=== PATIENT | male | born 1945 | race Caucasian/White ===

== ENCOUNTER → 2019-10-24 09:07 | Outpatient (BNVA) | payer OTHER, SELFPAY | PROVIDERS: PCP Internal Medicine Cardiovascular Disease; Visit Provider Urology | DX: N40.0 Benign prostatic hyperplasia without lower urinary tract symptoms (principal); N40.1 Benign prostatic hyperplasia with lower urinary tract symptoms; R97.20 Elevated prostate specific antigen [PSA]; N52.1 Erectile dysfunction due to diseases classified elsewhere | CPT/HCPCS: 81001 ==

== ENCOUNTER 2020-02-09 01:31 | Emergency (ER) | payer OTHER, SELFPAY ==
[2020-02-09 01:37] VITALS: BP 102/69; PULSE 86; RESP 18; TEMP 36.7; O2SAT 91; BMI 38.4
[2020-02-09 01:43] VITALS: BP 102/69; PULSE 85; RESP 27; O2SAT 94
--- NOTE | 2020-02-09 01:58 | CTR_ITS ---
PROCEDURE INFORMATION: Exam: CT Head Without Contrast Exam date and time: 02/09/2020 2:24 AM Age: 74 years old Clinical indication: Other: Generalized weakness TECHNIQUE: Imaging protocol: Computed tomography of the head without contrast. Radiation optimization: All CT scans at this facility use at least one of these dose optimization techniques: automated exposure control; mA and/or kV adjustment per patient size (includes targeted exams where dose is matched to clinical indication); or iterative reconstruction. COMPARISON: No relevant prior studies available. RADIATION DOSE METRICS: Total DLP (mGy-cm): 753.196 FINDINGS: Brain: Normal. No hemorrhage. Unremarkable white matter. No mass effect. Ventricles: Normal. No ventriculomegaly. Bones/joints: Unremarkable. No acute fracture. Sinuses: Visualized sinuses are unremarkable. No fluid levels. Mastoid air cells: Visualized mastoid air cells are well aerated. Soft tissues: Unremarkable. CT/CT head wo con* [id number] IMPRESSION: No acute intracranial abnormality. Radiation Dose CTDIVOL = (mGy): DLP = 753.196 (mGy-cm)
--- NOTE | 2020-02-09 01:58 | XRR_ITS ---
PROCEDURE INFORMATION: Exam: XR Chest, 1 View Exam date and time: 02/09/2020 2:23 AM Age: 74 years old Clinical indication: Other: Weakness TECHNIQUE: Imaging protocol: XR of the chest Views: 1 view. COMPARISON: No relevant prior studies available. FINDINGS: Lungs: Flu infiltrates versus atelectasis are seen in left base. No consolidation. Pleural space: Blunting of the left costophrenic angle is seen. No pneumothorax. Heart/Mediastinum: Unremarkable. No cardiomegaly. Bones/joints: Median sternotomy sutures are present. XR/XR chest 1V portable [id number] IMPRESSION: Few infiltrates versus atelectasis are seen in the left base with a small left pleural effusion.
--- NOTE | 2020-02-09 02:00 | ECG_ITS ---
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 Measurements Intervals [place] Rate: 83 P: 42 FL: 178 QRS: -61 QRSD: 103 T: 20 QT: 363 QTc: 427 Interpretive Statements SINUS RHYTHM PATTERN CONSISTENT WITH PULMONARY DISEASE LEFT ANTERIOR FASCICULAR BLOCK [QRS AXIS <= -45, QR IN I, RS IN II] No previous ECG available for comparison Electronically Signed On 02-09-2020 18:11:44 CDT by Juve Burrell M.D. [id number]
[2020-02-09] MEDS: sodium chloride 0.9% 1,000 ML 999 ML IV ×2 (02:22→05:01)
[2020-02-09 02:24] LABS: Basophils % 0.2 %; Hematocrit 43.1 % (42.0-52.0); Hemoglobin 14.3 g/dL (11.7-16.6); Lymphocytes # 0.5 10^3/uL (0.8-4.8); Lymphocytes % 10.9 %; Mean Corpuscular HGB Conc 33.2 g/dL (30.0-36.0); Mean Corpuscular Hemoglobin 29.9 pg (28.0-34.0); Mean Corpuscular Volume 90.2 fL (80-94); Mean Platelet Volume 9.5 fL (7.4-10.4); Monocytes # 0.4 10^3/uL (0.2-0.9); Monocytes % 7.5 %; Neutrophils # 3.86 10^3/uL (1.8-7.7); Neutrophils % 80.6 %; Nucleated Red Blood Cells % 0 %; Platelet Count 143 10^3/cmm (130-400); Red Blood Count 4.78 10^6/uL (4.1-5.3); Red Cell Distribution Width 12.9 % (12.1-15.1); White Blood Count 4.8 10^3/uL (4.0-10.0)
[2020-02-09 02:29] LABS: ABG PCO2 29.6 mmHg (35-45); ABG PH Result 7.41 (7.35-7.45); Arterial Blood Gas Hematocrit 43.9 % (42-52); Base Excess ABG -4.6 mmol/L (-2.0-2.0); Blood Gas Allen Test Pos; Blood Gas Sample Site Radial, right; Blood Gas Sample Type Arterial; HCO3 ABG 18.8 mmol/L (22-26); Oxygen Device NC; PO2 ABG 71.3 mmHg (80.0-100.0)
[2020-02-09 02:56] LABS: Alanine Aminotransferase 44 U/L (0-41); Albumin Level 4.4 g/dL (3.5-5.2); Alkaline Phosphatase 54 IU/L (40-130); Anion Gap 15.9 (5-19); Aspartate Amino Transferase 63 U/L (0-40); Blood Urea Nitrogen 15 mg/dL (8-23); Calcium 8.5 mg/dL (8.5-10.5); Carbon Dioxide 20 mmol/L (22-29); Chloride 100 mmol/L (98-107); Creatine Phosphokinase 99 U/L (39-308); Globulin 3.4 g/dL (1.3-4.6); Glucose 177 mg/dL (65-115); Magnesium 1.8 mg/dL (1.7-2.3); NT Pro B Type Natriuretic Pept 559 pg/mL (0-125); Osmolality Calculated 275 mOsm/kg (285-295); Potassium 3.9 mmol/L (3.5-5.1); Sodium 132 mmol/L (136-145); Total Bilirubin 0.4 mg/dL (0.15-1.2); Total Protein 7.8 g/dL (6.6-8.7)
[2020-02-09 03:19] VITALS: PULSE 83; RESP 28; O2SAT 94
[2020-02-09 03:19] LABS: Troponin(5th) Baseline 16 ng/L (0-15)
--- NOTE | 2020-02-09 04:00 | ECG_ITS ---
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 Measurements Intervals [place] Rate: 84 P: 57 [place]: 175 QRS: -63 QRSD: 110 T: 33 QT: 366 QTc: 433 Interpretive Statements SINUS RHYTHM PATTERN CONSISTENT WITH PULMONARY DISEASE RIGHT BUNDLE BRANCH BLOCK [120+ ms QRS DURATION, UPRIGHT V1, 40+ ms S IN I/aVL/V4/V5/V6] LEFT ANTERIOR FASCICULAR BLOCK [QRS AXIS <= -45, QR IN I, RS IN II] Compared to ECG 02/09/2020 02:29:04 Right bundle-branch block now present Electronically Signed On 02-09-2020 18:14:54 CDT by Juve Burrell M.D. [id number]
[2020-02-09 04:20] VITALS: BP 91/56; PULSE 82; RESP 24; O2SAT 93
[2020-02-09 04:48] LABS: Troponin 5 2HR 14.25 ng/L (0-15)
[2020-02-09 04:55] LABS: Troponin 5 2HR Delta -1.75 ABS# (0-10)
[2020-02-09 05:04] VITALS: BP 110/65; PULSE 81; RESP 20; O2SAT 92
[2020-02-09 06:19] LABS: Add Urine Microscopic? NO
[2020-02-09 06:27] LABS: Bilirubin Urine Neg (NEGATIVE); Blood Urine Neg (Negative); Glucose Urine UA Norm (Normal); Ketones Urine Negative (Negative); Leukocyte Esterase Urine Negative (Negative); Nitrate Urine Negative (Negative); Protein Urine Neg (Negative); Urine Appearance Clear (CLEAR); Urine Color Dark Yellow (Yellow); Urobilinogen Urine Norm (Negative); pH Urine 5 (5-7)
[2020-02-09 07:02] VITALS: BP 105/59; PULSE 78; RESP 20; O2SAT 92
--- NOTE | 2020-02-09 22:01 | W.ED.GENADLT ---
HPI - General Adult General: Chief complaint: General Medical Stated complaint: WEAKNESS/ FALL Time Seen by Provider: 02/09/20 01:47 History of Present Illness: HPI narrative: 74-year-old male presents not feeling well. He is generally weak all over. He is diaphoretic. He denies any chest pain, significant shortness of breath, other concerning symptoms. He has been growing weaker over the past couple of days, and slid out of bed tonight. He did not fall and injure himself, but could not get back up off the floor. 911 was called Onset (ago): day(s) Radiation: non-radiation Quality: other Pain Consistency: other Relieving factors: none Exacerbating factors: movement Associated symptoms: Reports diaphoresis, fevers/chills and weakness (generalized); Deny chest pain, confusion, cough, dyspnea, headache(s), rash, palpitations or vomiting Review of Systems Const: Reports: diaphoresis Eyes: Denies: change in vision or blurry vision ENMT: Denies: swelling of lips/tongue, post nasal drip or sinus pain Card: Denies: chest pain, palpitations, irregular heart rhythm, edema, swelling of feet/ankles, dyspnea on exertion or orthopnea Resp: Denies: dyspnea GI: Denies: vomiting : Denies: difficulty urinating, urinary urgency or hematuria Musc: Denies: neck pain, back pain, joint redness or joint warmth Skin/Breast: Denies: rash, pruritus or erythema Neuro: Denies: headache(s) or confusion Psych: Denies: anxiety, visual hallucinations or auditory hallucinations PFSH ED PFSH: Medical History (Updated 02/09/20 @ 06:09 by Pranav Thomas DO) BPH loc w urin obs/LUTS CHF (congestive heart failure) COPD (chronic obstructive pulmonary disease) Diabetes Elevated PSA Erectile dysfunction Hyperlipidemia Hypertension Surgical History History of thyroid surgery S/P angioplasties S/P CABG (coronary artery bypass graft) S/P tonsillectomy Stented coronary artery Family History Mother , 70's No problems noted. Father , 73 No problems noted. Social History Smoking and tobacco status: former smoker Alcohol intake: never Marital status: service: Yes Current occupational status: retired History of recent travel: No Physical Exam Const: GENERAL APPEARANCE: cooperative, well developed and ill appearing ORIENTATION/CONSCIOUSNESS: Yes oriented to person, Yes oriented to place and Yes oriented to time HENMT: COMMON NORMALS: normocephalic, external ears normal and Normal external nose present HEAD & SCALP: normocephalic FACE & SINUS: normal facial exam NOSE: Normal external nose present and No nasal discharge present EXTERNAL EAR: Yes external ears normal THROAT: posterior oropharynx normal; no peritonsillar mass Eye: COMMON NORMALS: Equal, round and reactive pupils present, EOMs intact bilaterally and conjunctivae normal EYELID: eyelids normal CONJUNCTIVA: Yes conjunctivae normal PUPIL: Yes Equal, round and reactive pupils present Neck/C-Spine: GENERAL: No tracheal deviation Chest: COMMONS NORMALS: normal inspection of the chest CHEST: No tenderness Resp: COMMON NORMALS: clear to auscultation bilaterally EFFORT & INSPECTION: No tachypneic, No respiratory distress, No retractions, No uses accessory muscles and No tracheal deviation AUSCULTATION: clear to auscultation bilaterally, no rhonchi, no wheezes and lung sounds not diminished Cardio: COMMON NORMALS: regular rate and regular rhythm RATE: regular rate RHYTHM: regular rhythm HEART SOUNDS: no murmurs PERIPHERAL PULSES: radial pulses present GI: INSPECTION: No abdominal distension AUSCULTATION: No Hyperactive bowel sounds present and No Hypoactive bowel sounds present PALPATION: No Guarding due to palpation present (GI) and No Rigid due to palpation PERCUSSION: no dullness to percussion and no tympanic to percussion : COMMON NORMALS: Yes no CVA tenderness BLADDER/KIDNEY EXAM: Yes no CVA tenderness Back/Pelvis: COMMON NORMALS: no CVA tenderness Neuro: SENSORIUM/ORIENTATION: Yes oriented to person, Yes oriented to place and Yes oriented to time Psych: COMMON NORMALS: mental status grossly normal Skin: COMMON NORMALS: no rashes or lesions noted GENERAL SKIN EXAM: no rashes or lesions noted Course Vital Signs: Vital signs: Vital Signs Temperature 98.1 F 02/09/20 01:37 Pulse Rate 78 02/09/20 07:02 Respiratory Rate 20 H 02/09/20 07:02 Blood Pressure 105/59 02/09/20 07:02 Pulse Oximetry 92 02/09/20 07:02 MDM - General Adult MDM Narrative: Medical decision making narrative: 74-year-old gentleman who presents ill-appearing, diaphoretic, and generally weak. His head CT is negative. Chest x-ray is negative. His bicarbonate level is 20 on serum. His blood gas shows a normal pH. His EKG did not reveal any acute ST changes. His troponin did not elevate. His urinalysis is negative. He has received quite a bit of IV fluid in the ER. His blood pressure was not low initially, and improved to normotensive. He is walked in the ER, and feels much better. He was given the option of observation admission, but would like to go home. Lab Data: Attestation: I reviewed the patient's lab results. Labs: Lab Results 02/09/20 02/09/20 02/09/20 Range/Units 02:17 02:17 02:17 WBC 4.8 (4.0-10.0) 10^3/ uL RBC 4.78 (4.1-5.3) 10^6/u L Hgb 14.3 (11.7-16.6) g/dL Hct 43.1 (42.0-52.0) % MCV 90.2 (80-94) fL MCH 29.9 (28.0-34.0) pg MCHC 33.2 (30.0-36.0) g/dL RDW 12.9 (12.1-15.1) % Plt Count 143 (130-400) 10^3/c mm MPV 9.5 (7.4-10.4) fL Neut % (Auto) 80.6 % Lymph % (Auto) 10.9 % [place] % (Auto) 7.5 % Eos % (Auto) 0.0 % Baso % (Auto) 0.2 % Neut # (Auto) 3.86 (1.8-7.7) 10^3/u L Lymph # (Auto) 0.5 L (0.8-4.8) 10^3/u L [place] # (Auto) 0.4 (0.2-0.9) 10^3/u L Eos # (Auto) 0.0 (0.0-0.8) 10^3/u L Baso # (Auto) 0.0 (0.0-0.1) 10^3/u L Nucleated RBC % (a uto) 0 % Nucleated RBCs # 0.0 /100WBC Specimen Type Sample Site ABG pH (7.35-7.45) ABG pCO2 (35-45) mmHg ABG pO2 (80.0-100.0) mmH g ABG HCO3 (22-26) mmol/L ABG Base Excess (-2.0-2.0) mmol/ L Noel Test Hematocrit (42-52) % O2 Delivery Device O2 Liters/Min % Branch Sales And Service Representative ID Sodium 132 L (136-145) mmol/L Potassium 3.9 (3.5-5.1) mmol/L Chloride 100 (98-107) mmol/L Carbon Dioxide 20 L (22-29) mmol/L Anion Gap 15.9 (5-19) BUN 15 (8-23) mg/dL Creatinine 1.2 (0.7-1.2) mg/dL GFR Calculation Not Reportable Glucose 177 H (65-115) mg/dL Calculated Osmolal ity 275 L (285-295) mOsm/k g Calcium 8.5 (8.5-10.5) mg/dL Magnesium 1.8 (1.7-2.3) mg/dL Total Bilirubin 0.4 (0.15-1.2) mg/dL AST 63 H (0-40) U/L ALT 44 H (0-41) U/L Alkaline Phosphata se 54 (40-130) IU/L Creatine Kinase 99 (39-308) U/L Troponin T Baselin e 16 H (0-15) ng/L Troponin T 120 Min [place] (0-15) ng/L Delta Troponin T (0-10) ABS# NT-Pro-B Natriuret Pep 559 H (0-125) pg/mL Total Protein 7.8 (6.6-8.7) g/dL Albumin 4.4 (3.5-5.2) g/dL Globulin 3.4 (1.3-4.6) g/dL Urine Color (Yellow) Urine Appearance (CLEAR) Urine pH (5-7) Ur Specific Gravit y (1.005-1.030) Urine Protein (Negative) Urine Glucose (UA) (Normal) Urine Ketones (Negative) Urine Blood (Negative) Urine Nitrate (Negative) Urine Bilirubin (NEGATIVE) Urine Urobilinogen (Negative) mg/dL Ur Leukocyte Monika ase (Negative) 02/09/20 02/09/20 02/09/20 Range/Units 02:20 04:21 06:09 WBC (4.0-10.0) 10^3/ uL RBC (4.1-5.3) 10^6/u L Hgb (11.7-16.6) g/dL Hct (42.0-52.0) % MCV (80-94) fL MCH (28.0-34.0) pg MCHC (30.0-36.0) g/dL RDW (12.1-15.1) % Plt Count (130-400) 10^3/c mm MPV (7.4-10.4) fL Neut % (Auto) % Lymph % (Auto) % [place] % (Auto) % Eos % (Auto) % Baso % (Auto) % Neut # (Auto) (1.8-7.7) 10^3/u L Lymph # (Auto) (0.8-4.8) 10^3/u L [place] # (Auto) (0.2-0.9) 10^3/u L Eos # (Auto) (0.0-0.8) 10^3/u L Baso # (Auto) (0.0-0.1) 10^3/u L Nucleated RBC % (a uto) % Nucleated RBCs # /100WBC Specimen Type Arterial Sample Site Radial, right ABG pH 7.41 (7.35-7.45) ABG pCO2 29.6 L (35-45) mmHg ABG pO2 71.3 L (80.0-100.0) mmH g ABG HCO3 18.8 L (22-26) mmol/L ABG Base Excess -4.6 L (-2.0-2.0) mmol/ L Noel Test Pos Hematocrit 43.9 (42-52) % O2 Delivery Device Nc O2 Liters/Min 2.0 % Branch Sales And Service Representative ID ellpe Sodium (136-145) mmol/L Potassium (3.5-5.1) mmol/L Chloride (98-107) mmol/L Carbon Dioxide (22-29) mmol/L Anion Gap (5-19) BUN (8-23) mg/dL Creatinine (0.7-1.2) mg/dL GFR Calculation Glucose (65-115) mg/dL Calculated Osmolal ity (285-295) mOsm/k g Calcium (8.5-10.5) mg/dL Magnesium (1.7-2.3) mg/dL Total Bilirubin (0.15-1.2) mg/dL AST (0-40) U/L ALT (0-41) U/L Alkaline Phosphata se (40-130) IU/L Creatine Kinase (39-308) U/L Troponin T Baselin e (0-15) ng/L Troponin T 120 Min [place] 14.25 (0-15) ng/L Delta Troponin T -1.75 L (0-10) ABS# NT-Pro-B Natriuret Pep (0-125) pg/mL Total Protein (6.6-8.7) g/dL Albumin (3.5-5.2) g/dL Globulin (1.3-4.6) g/dL Urine Color Dark yellow (Yellow) Urine Appearance Clear (CLEAR) Urine pH 5 (5-7) Ur Specific Gravit y 1.020 (1.005-1.030) Urine Protein Neg (Negative) Urine Glucose (UA) Norm (Normal) Urine Ketones Negative (Negative) Urine Blood Neg (Negative) Urine Nitrate Negative (Negative) Urine Bilirubin Neg (NEGATIVE) Urine Urobilinogen Norm (Negative) mg/dL Ur Leukocyte Monika ase Negative (Negative) Discharge Plan Discharge Patient Disposition: Home Clinical Impression: Weakness, Acute dehydration Condition: Stable Prescriptions: No Action ipratropium-albuterol 0.5 mg-3 mg(2.5 mg base)/3 mL solution for nebulization 3 ml INHALATION Q6H PRNRF: 0 metformin 1,000 mg tablet 1,000 mg PO DAILY RF: 0 amlodipine 5 mg tablet 5 mg PO DAILY RF: 0 Combivent Respimat 20-100 mcg/actuation mist 1 puff INHALATION Q6H RF: 0 pravastatin 80 mg tablet 80 mg PO DAILY RF: 0 tamsulosin 0.4 mg capsule 0.4 mg PO DAILY RF: 0 spironolactone 25 mg tablet 25 mg PO DAILY RF: 0 furosemide 20 mg tablet 20 mg PO DAILY RF: 0 Fiber Smooth Powder 1 tbsp PO DAILY RF: 0 nitroglycerin 0.3 mg tablet, sublingual 0.3 mg SUBLINGUAL Q5M PRNRF: 0 budesonide-formoterol [Symbicort] 80-4.5 mcg/actuation HFA aerosol inhaler 2 puff INHALATION BID RF: 0 clopidogrel 75 mg tablet 75 mg PO DAILY RF: 0 cholecalciferol (vitamin D3) 1,250 mcg (50,000 unit) capsule PO RF: 0 carvedilol 25 mg tablet 25 mg PO BID RF: 0 aspirin [Adult Aspirin Regimen] 81 mg tablet,delayed release (DR/EC) 81 mg PO DAILY RF: 0 levothyroxine 75 mcg capsule 75 mcg PO DAILY RF: 0 Spiriva Respimat 2.5 mcg/actuation mist 2 inh INHALATION QAM RF: 0 artifi.tears(hypromellose)(PF) 0.3 % drops 1 drop ophthalmic (eye) DAILY PRNRF: 0 Ultra CoQ10 75 mg capsule 75 mg PO DAILY RF: 0 Discharge Orders: Discharge Order (Routine); Ordered 02/09/20 Ordered By: Abril Lynne Referrals: Chau Duncan [Primary Care Provider] - 4-7 days Discharge Diet: Advance as tolerated Discharge Activity: Increase activity as tolerated Patient Instructions: Dehydration (ED), Weakness (ED) Activity Restrictions/Additional Instructions: Make sure you are drinking plenty of fluids, especially for the next 48 hours. For fever greater than 100, mental status changes, syncope or passing out, chest discomfort, other concerning symptoms. Discharge Date/Time: 02/09/20 07:02 Coding Level of Care Code ED [employer] for [facility]
== END 2020-02-09 07:02 | disposition home or self-care (01) ==
PROVIDERS: Emergency Provider Emergency Medicine; PCP Family Medicine
DX: R53.1 Weakness (principal); E86.0 Dehydration; Z79.02 Long term (current) use of antithrombotics/antiplatelets; Z79.82 Long term (current) use of aspirin; Z79.84 Long term (current) use of oral hypoglycemic drugs; I11.0 Hypertensive heart disease with heart failure; I50.9 Heart failure, unspecified; J44.9 Chronic obstructive pulmonary disease, unspecified; E11.9 Type 2 diabetes mellitus without complications; E78.5 Hyperlipidemia, unspecified; Z95.1 Presence of aortocoronary bypass graft; Z87.891 Personal history of nicotine dependence
CPT/HCPCS: 12345; 36600; 70450; 71045; 80053; 81003; 82550; 82803; 83735; 83880; 84484; 85025; 93005; 96360; 96361; 99282; 99284; J7030

== ENCOUNTER 2020-02-12 10:02 | Inpatient (IN) | payer OTHER, MEDICARE, SELFPAY ==
[2020-02-12] VITALS (7 sets, daily range): BP systolic 105–119; BP diastolic 68–73; PULSE 71–83; RESP 18–24; TEMP 36.6–37; O2SAT 91–95; BMI 38.4
--- NOTE | 2020-02-12 10:56 | ECG_ITS ---
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 Measurements Intervals [place] Rate: 80 P: [place]: -1 QRS: -65 QRSD: 111 T: 11 QT: 404 QTc: 468 Interpretive Statements SUPRAVENTRICULAR RHYTHM PATTERN CONSISTENT WITH PULMONARY DISEASE RIGHT BUNDLE BRANCH BLOCK [120+ ms QRS DURATION, UPRIGHT V1, 40+ ms S IN I/aVL/V4/V5/V6] LEFT ANTERIOR FASCICULAR BLOCK [QRS AXIS <= -45, QR IN I, RS IN II] Compared to ECG 02/09/2020 04:18:47 Supraventricular rhythm now present Sinus rhythm no longer present Electronically Signed On 02-12-2020 20:20:01 CDT by Juve Burrell M.D. [id number]
--- NOTE | 2020-02-12 10:56 | XR_ITS ---
WS: [id number] PORTABLE CHEST HISTORY: dyspnea/cough COMPARISON: 02/09/2020 Prior CABG. Study limited by motion. Chronic emphysema. Partial obscuration of the LEFT diaphragm is probably due to areas of atelectasis and pleural thickening. There is increased pleural fat. No pneumothorax. Cardiac size: Mildly enlarged cardiac silhouette. Mediastinum/Aorta: Mild atherosclerosis aorta. No osseous abnormality seen. XR/XR chest 1V portable [id number] IMPRESSION: Chronic emphysema and cardiomegaly. Small LEFT pleural effusion versus pleural thickening.
[2020-02-12 11:41] LABS: Mean Corpuscular HGB Conc 34.2 g/dL (30.0-36.0); Mean Corpuscular Hemoglobin 29.5 pg (28.0-34.0); Mean Corpuscular Volume 86.2 fL (80-94); Mean Platelet Volume 11.6 fL (7.4-10.4); Platelet Count 71 10^3/cmm (130-400); Red Blood Count 4.41 10^6/uL (4.1-5.3); Red Cell Distribution Width 12.6 % (12.1-15.1); White Blood Count 4.8 10^3/uL (4.0-10.0)
[2020-02-12 11:58] LABS: Troponin(5th) Baseline 20 ng/L (0-15)
[2020-02-12 11:59] LABS: Lactic Sepsis W/Reflex 2.1 mmol/L (0.5-2.2)
--- NOTE | 2020-02-12 12:00 | ED_ITS ---
HPI - SOB/Dyspnea General: Chief Complaint: Shortness of Breath/Dyspnea Stated Complaint: COVID SYMPTOMS/WEAKNESS/FALL Time Seen by Provider: 02/12/20 10:08 History of Present Illness: HPI Narrative: 74-year-old male complaining of cough congestion for the last week. He was seen earlier in the week and evaluation was unremarkable. Reviewed those previous notes he is not usually on O2 but now is requiring 2 L/min to maintain his sats in the upper 90s he is not had a productive cough is not had any anosmia. He has had some loss of appetite. Said significant myalgias no nausea vomiting or diarrhea denies fever. Has not been around anyone he knows that his COVID positive he has orthopnea chronically and does not really notice a significant difference. MD elicited complaint: shortness of breath and cough Pertinent past history: COPD and congestive heart failure Onset (ago): day(s) Context: occurred during exertion Timing: constant Severity: moderate Exacerbating factors: exertion Relieving factors: oxygen and rest Known history of: COPD and congestive heart failure Associated symptoms: Reports chest congestion and diaphoresis; Deny abdominal pain, chest pain, cough, dizziness, extremity pain, fever(s), hemoptysis, lightheadedness, myalgias, nausea, orthopnea, palpitations, paresthesias, polydipsia, polyuria, rash, sense of impending doom, syncope or vomiting Treatment prior to arrival: none Review of Systems Const: Reports: diaphoresis; Denies: fever(s) ENMT: Denies: throat pain, ear or mastoid pain, nasal discharge or nasal congestion Card: Denies: chest pain, palpitations, lightheadedness, syncope or orthopnea Resp: Reports: chest congestion; Denies: hemoptysis GI: Denies: abdominal pain, nausea or vomiting : Denies: flank pain, dysuria, urinary frequency or urinary urgency Musc: Denies: extremity pain Skin/Breast: Denies: rash or pruritus Neuro: Denies: dizziness Endo: Denies: polyuria or polydipsia PFSH ED PFSH: Medical History (Updated 02/17/20 @ 06:32 by Jeff Hart DO) BPH loc w urin obs/LUTS CHF (congestive heart failure) COPD (chronic obstructive pulmonary disease) Diabetes Elevated PSA Erectile dysfunction Hyperlipidemia Hypertension Surgical History History of thyroid surgery S/P angioplasties S/P CABG (coronary artery bypass graft) S/P tonsillectomy Stented coronary artery Family History Mother , 70's No problems noted. Father , 73 No problems noted. Social History Smoking and tobacco status: former smoker Alcohol intake: never Marital status: service: Yes Current occupational status: retired History of recent travel: No Physical Exam Const: COMMON NORMALS: no acute distress GENERAL APPEARANCE: cooperative and comfortable ORIENTATION/CONSCIOUSNESS: Yes awake, Yes oriented to person, Yes oriented to place and Yes oriented to time HENMT: COMMON NORMALS: normocephalic, atraumatic and hearing grossly normal bilaterally HEAD & SCALP: normocephalic and atraumatic Eye: COMMON NORMALS: Equal, round and reactive pupils present, EOMs intact bilaterally, conjunctivae normal and no scleral icterus CONJUNCTIVA: Yes conjunctivae normal PUPIL: Yes Equal, round and reactive pupils present Neck/C-Spine: COMMON NORMALS: full ROM, no lymphadenopathy and supple Lymph: LYMPHATIC: no lymphadenopathy noted and no lymphedema noted Resp: AUSCULTATION: rales, rhonchi, wheezes and diminished lung sounds Cardio: COMMON NORMALS: regular rate, regular rhythm and No murmurs present (Cardio) RATE: regular rate RHYTHM: regular rhythm GI: COMMON NORMALS: Soft to palpation and No hepatosplenomegaly present AUSCULTATION: Yes normoactive bowel sounds PALPATION: Yes Soft to palpation, No Tenderness to palpation present (GI), No Guarding due to palpation present (GI) and Yes No hepatosplenomegaly present Extremity: COMMON NORMALS: normal to inspection, capillary refill normal, no clubbing, cyanosis or edema, no calf tenderness and no pedal edema Neuro: SENSORIUM/ORIENTATION: Yes oriented to person, Yes oriented to place and Yes oriented to time Skin: COMMON NORMALS: no rashes or lesions noted GENERAL SKIN EXAM: no rashes or lesions noted Course Vital Signs: Vital signs: Vital Signs Temperature 98.3 F 02/17/20 04:54 Pulse Rate 65 02/17/20 04:54 Respiratory Rate 18 08/24/20 04:54 Blood Pressure 96/56 02/17/20 04:54 Pulse Oximetry 91 02/17/20 04:54 MDM - SOB/Dyspnea MDM Narrative: Medical decision making narrative: Rapid COVID test positive. Suspect the patient will require aggressive therapy will admit started on dexamethasone discussed with Dr. Flanagan he will admit to the MICU. Lab Data: Attestation: I reviewed the patient's lab results. Labs: Lab Results 02/12/20 02/12/20 02/12/20 Range/Units 11:25 11:25 11:25 WBC 4.8 (4.0-10.0) 10^3/ uL RBC 4.41 (4.1-5.3) 10^6/u L Hgb 13.0 (11.7-16.6) g/dL Hct 38.0 L (42.0-52.0) % MCV 86.2 (80-94) fL MCH 29.5 (28.0-34.0) pg MCHC 34.2 (30.0-36.0) g/dL RDW 12.6 (12.1-15.1) % Plt Count 71 L (130-400) 10^3/c mm MPV 11.6 H (7.4-10.4) fL Lymph % (Auto) Not Reportable [place] % (Auto) Not Reportable Lymph # (Auto) Not Reportable [place] # (Auto) Not Reportable Total Counted 100 (0-100) Atypical Lymphs % 16.0 H (0-5) % Absolute Neutrophi ls 3.5 (1.4-6.5) 10^3/c mm Segmented Neutroph ils 73 % Abs Segm Neuts (Ma n) 3.5 (1.6-7.1) 10/cmm Band Neutrophils 0.0 % Abs Band Neuts (Ma n) 0.0 (0.0-1.2) 10^3/c mm Absolute Lymphocyt es 1.1 L (1.2-3.4) 10^3/c mm Lymphocytes (Manua l) 6 % Monocytes (Manual) 4.0 % Absolute Monocytes 0.2 (0.1-0.6) 10^3/c mm Myelocytes 1.0 % Platelet Estimate Decreased (Normal) Anisocytosis Trace Fibrinogen (174-498) mg/dL D-Dimer (0-0.59) ug/mIFE U Sodium 125 L (136-145) mmol/L Potassium 3.3 L (3.5-5.1) mmol/L Chloride 90 L (98-107) mmol/L Carbon Dioxide 24 (22-29) mmol/L Anion Gap 14.3 (5-19) BUN 10 (8-23) mg/dL Creatinine 1.1 (0.7-1.2) mg/dL GFR Calculation Not Reportable Glucose 139 H (65-115) mg/dL Calculated Osmolal ity 258 L (285-295) mOsm/k g Lactic Acid 2.1 (0.5-2.2) mmol/L Lactic Acid (Sepsi s) (0.5-2.2) mmol/L Calcium 7.8 L (8.5-10.5) mg/dL Magnesium (1.7-2.3) mg/dL Ferritin (30-400) ng/mL Total Bilirubin 0.6 (0.15-1.2) mg/dL AST 99 H (0-40) U/L ALT 53 H (0-41) U/L Alkaline Phosphata se 52 (40-130) IU/L Lactate Dehydrogen ase (135-225) U/L Creatine Kinase 246 (39-308) U/L Troponin T Baselin e (0-15) ng/L Troponin T 120 Min native (0-15) ng/L Delta Troponin T (0-10) ABS# C-Reactive Protein (0.0-4.9) mg/L NT-Pro-B Natriuret Pep 2170 H (0-125) pg/mL Total Protein 6.6 (6.6-8.7) g/dL Albumin 3.5 (3.5-5.2) g/dL Globulin 3.1 (1.3-4.6) g/dL Procalcitonin (0-0.5) ng/mL SARS-CoV-2 Ag (Rap id) (Negative) 02/12/20 02/12/20 02/12/20 Range/Units 11:25 11:25 11:25 WBC (4.0-10.0) 10^3/ uL RBC (4.1-5.3) 10^6/u L Hgb (11.7-16.6) g/dL Hct (42.0-52.0) % MCV (80-94) fL MCH (28.0-34.0) pg MCHC (30.0-36.0) g/dL RDW (12.1-15.1) % Plt Count (130-400) 10^3/c mm MPV (7.4-10.4) fL Lymph % (Auto) [place] % (Auto) Lymph # (Auto) [place] # (Auto) Total Counted (0-100) Atypical Lymphs % (0-5) % Absolute Neutrophi ls (1.4-6.5) 10^3/c mm Segmented Neutroph ils % Abs Segm Neuts (Ma n) (1.6-7.1) 10/cmm Band Neutrophils % Abs Band Neuts (Ma n) (0.0-1.2) 10^3/c mm Absolute Lymphocyt es (1.2-3.4) 10^3/c mm Lymphocytes (Manua l) % Monocytes (Manual) % Absolute Monocytes (0.1-0.6) 10^3/c mm Myelocytes % Platelet Estimate (Normal) Anisocytosis Fibrinogen 372 (174-498) mg/dL D-Dimer 3.80 H (0-0.59) ug/mIFE U Sodium (136-145) mmol/L Potassium (3.5-5.1) mmol/L Chloride (98-107) mmol/L Carbon Dioxide (22-29) mmol/L Anion Gap (5-19) BUN (8-23) mg/dL Creatinine (0.7-1.2) mg/dL GFR Calculation Glucose (65-115) mg/dL Calculated Osmolal ity (285-295) mOsm/k g Lactic Acid (0.5-2.2) mmol/L Lactic Acid (Sepsi s) (0.5-2.2) mmol/L Calcium (8.5-10.5) mg/dL Magnesium (1.7-2.3) mg/dL Ferritin (30-400) ng/mL Total Bilirubin (0.15-1.2) mg/dL AST (0-40) U/L ALT (0-41) U/L Alkaline Phosphata se (40-130) IU/L Lactate Dehydrogen ase (135-225) U/L Creatine Kinase (39-308) U/L Troponin T Baselin e 20 H (0-15) ng/L Troponin T 120 Min native (0-15) ng/L Delta Troponin T (0-10) ABS# C-Reactive Protein (0.0-4.9) mg/L NT-Pro-B Natriuret Pep (0-125) pg/mL Total Protein (6.6-8.7) g/dL Albumin (3.5-5.2) g/dL Globulin (1.3-4.6) g/dL Procalcitonin (0-0.5) ng/mL SARS-CoV-2 Ag (Rap id) Positive H (Negative) 02/12/20 02/12/20 02/12/20 Range/Units 13:50 13:50 13:50 WBC (4.0-10.0) 10^3/ uL RBC (4.1-5.3) 10^6/u L Hgb (11.7-16.6) g/dL Hct (42.0-52.0) % MCV (80-94) fL MCH (28.0-34.0) pg MCHC (30.0-36.0) g/dL RDW (12.1-15.1) % Plt Count (130-400) 10^3/c mm MPV (7.4-10.4) fL Lymph % (Auto) [place] % (Auto) Lymph # (Auto) [place] # (Auto) Total Counted (0-100) Atypical Lymphs % (0-5) % Absolute Neutrophi ls (1.4-6.5) 10^3/c mm Segmented Neutroph ils % Abs Segm Neuts (Ma n) (1.6-7.1) 10/cmm Band Neutrophils % Abs Band Neuts (Ma n) (0.0-1.2) 10^3/c mm Absolute Lymphocyt es (1.2-3.4) 10^3/c mm Lymphocytes (Manua l) % Monocytes (Manual) % Absolute Monocytes (0.1-0.6) 10^3/c mm Myelocytes % Platelet Estimate (Normal) Anisocytosis Fibrinogen (174-498) mg/dL D-Dimer (0-0.59) ug/mIFE U Sodium (136-145) mmol/L Potassium (3.5-5.1) mmol/L Chloride (98-107) mmol/L Carbon Dioxide (22-29) mmol/L Anion Gap (5-19) BUN (8-23) mg/dL Creatinine (0.7-1.2) mg/dL GFR Calculation Glucose (65-115) mg/dL Calculated Osmolal ity (285-295) mOsm/k g Lactic Acid (0.5-2.2) mmol/L Lactic Acid (Sepsi s) 2.0 (0.5-2.2) mmol/L Calcium (8.5-10.5) mg/dL Magnesium 1.8 (1.7-2.3) mg/dL Ferritin 5912 H (30-400) ng/mL Total Bilirubin (0.15-1.2) mg/dL AST (0-40) U/L ALT (0-41) U/L Alkaline Phosphata se (40-130) IU/L Lactate Dehydrogen ase 512 H (135-225) U/L Creatine Kinase (39-308) U/L Troponin T Baselin e (0-15) ng/L Troponin T 120 Min native 18.29 H (0-15) ng/L Delta Troponin T -1.71 L (0-10) ABS# C-Reactive Protein 36.2 H (0.0-4.9) mg/L NT-Pro-B Natriuret Pep (0-125) pg/mL Total Protein (6.6-8.7) g/dL Albumin (3.5-5.2) g/dL Globulin (1.3-4.6) g/dL Procalcitonin 0.26 (0-0.5) ng/mL SARS-CoV-2 Ag (Rap id) (Negative) Discharge Plan Discharge Patient Disposition: Admitted As Inpatient Admit Provider: Izabella Flanagan Clinical Impression: COVID-19, CHF (congestive heart failure), Diabetes, Hypertension, BPH loc w urin obs/LUTS, Elevated PSA Condition: Stable Referrals: Chau Duncan [Primary Care Provider] - Interventions: ED Discharge Assessment Last Done: 02/12/20 15:44 ED Charges Last Done: 02/12/20 12:18 Discharge Date/Time: 08/19/20 15:45 Coding Level of Care Code ED Dental Laboratory Worker for Chg Fwd Exam Comprehensive
[2020-02-12 12:05] LABS: Alanine Aminotransferase 53 U/L (0-41); Albumin Level 3.5 g/dL (3.5-5.2); Alkaline Phosphatase 52 IU/L (40-130); Anion Gap 14.3 (5-19); Aspartate Amino Transferase 99 U/L (0-40); Blood Urea Nitrogen 10 mg/dL (8-23); Calcium 7.8 mg/dL (8.5-10.5); Carbon Dioxide 24 mmol/L (22-29); Chloride 90 mmol/L (98-107); Creatine Phosphokinase 246 U/L (39-308); Globulin 3.1 g/dL (1.3-4.6); Glucose 139 mg/dL (65-115); NT Pro B Type Natriuretic Pept 2170 pg/mL (0-125); Osmolality Calculated 258 mOsm/kg (285-295); Potassium 3.3 mmol/L (3.5-5.1); Sodium 125 mmol/L (136-145); Total Bilirubin 0.6 mg/dL (0.15-1.2); Total Protein 6.6 g/dL (6.6-8.7)
[2020-02-12 12:15] LABS: Slide Review Slide Review Perform
[2020-02-12 12:27] LABS: Anisocytosis Trace
[2020-02-12 12:28] LABS: Absolute Neutrophil 3.5 10^3/cmm (1.4-6.5); Absolute Segmented Neutrophil 3.5 10/cmm (1.6-7.1); Lymphocytes 6 %; Lymphocytes Absolute 1.1 10^3/cmm (1.2-3.4); Monocytes Absolute 0.2 10^3/cmm (0.1-0.6); Platelet Estimate Decreased (Normal); Segmented Neutrophils 73 %; Total Cells Counted 100 (0-100)
--- NOTE | 2020-02-12 12:56 | ECG_ITS ---
[facility] Test Date: 2020-02-12 Pat Name: Chau Monroe Department: Room: Gender: Male Visual Coordinator: : 1945 Requested By: Jeff Givens Order Number: [id number] Fernandez MD: Juve Burrell M.D. Measurements Intervals [place] Rate: 80 P: 97 MN: 164 QRS: -63 QRSD: 107 T: 33 QT: 387 QTc: 446 Interpretive Statements SINUS RHYTHM PATTERN CONSISTENT WITH PULMONARY DISEASE RIGHT BUNDLE BRANCH BLOCK [120+ ms QRS DURATION, UPRIGHT V1, 40+ ms S IN I/aVL/V4/V5/V6] LEFT ANTERIOR FASCICULAR BLOCK [QRS AXIS <= -45, QR IN I, RS IN II] Compared to ECG 02/12/2020 11:26:44 Supraventricular rhythm no longer present Electronically Signed On 02-12-2020 20:26:37 CDT by Juve Burrell M.D. [id number]
--- NOTE | 2020-02-12 13:03 | PC.NURSE ---
EKG done at 1300 and shown to ER doctor
[2020-02-12 13:20] LABS: Reflex Lactate Order REFLEX LACTIC ORDERD
[2020-02-12 13:32] LABS: SARS Covid-2 Antigen Positive (Negative)
[2020-02-12 14:18] LABS: Fibrinogen 372 mg/dL (174-498)
[2020-02-12 14:28] LABS: Lactate Dehydrogenase 512 U/L (135-225); Magnesium 1.8 mg/dL (1.7-2.3)
[2020-02-12 14:32] LABS: Troponin 5 2HR 18.29 ng/L (0-15)
[2020-02-12] MEDS: dexamethasone 4 mg/mL INJ 6 MG IVP (14:33)
[2020-02-12 14:43] LABS: Troponin 5 2HR Delta -1.71 ABS# (0-10)
[2020-02-12 14:54] LABS: Procalcitonin 0.26 ng/mL (0-0.5)
[2020-02-12 15:05] LABS: C Reactive Protein 36.2 mg/L (0.0-4.9)
[2020-02-12 15:22] LABS: Ferritin 5912 ng/mL (30-400)
--- NOTE | 2020-02-12 16:56 | ECG_ITS ---
[facility] Test Date: 2020-02-12 Pat Name: Chau Monroe Department: Room: Gender: Male Painter Assistant: : 1945 Requested By: Jeff Givens Order Number: [id number] Fernandez MD: Juve Burrell M.D. Measurements Intervals [place] Rate: 79 P: 59 SC: 156 QRS: -64 QRSD: 110 T: 33 QT: 394 QTc: 453 Interpretive Statements SINUS RHYTHM PATTERN CONSISTENT WITH PULMONARY DISEASE RIGHT BUNDLE BRANCH BLOCK [120+ ms QRS DURATION, UPRIGHT V1, 40+ ms S IN I/aVL/V4/V5/V6] LEFT ANTERIOR FASCICULAR BLOCK [QRS AXIS <= -45, QR IN I, RS IN II] Compared to ECG 02/12/2020 11:27:57 No significant changes Electronically Signed On 02-12-2020 20:26:43 CDT by Juve Burrell M.D. [id number]
--- NOTE | 2020-02-12 17:05 | PM.HP ---
Providers/Chief Complaint Admitting Physician: Izabella Flanagan DO Primary Care Provider: Chau Duncan Chief Complaint: COVID SYMPTOMS/WEAKNESS/FALL History of Present Illness Chau Monroe is a 74 year old male with a past medical history of hypertension, diabetes, coronary artery disease and BPH that presented to the emergency department today for generalized weakness and shortness of breath. He stated that his symptoms have been progressive and ongoing for over a week. He stated that he was seen and evaluated in the emergency department on Monday due to generalized weakness and falling out of bed. He states that he continued to decline at home therefore came into the ER today for further evaluation and treatment. Patient noted nonproductive cough with occasional phlegm over the past few days, reports fatigue and malaise and generalized body aches. Stated that he is been unable to do any type of daily routine activities due to his significant fatigue. He denies any exposure to anyone known positive or under investigation per COVID-19. Reports that him and his have been very cautious, however they have been in public. Patient was seen and evaluated in the emergency department noted to have concern for COVID-19 viral pneumonia and admitted for further evaluation and treatment due to hypoxemia. Review of Systems Const: Reports: fever(s), body aches, change in appetite, fatigue and malaise; Denies: chills Eyes: Denies: change in vision ENMT: Denies: nasal congestion Card: Denies: chest pain, palpitations or edema Resp: Reports: dyspnea, productive cough (Occasional productive cough) and non-productive cough; Denies: hemoptysis GI: Reports: other (Decreased appetite); Denies: abdominal pain, nausea, vomiting, diarrhea, constipation, hematochezia or melena : Denies: dysuria or hematuria Musc: Denies: extremity pain or muscle cramps Skin/Breast: Denies: rash or new lesions Neuro: Denies: headache(s) or dizziness Psych: Denies: anxiety or depression Endo: Denies: polyuria or hot flashes [place]/Lymph: Denies: easy bruising or easy bleeding Medications/Allergies Home Medications Medication Instructions Recorded Confirmed Last Taken Type amlodipine 5 mg tablet 5 mg PO DAILY 10/24/19 02/12/20 02/11/20 History artifi.tears(hypromellose)(PF) 0.3 1 drop OPHTHALMIC (EYE) BID PRN 10/24/19 02/12/20 Unknown History % eye drops aspirin 81 mg tablet,delayed 162 mg PO DAILY 10/24/19 02/12/20 02/12/20 History release carvedilol 25 mg tablet 25 mg PO BID 10/24/19 02/12/20 02/12/20 History clopidogrel 75 mg tablet 75 mg PO DAILY 10/24/19 02/12/20 02/12/20 History furosemide 20 mg tablet 20 mg PO DAILY 10/24/19 02/12/20 02/12/20 History ipratropium 0.5 mg-albuterol 3 mg 3 ml INHALATION QID PRN 10/24/19 02/12/20 02/12/20 History (2.5 mg base)/3 mL nebulization soln ipratropium 20 mcg-albuterol 100 1 puff INHALATION QID 10/24/19 02/12/20 Unknown History mcg/actuation mist for inhalation levothyroxine 75 mcg capsule 75 mcg PO DAILY 10/24/19 02/12/20 Unknown History metformin 1,000 mg tablet 500 mg PO TID 10/24/19 02/12/20 02/12/20 08:00 History pravastatin 80 mg tablet 80 mg PO DAILY 10/24/19 02/12/20 Unknown History psyllium 2 tsp PO DAILY 10/24/19 02/12/20 Unknown History spironolactone 25 mg tablet 25 mg PO DAILY 10/24/19 02/12/20 Unknown History tamsulosin 0.4 mg capsule 0.4 mg PO DAILY 10/24/19 02/12/20 Unknown History tiotropium bromide 2.5 2 inh INHALATION QAM 10/24/19 02/12/20 02/12/20 History mcg/actuation mist for inhalation Fish Oil 2 cap PO BID 02/12/20 02/12/20 Unknown History budesonide-formoterol 2 puff INHALATION BID 02/12/20 02/12/20 02/12/20 History cholecalciferol (vitamin D3) 800 unit PO DAILY 02/12/20 02/12/20 Unknown History [Vitamin D3] methocarbamol 750 - 1,500 mg PO TID PRN 02/12/20 02/12/20 Unknown History mupirocin 1 applic TOPICAL BID PRN 02/12/20 02/12/20 Unknown History nitroglycerin [Nitrostat] 0.4 mg SUBLINGUAL Q5M PRN 02/12/20 02/12/20 Unknown History omeprazole 20 mg PO DAILY PRN 02/12/20 02/12/20 Unknown History Allergies Allergy/AdvReac Type Severity Reaction Status Date / Time atorvastatin [From Lipitor] Allergy muslce Verified 02/09/20 01:43 weakness PFSH Acute PFSH: Medical History BPH loc w urin obs/LUTS CHF (congestive heart failure) COPD (chronic obstructive pulmonary disease) Diabetes Elevated PSA Erectile dysfunction Hyperlipidemia Hypertension Surgical History History of thyroid surgery S/P angioplasties S/P CABG (coronary artery bypass graft) S/P tonsillectomy Stented coronary artery Family History Mother , 70's No problems noted. Father , 73 No problems noted. Social History Smoking and tobacco status: former smoker Alcohol intake: never Marital status: service: Yes Current occupational status: retired History of recent travel: No Vitals/I&O/Wt Last Vital Signs Temp 98.6 F 02/12/20 16:20 Pulse 82 02/12/20 16:20 Resp 22 H 02/12/20 16:20 BP 119/73 02/12/20 16:20 Pulse Ox 95 02/12/20 16:20 Weight last 48 hrs Weight 117.934 kg Physical Exam Const: COMMON NORMALS: patient oriented x3 and alert GENERAL APPEARANCE: cooperative ORIENTATION/CONSCIOUSNESS: Yes awake, Yes oriented to person, Yes oriented to place and Yes oriented to time HENMT: COMMON NORMALS: normocephalic and atraumatic HEAD & SCALP: normocephalic and atraumatic Eye: COMMON NORMALS: Equal, round and reactive pupils present PUPIL: Yes Equal, round and reactive pupils present Neck/C-Spine: COMMON NORMALS: supple GENERAL: Yes normal visual inspection Resp: AUSCULTATION: no rhonchi and wheezes OTHER: Diminished breath sounds bilaterally with prolonged expiratory phase, no appreciable wheezing or rhonchi, oxygen by nasal cannula in place Cardio: COMMON NORMALS: regular rate, regular rhythm and No murmurs present (Cardio) RATE: regular rate RHYTHM: regular rhythm GI: COMMON NORMALS: Soft to palpation and non-tender INSPECTION: No abdominal distension AUSCULTATION: Yes normoactive bowel sounds PALPATION: Yes Soft to palpation : COMMON NORMALS: Yes no CVA tenderness BLADDER/KIDNEY EXAM: Yes no CVA tenderness Back/Pelvis: COMMON NORMALS: no CVA tenderness Extremity: COMMON NORMALS: no clubbing, cyanosis or edema and no calf tenderness Neuro: COMMON NORMALS: patient oriented x3, CN's II-XII intact bilaterally, moves all extremities and no focal motor deficits SENSORIUM/ORIENTATION: Yes alert, Yes oriented to person, Yes oriented to place and Yes oriented to time SPEECH: speech normal Psych: COMMON NORMALS: mental status grossly normal and cooperative Skin: COMMON NORMALS: no rashes or lesions noted GENERAL SKIN EXAM: no rashes or lesions noted Data : 02/12/20 11:25 02/12/20 11:25 Micro: Microbiology 02/12/20 11:30 Blood Culture - Preliminary Blood SPECIMEN COLLECTED 02/12/20 11:25 Blood Culture - Preliminary Blood SPECIMEN COLLECTED A&P Assessment and plan (1) COVID-19: COVID-19 viral pneumonia Admitted placed on isolation precautions, droplet and contact COVID-19 testing positive in the ED Oxygen per protocol, currently on 2 L of oxygen by nasal cannula Continue with home inhalers Due to patient's severe disease with SPO2 less than 94% on room air and his comorbidities will start on treatment with remdesivir We will also start on dexamethasone 6 mg daily Discussed with patient the risk and benefits of starting treatment with remedies severe and dexamethasone, he verbalized understanding and agreed with plan Status: Acute (2) Weakness: Secondary to viral illness Status: Acute (3) CHF (congestive heart failure): Patient has small pleural effusion on the right Continue to monitor closely Will start on Lasix 40 mg daily tomorrow continue on spironolactone Monitor intake and output closely with daily weights Status: Acute (4) Hypertension: Hold amlodipine at this time due to blood pressures being on the softer side Status: Acute (5) Diabetes: Due to treatment with dexamethasone anticipate blood sugars to be elevated, placed on sliding scale insulin as needed Status: Acute Additional A&P Information DVT prophylaxis: Lovenox Diet: Carbohydrate consistent CODE STATUS: Full code Attestations Medical Necessity Statement*: Patient requires hospitalization due to COVID-19 viral pneumonia with hypoxemia, expected stay greater than 2 midnights Coding Level of Care Code Acute Client Application Support Specialist for Chg Fwd Diagnoses COVID-19 U07.1 Weakness R53.1 CHF (congestive heart failure) I50.9 Hypertension I10 Diabetes E11.9
[2020-02-12] MEDS: potassium chloride ER 10 mEq Tablet 20 MEQ PO (18:13)
[2020-02-12] MEDS: carvedilol 25 mg Tablet PO (18:14)
[2020-02-12] MEDS: sodium chloride 0.9% 1,000 ML 30 ML IV (18:14)
[2020-02-12] MEDS: docusate sodium 100 mg Capsule PO (18:14)
[2020-02-12] MEDS: enoxaparin 40 mg/0.4 mL Syringe SUBCUT (18:15)
[2020-02-12 18:17] LABS: Glucose Point of Care 177 mg/dL (70-110)
[2020-02-12 18:21] LABS: Troponin 5 6HR 17.51 ng/L (0-15)
[2020-02-12 18:24] LABS: Troponin 5 6HR Delta -2.49 ng/L (0-12)
--- NOTE | 2020-02-12 18:45 | PC.NURSE ---
Received bedside report on patient from Liliya Carr RN. Assumed care at this time.
[2020-02-12 20:17] LABS: Glucose Point of Care 195 mg/dL (70-110)
[2020-02-13] VITALS (18 sets, daily range): BP systolic 91–145; BP diastolic 53–96; PULSE 56–78; RESP 12–26; TEMP 36.4–36.8; O2SAT 87–97; BMI 38.2
--- NOTE | 2020-02-13 00:14 | PC.NURSE ---
Dr. Palacio notified that patient is having periods of apnea while he sleeps and his oxygen saturation drops.
--- NOTE | 2020-02-13 00:15 | PC.NURSE ---
Elevated patients HOB to 45 degrees and increased his oxygen to 4 liters via NC.
[2020-02-13 06:12] LABS: Basophils % 0.7 %; Hematocrit 39.1 % (42.0-52.0); Hemoglobin 13.3 g/dL (11.7-16.6); Lymphocytes # 2.3 10^3/uL (0.8-4.8); Lymphocytes % 42.2 %; Mean Corpuscular Volume 88.1 fL (80-94); Mean Platelet Volume 12.5 fL (7.4-10.4); Monocytes # 0.5 10^3/uL (0.2-0.9); Monocytes % 9.7 %; Neutrophils # 2.55 10^3/uL (1.8-7.7); Neutrophils % 46.8 %; Nucleated Red Blood Cells % 0 %; Platelet Count 91 10^3/cmm (130-400); Red Blood Count 4.44 10^6/uL (4.1-5.3); Red Cell Distribution Width 12.9 % (12.1-15.1); White Blood Count 5.5 10^3/uL (4.0-10.0)
[2020-02-13 06:14] LABS: Alanine Aminotransferase 59 U/L (0-41); Albumin Level 3.7 g/dL (3.5-5.2); Alkaline Phosphatase 54 IU/L (40-130); Anion Gap 13.7 (5-19); Aspartate Amino Transferase 75 U/L (0-40); Blood Urea Nitrogen 13 mg/dL (8-23); C Reactive Protein 47.4 mg/L (0.0-4.9); Carbon Dioxide 26 mmol/L (22-29); Chloride 96 mmol/L (98-107); Globulin 3.3 g/dL (1.3-4.6); Glucose 161 mg/dL (65-115); Osmolality Calculated 274 mOsm/kg (285-295); Potassium 3.7 mmol/L (3.5-5.1); Sodium 132 mmol/L (136-145); Total Bilirubin 0.5 mg/dL (0.15-1.2)
[2020-02-13 06:15] LABS: Slide Review Slide Review Perform
[2020-02-13 06:21] LABS: Glucose Point of Care 196 mg/dL (70-110)
[2020-02-13 06:38] LABS: Ferritin 4292 ng/mL (30-400)
[2020-02-13 06:45] LABS: D Dimer 2.12 ug/mIFEU (0-0.59)
[2020-02-13] MEDS: clopidogrel 75 mg Tablet PO (07:34)
[2020-02-13] MEDS: carvedilol 25 mg Tablet PO ×2 (07:35→16:37)
[2020-02-13] MEDS: docusate sodium 100 mg Capsule PO ×2 (07:35→16:36)
[2020-02-13] MEDS: FUROsemide 40 mg Tablet PO (07:36)
[2020-02-13] MEDS: tamsulosin 0.4 mg Capsule PO (07:37)
[2020-02-13] MEDS: aspirin 81 mg EC Tablet 162 MG PO (07:38)
[2020-02-13] MEDS: levothyroxine 150 mcg Tablet 75 MCG PO (07:38)
[2020-02-13] MEDS: dexamethasone 10 mg/mL INJ 6 MG IVP (07:39)
[2020-02-13] MEDS: spironolactone 25 mg Tablet PO (07:39)
[2020-02-13 08:51] LABS: Add Urine Microscopic? YES; Bilirubin Urine Neg (NEGATIVE); Blood Urine 2+ (Negative); Glucose Urine UA Trace (Normal); Ketones Urine Negative (Negative); Leukocyte Esterase Urine Negative (Negative); Nitrate Urine Negative (Negative); Protein Urine Trace (Negative); Specific Gravity, Urine 1.015 (1.005-1.030); Urine Appearance Clear (CLEAR); Urine Color Yellow (Yellow); Urobilinogen Urine 1 mg/dL (Negative); pH Urine 5 (5-7)
[2020-02-13 09:00] LABS: Add Urine Culture? No; Bacteria Urine 1+; Mucus Urine 2+; WBC Urine 0-4 /hpf (0-5)
--- NOTE | 2020-02-13 09:35 | PC.NURSE ---
patient very weak standing up and needs assistance to transfer. some incontinence/dribbling of urine so transfered to chair and made his bed. dentures removed and brushed, efferdent ordered. noted patients home med pravastatin is bedside, brought to med box after administering in order to prevent future confusion. advair, combivent and spiriva given and oral care afterwards.
--- NOTE | 2020-02-13 10:00 | PC.NURSE ---
night nurse noted apnea on patient and that he uses a cpap at home normally (sleep study done at [facility]) . dr albright aware that retail shift manager did not think cpap was policy. discussed with yudy respanahi and informed her of the issue and that patient had taken all his inhalers and done oral care.
--- NOTE | 2020-02-13 10:07 | PC.NURSE ---
CPAP ORDERED AND ARRANGED FOR LATER TODAY TO BE SET UP BY RT.
--- NOTE | 2020-02-13 10:43 | PC.NURSE ---
NOTED BP LOW NORMAL WILL MONITOR MORE CLOSELY. VITALS NOT TRANSFERING FROM ROOM TO RECORD, MANUALLY PLACING . ADJUSTED FREQUENCY OF MONITOR TO SEE IF THAT IMPROVES RECORDING.
[2020-02-13] MEDS: acetaminophen 325 mg Tablet 650 MG PO (10:51)
[2020-02-13] MEDS: pantoprazole DR 40 mg Tablet PO (10:53)
[2020-02-13 11:28] LABS: Glucose Point of Care 175 mg/dL (70-110)
--- NOTE | 2020-02-13 13:44 | PC.NURSE ---
combivent inhaler due q 6 hrs performed at this time. dr albright at bedside.
--- NOTE | 2020-02-13 14:48 | P.PN_ITS ---
Subjective Subjective: Interval history: Patient awake in the chair at time of exam. Reported continued productive cough. Improved strength today, but remains overall very weak. Denies any nausea or vomiting, decreased appetite. Vitals/I&O/Wt Last Vital Signs Temp 97.5 F L 02/13/20 10:23 Pulse 68 02/13/20 14:28 Resp 20 H 02/13/20 12:37 BP 121/74 02/13/20 12:37 Pulse Ox 93 02/13/20 14:28 02/12/20 02/13/20 02/13/20 22:59 06:59 14:59 Intake Total 360 / 360 694 / 1054 1528.0 / 1528.0 Output Total 380 / 380 740 / 1120 375 / 375 Balance -20 / -20 -46 / -66 1153.0 / 1153.0 Weight last 48 hrs Weight 117.662 kg Weight 117.934 kg Physical Exam Const: COMMON NORMALS: patient oriented x3 and alert GENERAL APPEARANCE: cooperative ORIENTATION/CONSCIOUSNESS: Yes awake, Yes oriented to person, Yes oriented to place and Yes oriented to time HENMT: COMMON NORMALS: normocephalic and atraumatic HEAD & SCALP: normocephalic and atraumatic Eye: COMMON NORMALS: Equal, round and reactive pupils present PUPIL: Yes Equal, round and reactive pupils present Neck/C-Spine: COMMON NORMALS: supple GENERAL: Yes normal visual inspection Resp: AUSCULTATION: no rhonchi and wheezes OTHER: Diminished breath sounds bilaterally with prolonged expiratory phase, no appreciable wheezing or rhonchi, oxygen by nasal cannula in place Cardio: COMMON NORMALS: regular rate, regular rhythm and No murmurs present (Cardio) RATE: regular rate RHYTHM: regular rhythm GI: COMMON NORMALS: Soft to palpation and non-tender INSPECTION: No abdominal distension AUSCULTATION: Yes normoactive bowel sounds PALPATION: Yes Soft to palpation Extremity: COMMON NORMALS: no clubbing, cyanosis or edema and no calf tenderness Neuro: COMMON NORMALS: patient oriented x3, CN's II-XII intact bilaterally, moves all extremities and no focal motor deficits SENSORIUM/ORIENTATION: Yes alert, Yes oriented to person, Yes oriented to place and Yes oriented to time SPEECH: speech normal Psych: COMMON NORMALS: mental status grossly normal and cooperative Skin: COMMON NORMALS: no rashes or lesions noted GENERAL SKIN EXAM: no rashes or lesions noted Data : 02/13/20 04:25 02/13/20 04:25 Micro: Microbiology 02/13/20 12:10 Blood Culture - Preliminary Blood SPECIMEN COLLECTED 02/13/20 12:10 Blood Culture - Preliminary Blood SPECIMEN COLLECTED 02/13/20 09:00 Gram Stain - Final Sputum - Expectorated Sputum 02/12/20 11:30 Blood Culture - Preliminary Blood NEGATIVE TO DATE 02/12/20 11:25 Blood Culture - Preliminary Blood Gram positive cocci A&P Assessment and plan (1) COVID-19: COVID-19 viral pneumonia Isolation precautions, droplet and contact Oxygen per protocol, currently on 3 L of oxygen by nasal cannula Continue with home inhalers Continue treatment with remdesivir Continue dexamethasone 6 mg daily Status: Acute (2) Weakness: Secondary to viral illness Status: Acute (3) CHF (congestive heart failure): Patient has small pleural effusion on the right Continue to monitor closely Lasix 40 mg daily today, however will decrease back to 20 tomorrow due to decreased PO intake, continue on spironolactone Monitor intake and output closely with daily weights Status: Acute (4) Hypertension: Hold amlodipine at this time due to blood pressures being on the softer side Status: Acute (5) Diabetes: Due to treatment with dexamethasone anticipate blood sugars to be elevated, placed on sliding scale insulin as needed Status: Acute Additional A&P Information DVT prophylaxis: Lovenox Diet: Carbohydrate consistent CODE STATUS: Full code Attestations Medical Necessity Statement*: Patient requries further hospitalization due to COVID-19 viral pneumonia Coding Level of Care Code 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
--- NOTE | 2020-02-13 16:05 | PC.NURSE ---
was on cpap from 1400 to 1530.
[2020-02-13 16:15] LABS: Glucose Point of Care 220 mg/dL (70-110)
[2020-02-13] MEDS: sodium chloride 0.9% 1,000 ML 30 ML IV (16:36)
[2020-02-13] MEDS: enoxaparin 40 mg/0.4 mL Syringe SUBCUT (16:42)
--- NOTE | 2020-02-13 20:30 | PC.NURSE ---
Respiratory Meds Administered Combivent Inhaler 2 puffs. Pt placed on CPAP for HS with 2L oxygen bleed in.
[2020-02-13 21:16] LABS: Glucose Point of Care 183 mg/dL (70-110)
--- NOTE | 2020-02-13 21:39 | PC.NURSE ---
O2 titrate Oxygen titrated to 4L via CPAP for sats of 86-88% on 2L. O2 sats now 91-93%.
[2020-02-14] VITALS (24 sets, daily range): BP systolic 85–137; BP diastolic 47–86; PULSE 55–82; RESP 13–25; TEMP 36.1–36.8; O2SAT 91–97
--- NOTE | 2020-02-14 04:59 | PC.NURSE ---
Pt complains of mouth soreness. Assessment reveals white patches to oral mucosa, suspect thrush. Educated patient on rinsing mouth after fluticasone and other steroid inhalants. Will update physician.
[2020-02-14 05:51] LABS: Basophils # 0.1 10^3/uL (0.0-0.1); Basophils % 0.5 %; Hematocrit 36.6 % (42.0-52.0); Hemoglobin 12.4 g/dL (11.7-16.6); Lymphocytes # 3.5 10^3/uL (0.8-4.8); Lymphocytes % 34.2 %; Mean Corpuscular HGB Conc 33.9 g/dL (30.0-36.0); Mean Corpuscular Hemoglobin 29.5 pg (28.0-34.0); Mean Corpuscular Volume 87.1 fL (80-94); Mean Platelet Volume 12.4 fL (7.4-10.4); Monocytes # 0.8 10^3/uL (0.2-0.9); Monocytes % 7.5 %; Neutrophils # 5.81 10^3/uL (1.8-7.7); Neutrophils % 56.9 %; Nucleated Red Blood Cells % 0 %; Platelet Count 124 10^3/cmm (130-400); Red Cell Distribution Width 13.1 % (12.1-15.1); White Blood Count 10.2 10^3/uL (4.0-10.0)
[2020-02-14 06:21] LABS: Anion Gap 12.4 (5-19); Blood Urea Nitrogen 16 mg/dL (8-23); C Reactive Protein 22.3 mg/L (0.0-4.9); Calcium 7.5 mg/dL (8.5-10.5); Carbon Dioxide 26 mmol/L (22-29); Chloride 99 mmol/L (98-107); Glucose 173 mg/dL (65-115); Osmolality Calculated 278 mOsm/kg (285-295); Potassium 3.4 mmol/L (3.5-5.1); Sodium 134 mmol/L (136-145)
[2020-02-14 06:22] LABS: Lactate Dehydrogenase 370 U/L (135-225)
[2020-02-14 06:39] LABS: Slide Review Slide Review Perform
[2020-02-14 07:33] LABS: Glucose Point of Care 142 mg/dL (70-110)
[2020-02-14] MEDS: dexamethasone 10 mg/mL INJ 6 MG IVP (09:39)
[2020-02-14] MEDS: aspirin 81 mg EC Tablet 162 MG PO (09:39)
[2020-02-14] MEDS: levothyroxine 150 mcg Tablet 75 MCG PO (09:39)
[2020-02-14] MEDS: carvedilol 25 mg Tablet PO ×2 (09:39→17:40)
[2020-02-14] MEDS: clopidogrel 75 mg Tablet PO (09:39)
[2020-02-14] MEDS: docusate sodium 100 mg Capsule PO ×2 (09:39→17:40)
[2020-02-14] MEDS: tamsulosin 0.4 mg Capsule PO (09:40)
[2020-02-14] MEDS: spironolactone 25 mg Tablet PO (09:40)
[2020-02-14] MEDS: FUROsemide 20 mg Tablet PO (09:40)
[2020-02-14 11:49] LABS: Glucose Point of Care 164 mg/dL (70-110)
[2020-02-14] MEDS: nystatin 100,000 unit/mL UDC 5 mL 400000 UNIT PO ×3 (12:49→21:10)
[2020-02-14] MEDS: potassium chloride ER 10 mEq Tablet 20 MEQ PO (12:49)
--- NOTE | 2020-02-14 16:36 | P.PN_ITS ---
Subjective Subjective: Interval history: Patient awake in the chair at time of exam. He reported that his energy levels feel slightly improved today. He reports continued cough with sputum production, white sputum. He denies any hemoptysis, no chest pain or abdominal pain. Decreased appetite, however reported that he has been trying to eat most of his meals to help out with his strength. Called and discussed with patient's , Mary Ann, over the phone. She verbalizes understanding and agrees with plan of care Vitals/I&O/Wt Last Vital Signs Temp 98.2 F 02/14/20 16:00 Pulse 68 02/14/20 16:00 Resp 21 H 02/14/20 16:00 BP 91/52 02/14/20 16:00 Pulse Ox 92 02/14/20 16:00 02/14/20 02/14/20 02/14/20 06:59 14:59 22:59 Intake Total 900 / 900 Output Total 525 / 1625 300 / 300 Balance -525 / 755.0 600 / 600 Weight last 48 hrs Weight 118.524 kg Weight 117.662 kg Physical Exam Const: COMMON NORMALS: patient oriented x3 and alert GENERAL APPEARANCE: cooperative ORIENTATION/CONSCIOUSNESS: Yes awake, Yes oriented to person, Yes oriented to place and Yes oriented to time HENMT: COMMON NORMALS: normocephalic and atraumatic HEAD & SCALP: normocephalic and atraumatic Eye: COMMON NORMALS: Equal, round and reactive pupils present PUPIL: Yes Equal, round and reactive pupils present Neck/C-Spine: COMMON NORMALS: supple GENERAL: Yes normal visual inspection Resp: AUSCULTATION: no rhonchi and wheezes OTHER: Diminished breath sounds bilaterally with prolonged expiratory phase, no appreciable wheezing or rhonchi, oxygen by nasal cannula in place Cardio: COMMON NORMALS: regular rate, regular rhythm and No murmurs present (Cardio) RATE: regular rate RHYTHM: regular rhythm GI: COMMON NORMALS: Soft to palpation and non-tender INSPECTION: No abdominal distension PALPATION: Yes Soft to palpation Extremity: COMMON NORMALS: no clubbing, cyanosis or edema and no calf tenderness Neuro: COMMON NORMALS: patient oriented x3, CN's II-XII intact bilaterally, moves all extremities and no focal motor deficits SENSORIUM/ORIENTATION: Yes alert, Yes oriented to person, Yes oriented to place and Yes oriented to time SPEECH: speech normal Psych: COMMON NORMALS: mental status grossly normal and cooperative Skin: COMMON NORMALS: no rashes or lesions noted GENERAL SKIN EXAM: no rashes or lesions noted Data : 02/14/20 04:26 02/14/20 04:26 Micro: Microbiology 02/12/20 11:25 Blood Culture - Preliminary Blood Coagulase negativ staphylococc 02/13/20 12:10 Blood Culture - Preliminary Blood NEGATIVE TO DATE 02/13/20 12:10 Blood Culture - Preliminary Blood NEGATIVE TO DATE 02/13/20 09:00 Gram Stain - Final Sputum - Expectorated Sputum Sputum Culture - Preliminary A&P Assessment and plan (1) COVID-19: COVID-19 viral pneumonia Isolation precautions, droplet and contact Oxygen per protocol, currently on 2 L of oxygen by nasal cannula Continue with home inhalers Continue treatment with remdesivir Continue dexamethasone 6 mg daily Status: Acute (2) Weakness: Secondary to viral illness, slowly improving we will continue ambulation as tolerated Status: Acute (3) CHF (congestive heart failure): Patient has small pleural effusion on the right Continue Lasix 20 mg daily, continue on spironolactone Monitor intake and output closely with daily weights Status: Acute (4) Hypertension: Continue to hold home amlodipine due to soft blood pressure Status: Acute (5) Diabetes: Due to treatment with dexamethasone anticipate blood sugars to be elevated, placed on sliding scale insulin as needed Status: Acute Additional A&P Information DVT prophylaxis: Lovenox Diet: Carbohydrate consistent CODE STATUS: Full code Attestations Medical Necessity Statement*: Patient requires further hospitalization due to COVID-19 viral pneumonia Coding Level of Care 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 Fw Diagnoses COVID-19 U07.1 Weakness R53.1 CHF (congestive heart failure) I50.9 Hypertension I10 Diabetes E11.9
[2020-02-14 17:00] LABS: Glucose Point of Care 205 mg/dL (70-110)
--- NOTE | 2020-02-14 17:23 | PC.RESP ---
PULMONARY REHAB INFORMATION SENT TO PATIENT.
[2020-02-14] MEDS: enoxaparin 40 mg/0.4 mL Syringe SUBCUT (17:40)
[2020-02-14 21:05] LABS: Glucose Point of Care 193 mg/dL (70-110)
[2020-02-14] MEDS: sodium chloride 0.9% 1,000 ML 30 ML IV (21:09)
[2020-02-14] MEDS: trazodone 50 mg Tablet PO (21:11)
[2020-02-15] VITALS (29 sets, daily range): BP systolic 93–142; BP diastolic 54–89; PULSE 59–87; RESP 12–32; TEMP 36.3–36.9; O2SAT 88–95
[2020-02-15 04:32] LABS: Basophils % 0.4 %; Eosinophils % 0.3 %; Hematocrit 36.8 % (42.0-52.0); Hemoglobin 12.2 g/dL (11.7-16.6); Lymphocytes # 3.5 10^3/uL (0.8-4.8); Lymphocytes % 34.4 %; Mean Corpuscular HGB Conc 33.2 g/dL (30.0-36.0); Mean Corpuscular Hemoglobin 29.4 pg (28.0-34.0); Mean Corpuscular Volume 88.7 fL (80-94); Mean Platelet Volume 11.5 fL (7.4-10.4); Monocytes # 0.9 10^3/uL (0.2-0.9); Monocytes % 8.4 %; Neutrophils # 5.57 10^3/uL (1.8-7.7); Neutrophils % 55.2 %; Nucleated Red Blood Cells % 0 %; Platelet Count 170 10^3/cmm (130-400); Red Blood Count 4.15 10^6/uL (4.1-5.3); Red Cell Distribution Width 13.2 % (12.1-15.1); White Blood Count 10.1 10^3/uL (4.0-10.0)
[2020-02-15 04:49] LABS: Anion Gap 10.8 (5-19); Blood Urea Nitrogen 15 mg/dL (8-23); C Reactive Protein 11.1 mg/L (0.0-4.9); Calcium 7.3 mg/dL (8.5-10.5); Carbon Dioxide 28 mmol/L (22-29); Chloride 101 mmol/L (98-107); Glucose 148 mg/dL (65-115); Osmolality Calculated 281 mOsm/kg (285-295); Potassium 3.8 mmol/L (3.5-5.1); Sodium 136 mmol/L (136-145)
[2020-02-15 04:54] LABS: Lactate Dehydrogenase 316 U/L (135-225)
[2020-02-15 05:16] LABS: Ferritin 1048 ng/mL (30-400)
[2020-02-15 05:26] LABS: D Dimer 1.69 ug/mIFEU (0-0.59)
[2020-02-15 05:58] LABS: Slide Review Slide Review Perform
[2020-02-15 07:35] LABS: Glucose Point of Care 147 mg/dL (70-110)
[2020-02-15] MEDS: nystatin 100,000 unit/mL UDC 5 mL 400000 UNIT PO ×4 (07:53→20:39)
[2020-02-15] MEDS: aspirin 81 mg EC Tablet 162 MG PO (07:54)
[2020-02-15] MEDS: potassium chloride ER 10 mEq Tablet 20 MEQ PO (07:54)
[2020-02-15] MEDS: pantoprazole DR 40 mg Tablet PO (07:55)
[2020-02-15] MEDS: tamsulosin 0.4 mg Capsule PO (07:56)
[2020-02-15] MEDS: docusate sodium 100 mg Capsule PO ×2 (07:56→15:20)
[2020-02-15] MEDS: dexamethasone 10 mg/mL INJ 6 MG IVP (07:57)
[2020-02-15] MEDS: carvedilol 25 mg Tablet PO ×2 (07:57→15:23)
[2020-02-15] MEDS: clopidogrel 75 mg Tablet PO (07:58)
[2020-02-15] MEDS: FUROsemide 20 mg Tablet PO (07:59)
[2020-02-15] MEDS: spironolactone 25 mg Tablet PO (07:59)
[2020-02-15] MEDS: levothyroxine 150 mcg Tablet 75 MCG PO (08:21)
--- NOTE | 2020-02-15 10:06 | PC.NURSE ---
PATIENT PERFORMED SPIRIVA, ADVAIR AND COMBIVENT. SWISHED AND SPIT AND THEN TOOK HIS NYSTATIN. DENIED PAIN WANTED TO SLEEP SOME MORE, WARMED BLANKET GIVEN AND HE SAID HE WAS QUITE COMFY.
--- NOTE | 2020-02-15 10:36 | P.PN_ITS ---
Subjective Subjective: Interval history: Patient awake sitting in the chair at time of exam this morning. He reported that he has slightly increased amount of energy today. Reported occasional productive cough. Patient denies any chest pain, no abdominal pain, improved appetite. Vitals/I&O/Wt Last Vital Signs Temp 98.2 F 02/15/20 09:54 Pulse 87 02/15/20 09:00 Resp 32 H 02/15/20 09:00 BP 124/80 02/15/20 09:00 Pulse Ox 94 02/15/20 09:00 02/14/20 02/15/20 02/15/20 22:59 06:59 14:59 Intake Total 1206.5 / 2106.5 485.5 / 2592.0 300 / 300 Output Total 600 / 900 700 / 1600 300 / 300 Balance 606.5 / 1206.5 -214.5 / 992.0 0 / 0 Weight last 48 hrs Weight 117.934 kg Weight 118.524 kg Physical Exam Const: COMMON NORMALS: patient oriented x3 and alert GENERAL APPEARANCE: cooperative ORIENTATION/CONSCIOUSNESS: Yes awake, Yes oriented to person, Yes oriented to place and Yes oriented to time HENMT: COMMON NORMALS: normocephalic and atraumatic HEAD & SCALP: normocephalic and atraumatic Eye: COMMON NORMALS: Equal, round and reactive pupils present PUPIL: Yes Equal, round and reactive pupils present Neck/C-Spine: COMMON NORMALS: supple GENERAL: Yes normal visual inspection Resp: AUSCULTATION: no rhonchi and wheezes OTHER: Diminished breath sounds bilaterally with prolonged expiratory phase, no appreciable wheezing or rhonchi, oxygen by nasal cannula in place Cardio: COMMON NORMALS: regular rate, regular rhythm and No murmurs present (Cardio) RATE: regular rate RHYTHM: regular rhythm GI: COMMON NORMALS: Soft to palpation and non-tender INSPECTION: No abdominal distension AUSCULTATION: Yes normoactive bowel sounds PALPATION: Yes Soft to palpation Extremity: COMMON NORMALS: no clubbing, cyanosis or edema and no calf tenderness Neuro: COMMON NORMALS: patient oriented x3, CN's II-XII intact bilaterally, moves all extremities and no focal motor deficits SENSORIUM/ORIENTATION: Yes alert, Yes oriented to person, Yes oriented to place and Yes oriented to time SPEECH: speech normal Psych: COMMON NORMALS: mental status grossly normal and cooperative Skin: COMMON NORMALS: no rashes or lesions noted GENERAL SKIN EXAM: no rashes or lesions noted Data : 02/15/20 03:40 02/15/20 03:40 Micro: Microbiology 02/12/20 11:25 Blood Culture - Preliminary Blood Coagulase negativ staphylococc 02/13/20 12:10 Blood Culture - Preliminary Blood NEGATIVE TO DATE 02/13/20 12:10 Blood Culture - Preliminary Blood NEGATIVE TO DATE 02/13/20 09:00 Gram Stain - Final Sputum - Expectorated Sputum Sputum Culture - Preliminary A&P Assessment and plan (1) COVID-19: COVID-19 viral pneumonia Isolation precautions, droplet and contact Oxygen per protocol, currently on 2 L of oxygen by nasal cannula, decreased him to 1 L of oxygen by nasal cannula this morning during exam Continue with home inhalers Continue treatment with remdesivir Continue dexamethasone 6 mg daily Status: Acute (2) Weakness: Secondary to viral illness, slowly improving we will continue ambulation as tolerated Status: Acute (3) CHF (congestive heart failure): Patient has small pleural effusion on the right Continue Lasix 20 mg daily, continue on spironolactone Monitor intake and output closely with daily weights Status: Acute (4) Hypertension: Hold home amlodipine due to soft blood pressure Status: Acute (5) Diabetes: Due to treatment with dexamethasone anticipate blood sugars to be elevated, placed on sliding scale insulin as needed Status: Acute Additional A&P Information DVT prophylaxis: Lovenox Diet: Carbohydrate consistent CODE STATUS: Full code Attestations Medical Necessity Statement*: Patient requires hospitalization due to COVID-19 viral pneumonia Coding Level of Care 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
[2020-02-15 11:16] LABS: Glucose Point of Care 146 mg/dL (70-110)
[2020-02-15] MEDS: enoxaparin 40 mg/0.4 mL Syringe SUBCUT (15:24)
--- NOTE | 2020-02-15 17:24 | PC.NURSE ---
combivent and advair given at this time with proper oral care when done. nystatin after dinner and respitory meds. at 1600 patient did 4 laps around the room hooked to oxygen but not the monitors. he tolerated it well. walker used to steady himself. much stronger this time.
[2020-02-15 20:44] LABS: Glucose Point of Care 225 mg/dL (70-110)
[2020-02-15 20:44] LABS: Glucose Point of Care 187 mg/dL (70-110)
[2020-02-15] MEDS: trazodone 50 mg Tablet PO ×2 (21:40→21:45)
--- NOTE | 2020-02-15 21:45 | PC.NURSE ---
Patient requesting sleeping pill. Trazodone administered at this time. Will continue to monitor.
[2020-02-16] VITALS (29 sets, daily range): BP systolic 89–140; BP diastolic 49–88; PULSE 72–93; RESP 14–34; TEMP 36.6–37.3; O2SAT 83–95
--- NOTE | 2020-02-16 03:35 | PC.NURSE ---
Patient's O2 saturation < 90% on 2 L nasal cannula. Assessment performed, O2 probe assessed et changed. O2 saturation continues to be consistently <90%. O2 increased to 4 L nasal cannula. Will continue to monitor et wean as appropriate.
[2020-02-16 04:46] LABS: Basophils % 0.3 %; Hematocrit 39.2 % (42.0-52.0); Hemoglobin 12.8 g/dL (11.7-16.6); Lymphocytes # 3.5 10^3/uL (0.8-4.8); Lymphocytes % 35.3 %; Mean Corpuscular HGB Conc 32.7 g/dL (30.0-36.0); Mean Corpuscular Hemoglobin 29.2 pg (28.0-34.0); Mean Corpuscular Volume 89.5 fL (80-94); Mean Platelet Volume 10.6 fL (7.4-10.4); Monocytes # 1.1 10^3/uL (0.2-0.9); Neutrophils # 5.17 10^3/uL (1.8-7.7); Neutrophils % 51.5 %; Nucleated Red Blood Cells % 0 %; Platelet Count 209 10^3/cmm (130-400); Red Blood Count 4.38 10^6/uL (4.1-5.3); Red Cell Distribution Width 13.4 % (12.1-15.1)
[2020-02-16 05:05] LABS: D Dimer 2.11 ug/mIFEU (0-0.59)
[2020-02-16 05:12] LABS: Anion Gap 9.6 (5-19); Blood Urea Nitrogen 12 mg/dL (8-23); Calcium 7.5 mg/dL (8.5-10.5); Carbon Dioxide 30 mmol/L (22-29); Chloride 94 mmol/L (98-107); Glucose 120 mg/dL (65-115); Osmolality Calculated 267 mOsm/kg (285-295); Potassium 3.6 mmol/L (3.5-5.1); Sodium 130 mmol/L (136-145)
--- NOTE | 2020-02-16 06:58 | XR_ITS ---
WS: [id number] EXAM: AP CHEST: PORTABLE UPRIGHT DATE OF EXAM: 02/16/2020, 0753 hours COMPARISON: Chest x-rays from 02/09/2020 and 02/12/2020 HISTORY: Patient is 74 years old with Covid 19 pneumonia. Hypoxemia.. FINDINGS: The cardiac silhouette is stable. Considered upper limits of normal. 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 Ectasia to the aorta sarabia ggesting hypertension.. The pulmonary vascularity is normal. Chronic lung changes are demonstrated . Right lung is clear. Progressive developing infiltrate and effusion left lung base. No pneumothora x. No acute bony abnormality is seen. XR/XR chest 1V portable [id number] IMPRESSION: Worsening left base pneumonia and small left effusion.
--- NOTE | 2020-02-16 08:14 | DCPLANNER ---
Pg 2 of IM explained to Pt's Spouse; Mary Ann via the phone - [phone]. We will provide pt with a copy when we can get into the room if ever.
[2020-02-16 08:30] LABS: Procalcitonin 0.13 ng/mL (0-0.5)
[2020-02-16 08:33] LABS: Glucose Point of Care 125 mg/dL (70-110)
[2020-02-16] MEDS: clopidogrel 75 mg Tablet PO (08:51)
[2020-02-16] MEDS: docusate sodium 100 mg Capsule PO ×2 (08:51→17:43)
[2020-02-16] MEDS: FUROsemide 20 mg Tablet PO (08:51)
[2020-02-16] MEDS: aspirin 81 mg EC Tablet 162 MG PO (08:51)
[2020-02-16] MEDS: carvedilol 25 mg Tablet PO ×2 (08:51→17:43)
[2020-02-16] MEDS: levothyroxine 150 mcg Tablet 75 MCG PO (08:51)
[2020-02-16] MEDS: nystatin 100,000 unit/mL UDC 5 mL 400000 UNIT PO ×4 (08:51→21:50)
[2020-02-16] MEDS: potassium chloride ER 10 mEq Tablet 20 MEQ PO (08:52)
[2020-02-16] MEDS: spironolactone 25 mg Tablet PO (08:52)
[2020-02-16] MEDS: pantoprazole DR 40 mg Tablet PO (08:52)
[2020-02-16] MEDS: tamsulosin 0.4 mg Capsule PO (08:53)
[2020-02-16] MEDS: FUROsemide 10 mg/mL SDV 2mL 20 MG IVP (09:00)
[2020-02-16] MEDS: levofloxacin-dextrose 5 % 750 MG/150 ML PREMIX 100 MG IV (09:00)
--- NOTE | 2020-02-16 11:32 | P.PN_ITS ---
Subjective Subjective: Interval history: Patient awake in bed at time of exam, reported that he is feeling somewhat better but feels down due to not being able to go home today. Patient reports continued productive cough. Denies any abdominal pain or nausea. Denies any chest pain Vitals/I&O/Wt Last Vital Signs Temp 99.1 F 02/16/20 04:00 Pulse 90 02/16/20 10:00 Resp 28 H 02/16/20 10:00 BP 92/61 02/16/20 10:00 Pulse Ox 92 02/16/20 08:00 02/15/20 02/16/20 02/16/20 22:59 06:59 14:59 Intake Total 944.5 / 1644.5 120 / 120 Output Total 150 / 850 550 / 1400 550 / 550 Balance 794.5 / 794.5 -550 / 244.5 -430 / -430 Weight last 48 hrs Weight 118.388 kg Weight 117.934 kg Physical Exam Const: COMMON NORMALS: patient oriented x3 and alert GENERAL APPEARANCE: cooperative ORIENTATION/CONSCIOUSNESS: Yes awake, Yes oriented to person, Yes oriented to place and Yes oriented to time HENMT: COMMON NORMALS: normocephalic and atraumatic HEAD & SCALP: normocephalic and atraumatic Eye: COMMON NORMALS: Equal, round and reactive pupils present PUPIL: Yes Equal, round and reactive pupils present Neck/C-Spine: COMMON NORMALS: supple GENERAL: Yes normal visual inspection Resp: AUSCULTATION: no rhonchi and wheezes OTHER: Diminished breath sounds bilaterally with prolonged expiratory phase, no appreciable wheezing or rhonchi, oxygen by nasal cannula in place Cardio: COMMON NORMALS: regular rate, regular rhythm and No murmurs present (Cardio) RATE: regular rate RHYTHM: regular rhythm GI: COMMON NORMALS: Soft to palpation and non-tender INSPECTION: No abdominal distension AUSCULTATION: Yes normoactive bowel sounds PALPATION: Yes Soft to palpation Extremity: COMMON NORMALS: no clubbing, cyanosis or edema and no calf tenderness Neuro: COMMON NORMALS: patient oriented x3, CN's II-XII intact bilaterally, moves all extremities and no focal motor deficits SENSORIUM/ORIENTATION: Yes alert, Yes oriented to person, Yes oriented to place and Yes oriented to time SPEECH: speech normal Psych: COMMON NORMALS: mental status grossly normal and cooperative Skin: COMMON NORMALS: no rashes or lesions noted GENERAL SKIN EXAM: no rashes or lesions noted Data : 02/16/20 04:25 02/16/20 04:25 Micro: Microbiology 02/13/20 09:00 Gram Stain - Final Sputum - Expectorated Sputum Sputum Culture - Final A&P Assessment and plan (1) COVID-19: COVID-19 viral pneumonia Isolation precautions, droplet and contact Continue on Remdesivir and restart dexamethasone Increased oxygen requirements overnight and into today, continue to wean oxygen as tolerated. Continue to encourage I-S use and flutter valve use Status: Acute (2) Weakness: Secondary to viral illness, slowly improving we will continue ambulation as tolerated Status: Acute (3) CHF (congestive heart failure): Concern for effusion on the left with increasing consolidation, started on IV Lasix x1 Status: Acute (4) Hypertension: Hold home amlodipine due to soft blood pressure Status: Acute (5) Diabetes: Due to treatment with dexamethasone anticipate blood sugars to be elevated, placed on sliding scale insulin as needed Status: Acute Additional A&P Information Concern for developing pneumonia, started on Levaquin DVT prophylaxis: Lovenox Diet: Carbohydrate consistent CODE STATUS: Full code Attestations Medical Necessity Statement*: Patient requires continued hospitalization due to increasing oxygen requirements with COVID-19 viral pneumonia Coding Level of 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
[2020-02-16 11:53] LABS: Glucose Point of Care 173 mg/dL (70-110)
[2020-02-16] MEDS: dexamethasone 10 mg/mL INJ 6 MG IVP (12:50)
--- NOTE | 2020-02-16 14:17 | PC.NURSE ---
SpO2 noted to decrease to 86% while patient lying on his left side, recovered to 90-92% when patient repositioned.
[2020-02-16 17:03] LABS: Glucose Point of Care 199 mg/dL (70-110)
[2020-02-16] MEDS: enoxaparin 40 mg/0.4 mL Syringe SUBCUT (17:43)
[2020-02-16 21:27] LABS: Glucose Point of Care 261 mg/dL (70-110)
[2020-02-17] VITALS (18 sets, daily range): BP systolic 92–142; BP diastolic 55–89; PULSE 63–83; RESP 14–25; TEMP 36.8–37.1; O2SAT 89–94
[2020-02-17 06:18] LABS: Basophils % 0.3 %; Hematocrit 38.5 % (42.0-52.0); Hemoglobin 12.7 g/dL (11.7-16.6); Lymphocytes # 4.5 10^3/uL (0.8-4.8); Lymphocytes % 39.1 %; Mean Corpuscular Hemoglobin 29.3 pg (28.0-34.0); Mean Corpuscular Volume 88.9 fL (80-94); Monocytes # 1.4 10^3/uL (0.2-0.9); Monocytes % 12.4 %; Neutrophils # 5.17 10^3/uL (1.8-7.7); Neutrophils % 45.3 %; Nucleated Red Blood Cells % 0 %; Platelet Count 243 10^3/cmm (130-400); Red Blood Count 4.33 10^6/uL (4.1-5.3); Red Cell Distribution Width 13.4 % (12.1-15.1); White Blood Count 11.4 10^3/uL (4.0-10.0)
[2020-02-17 06:35] LABS: D Dimer 1.62 ug/mIFEU (0-0.59)
[2020-02-17 06:46] LABS: Alanine Aminotransferase 87 U/L (0-41); Albumin Level 3.3 g/dL (3.5-5.2); Alkaline Phosphatase 50 IU/L (40-130); Anion Gap 12.6 (5-19); Aspartate Amino Transferase 58 U/L (0-40); Blood Urea Nitrogen 13 mg/dL (8-23); C Reactive Protein 10.6 mg/L (0.0-4.9); Calcium 7.7 mg/dL (8.5-10.5); Carbon Dioxide 29 mmol/L (22-29); Chloride 96 mmol/L (98-107); Globulin 3.2 g/dL (1.3-4.6); Glucose 157 mg/dL (65-115); Lactate Dehydrogenase 306 U/L (135-225); Osmolality Calculated 277 mOsm/kg (285-295); Potassium 3.6 mmol/L (3.5-5.1); Sodium 134 mmol/L (136-145); Total Bilirubin 0.5 mg/dL (0.15-1.2); Total Protein 6.5 g/dL (6.6-8.7)
[2020-02-17 07:12] LABS: Slide Review Slide Review Perform
[2020-02-17 07:28] LABS: Glucose Point of Care 153 mg/dL (70-110)
[2020-02-17] MEDS: FUROsemide 20 mg Tablet PO (09:16)
[2020-02-17] MEDS: levofloxacin-dextrose 5 % 750 MG/150 ML PREMIX 100 MG IV (09:16)
[2020-02-17] MEDS: spironolactone 25 mg Tablet PO (09:17)
[2020-02-17] MEDS: dexamethasone 10 mg/mL INJ 6 MG IVP (09:17)
[2020-02-17] MEDS: aspirin 81 mg EC Tablet 162 MG PO (09:17)
[2020-02-17] MEDS: tamsulosin 0.4 mg Capsule PO (09:17)
[2020-02-17] MEDS: nystatin 100,000 unit/mL UDC 5 mL 400000 UNIT PO (09:17)
[2020-02-17] MEDS: pantoprazole DR 40 mg Tablet PO (09:17)
[2020-02-17] MEDS: clopidogrel 75 mg Tablet PO (09:17)
[2020-02-17] MEDS: potassium chloride ER 10 mEq Tablet 20 MEQ PO (09:17)
[2020-02-17] MEDS: levothyroxine 150 mcg Tablet 75 MCG PO (09:17)
[2020-02-17] MEDS: docusate sodium 100 mg Capsule PO (09:17)
[2020-02-17] MEDS: carvedilol 25 mg Tablet PO (09:17)
[2020-02-17 11:47] LABS: Glucose Point of Care 181 mg/dL (70-110)
--- NOTE | 2020-02-17 14:54 | P.DS_ITS ---
Discharge Providers Date of Admission: 02/12/20 14:30 Date of Discharge: February 17, 2020 Attending Provider at Admission: Izabella Flanagan DO Attending Provider at Discharge: Hussain Ybarra MD Primary Care Provider: Chau Duncan Diagnoses at Discharge Discharge Diagnosis (1) COVID-19: Status: Acute Problem details: Left lower lobe community-acquired pneumonia. Secondary bacterial pneumonia cannot be completely ruled out (2) Weakness: Status: Inactive (3) CHF (congestive heart failure): Status: Acute Problem details: Specifics unknown. Patient had no echocardiogram and with COVID-19 this was not ordered. (4) Hypertension: Status: Acute (5) Diabetes: Status: Acute Reason for Visit Reason for Visit: COVID SYMPTOMS/WEAKNESS/FALL Hospital Course Discharge Summary: Patient presented with weakness and shortness of breath. He was diagnosed with COVID-19 pneumonia. He was treated with with dexamethasone and completed treatment with remdesevir. He showed evidence of left lower lobe pneumonia on chest x-ray and since secondary bacterial pneumonia could not be completely ruled out patient was started on Levaquin which I will continue for 4 more days. I will continue dexamethasone orally for 12 more days and add Protonix for GI protection. Patient had home O2 evaluation and did not qualify for oxygen. This morning patient denies shortness of breath or chest pain. Denies abdominal pain or problems with bowel movement. Reports good appetite and oral intake. Adamantly wants to go home. Reports that he is ambulating in the room without difficulty. Patient was told to come back if his condition worsens. Patient lives with his and at this point it is unknown whether is infected or not. Patient reports that he will continue with precautions and patient and will continue using masks for next couple of weeks. Physical Exam Const: COMMON NORMALS: no acute distress and patient oriented x3 Resp: COMMON NORMALS: normal respiratory effort and clear to auscultation bilaterally AUSCULTATION: clear to auscultation bilaterally Cardio: COMMON NORMALS: regular rate, regular rhythm and S2 normal heart sound present RATE: regular rate RHYTHM: regular rhythm HEART SOUNDS: S2 normal heart sound present OTHER: No lower extremity edema GI: COMMON NORMALS: Normal to inspection, nondistended, normoactive bowel sounds present, Soft to palpation and non-tender PALPATION: Yes Soft to palpation Neuro: COMMON NORMALS: patient oriented x3 and no focal motor deficits Discharge Data Data Completed and Pending: Completed Studies During Hospitalization Category Date Time Status XR chest 1V amy ble [id number] Routine Exams 02/16/20 06:58 Completed XR chest 1V amy ble [id number] Stat Exams 02/12/20 10:56 Completed Pending at discharge Category Date Time Status Blood Culture Sta t Lab 02/12/20 11:30 Results Blood Culture Sta t Lab 02/13/20 12:10 Results Labs from last 24 hours 02/17/20 02/17/20 02/17/20 11:18 07:25 06:02 WBC RBC Hgb Hct MCV MCH MCHC RDW Plt Count MPV Neut % (Auto) Lymph % (Auto) [place] % (Auto) Eos % (Auto) Baso % (Auto) Neut # (Auto) Lymph # (Auto) [place] # (Auto) Eos # (Auto) Baso # (Auto) Nucleated RBC % (a uto) Nucleated RBCs # D-Dimer Sodium Potassium Chloride Carbon Dioxide Anion Gap BUN Creatinine GFR Calculation Glucose POC Glucose 181 153 Calculated Osmolal ity Calcium Total Bilirubin AST ALT Alkaline Phosphata se Lactate Dehydrogen ase 306 H C-Reactive Protein Total Protein Albumin Globulin 02/17/20 02/17/20 02/17/20 06:02 06:02 06:02 WBC 11.4 H RBC 4.33 Hgb 12.7 Hct 38.5 L MCV 88.9 MCH 29.3 MCHC 33.0 RDW 13.4 Plt Count 243 MPV 10.0 Neut % (Auto) 45.3 Lymph % (Auto) 39.1 [place] % (Auto) 12.4 Eos % (Auto) 0.0 Baso % (Auto) 0.3 Neut # (Auto) 5.17 Lymph # (Auto) 4.5 [place] # (Auto) 1.4 H Eos # (Auto) 0.0 Baso # (Auto) 0.0 Nucleated RBC % (a uto) 0 Nucleated RBCs # 0.0 D-Dimer 1.62 H Sodium 134 L Potassium 3.6 Chloride 96 L Carbon Dioxide 29 Anion Gap 12.6 BUN 13 Creatinine 0.8 GFR Calculation Not Reportable Glucose 157 H POC Glucose Calculated Osmolal ity 277 L Calcium 7.7 L Total Bilirubin 0.5 AST 58 H ALT 87 H Alkaline Phosphata se 50 Lactate Dehydrogen ase C-Reactive Protein 10.6 H Total Protein 6.5 L Albumin 3.3 L Globulin 3.2 02/16/20 02/16/20 19:55 16:45 WBC RBC Hgb Hct MCV MCH MCHC RDW Plt Count MPV Neut % (Auto) Lymph % (Auto) [place] % (Auto) Eos % (Auto) Baso % (Auto) Neut # (Auto) Lymph # (Auto) [place] # (Auto) Eos # (Auto) Baso # (Auto) Nucleated RBC % (a uto) Nucleated RBCs # D-Dimer Sodium Potassium Chloride Carbon Dioxide Anion Gap BUN Creatinine GFR Calculation Glucose POC Glucose 261 199 Calculated Osmolal ity Calcium Total Bilirubin AST ALT Alkaline Phosphata se Lactate Dehydrogen ase C-Reactive Protein Total Protein Albumin Globulin Vitals: Last Vital Signs Temp 98.8 F 02/17/20 07:00 Pulse 83 02/17/20 12:53 Resp 18 02/17/20 12:53 BP 93/55 02/17/20 12:00 Pulse Ox 91 02/17/20 12:53 Discharge Plan Discharge Patient Disposition: Home Condition: Stable Prescriptions: New dexamethasone [Decadron] 6 mg tablet 6 mg PO DAILY Qty: 12 RF: 0 levofloxacin [Levaquin] 750 mg tablet 750 mg PO DAILY 4 Days Qty: 4 RF: 0 Protonix [address] for susp in packet 40 mg PO DAILY 28 Days Qty: 30 RF: 0 Continued ipratropium-albuterol 0.5 mg-3 mg(2.5 mg base)/3 mL solution for nebulization 3 ml INHALATION QID PRN (Reason: unknown) RF: 0 metformin 1,000 mg tablet 500 mg PO TID RF: 0 Combivent Respimat 20-100 mcg/actuation mist 1 puff INHALATION QID RF: 0 pravastatin 80 mg tablet 80 mg PO DAILY RF: 0 tamsulosin 0.4 mg capsule 0.4 mg PO DAILY RF: 0 spironolactone 25 mg tablet 25 mg PO DAILY RF: 0 furosemide 20 mg tablet 20 mg PO DAILY RF: 0 Fiber Smooth Powder 2 tsp PO DAILY RF: 0 clopidogrel 75 mg tablet 75 mg PO DAILY RF: 0 carvedilol 25 mg tablet 25 mg PO BID RF: 0 aspirin [Adult Aspirin Regimen] 81 mg tablet,delayed release (DR/EC) 162 mg PO DAILY RF: 0 levothyroxine 75 mcg capsule 75 mcg PO DAILY RF: 0 Spiriva Respimat 2.5 mcg/actuation mist 2 inh INHALATION QAM RF: 0 artifi.tears(hypromellose)(PF) 0.3 % drops 1 drop ophthalmic (eye) BID PRN (Reason: unknown) RF: 0 methocarbamol 750 mg Tablet 750 - 1,500 mg PO TID PRN (Reason: Muscle Spasm) RF: 0 omeprazole 20 mg Capsule,Delayed Release(Dr/Ec) 20 mg PO DAILY PRN (Reason: unknown) RF: 0 mupirocin 2 % Ointment 1 applic TOPICAL BID PRN (Reason: unknown) RF: 0 Vitamin D3 10 mcg (400 unit) Tablet 800 unit PO DAILY RF: 0 budesonide-formoterol 160-4.5 mcg/actuation Hfa Aerosol Inhaler 2 puff INHALATION BID RF: 0 Fish Oil 2 cap PO BID RF: 0 Nitrostat 0.4 mg Tablet, Sublingual 0.4 mg SUBLINGUAL Q5M PRN (Reason: Chest Pain) RF: 0 Discontinued amlodipine 5 mg tablet 5 mg PO DAILY RF: 0 Discharge Orders: Discharge Order (Routine); Ordered 02/17/20 Ordered By: Hussain Ybarra Referrals: Chau Duncan [Primary Care Provider] - 4-7 days Discharge Diet: Advance as tolerated Discharge Activity: Increase activity as tolerated Activity Restrictions/Additional Instructions: Please call your doctor or present to emergency department if your condition worsens or you develop diarrhea, lightheadedness, fatigue or see blood in your s tool or black stool. Please keep blood pressure and heart rate log 3 times daily to present to primary care physician next visit for medication adjustment. Discharge Attestations Time Spent in Discharge Care*: greater than 30 min Quality Metrics Clinical Quality Measures During this hospital stay, did patient experience: None Coding Level of Care Code Acute Mergers And Acquisitions Manager for g Fwd Diagnoses COVID-19 U07.1 Weakness R53.1 CHF (congestive heart failure) I50.9 Hypertension I10 Diabetes E11.9
--- NOTE | 2020-02-17 15:57 | PC.NURSE ---
Pt discharged via wheelchair. Discharge instructions given via phone to patient's , and to patient face to face. Pt verbalized understanding of all instructions. All belongings sent with patient.
--- NOTE | 2020-02-17 17:24 | PC.NURSE ---
Patient's home pravastatin prescription being held at [facility] for pickup, message left for pt's .
== END 2020-02-17 15:40 | disposition home or self-care (01) | DRG 177 ==
LOC: ER 11:09 → ICU 14:45
PROVIDERS: Family Medicine; Admitting Provider Family Medicine; PCP Family Medicine; Visit Provider Internal Medicine
DX: U07.1 COVID-19 (principal); J12.89 Other viral pneumonia; J44.0 Chronic obstructive pulmonary disease with (acute) lower respiratory infection; R09.02 Hypoxemia; I11.0 Hypertensive heart disease with heart failure; I50.9 Heart failure, unspecified; E11.9 Type 2 diabetes mellitus without complications; I25.10 Atherosclerotic heart disease of native coronary artery without angina pectoris; N40.1 Benign prostatic hyperplasia with lower urinary tract symptoms; R97.20 Elevated prostate specific antigen [PSA]; N52.9 Male erectile dysfunction, unspecified; E78.5 Hyperlipidemia, unspecified; E89.0 Postprocedural hypothyroidism; Z95.1 Presence of aortocoronary bypass graft; Z95.5 Presence of coronary angioplasty implant and graft; Z87.891 Personal history of nicotine dependence; Z79.82 Long term (current) use of aspirin
CPT/HCPCS: 12345; 36415; 36416; 71045; 80048; 80053; 81001; 82550; 82728; 82962; 83605; 83615; 83735; 83880; 84145; 84484; 85007; 85025; 85378; 85384; 86140; 87040; 87070; 87205; 87426; 93005; 94640; 94660; 96372; 96375; 99283; J1100; J1650; J1815; J1940; J1956; J3535; J7030

== ENCOUNTER → 2020-04-23 10:17 | Outpatient (BNVA) | payer OTHER, SELFPAY | PROVIDERS: PCP Family Medicine; Visit Provider Urology | DX: R97.20 Elevated prostate specific antigen [PSA] (principal); N40.1 Benign prostatic hyperplasia with lower urinary tract symptoms; N52.1 Erectile dysfunction due to diseases classified elsewhere | CPT/HCPCS: 81003; 84153 ==

== ENCOUNTER → 2020-05-11 11:57 | Outpatient (BNVA) | payer MEDICARE, SELFPAY | PROVIDERS: PCP Family Medicine; Visit Provider Nurse Practitioner Family | DX: Z20.828 Contact with and (suspected) exposure to other viral communicable diseases (principal); J06.9 Acute upper respiratory infection, unspecified | CPT/HCPCS: 87635 ==

== ENCOUNTER 2020-05-13 14:43 | Inpatient (IN) | payer OTHER, MEDICARE, SELFPAY ==
[2020-05-13 14:46] VITALS: BP 123/80; PULSE 77; RESP 30; TEMP 36.5; O2SAT 90; BMI 35.9
--- NOTE | 2020-05-13 15:09 | XR_ITS ---
WS: [id number] Exam: XR chest 1V portable [id number] Date/Time of Exam: 05/13/2020 3:09 PM Reason For Exam: dyspnea Comparison 02/16/2020. Small infiltrate in the right lower lung zone suspicious for pneumonia. Heart size is top limits norm al. The lungs are fully expanded. No pleural effusion. Chronic interstitial changes. Status post CABG surgery. The mediastinum is not widened. Osseous structures are intact. XR/XR chest 1V portable [id number] IMPRESSION: 1. Small infiltrate in the right lower lung zone suspicious for pneumonia. 2. Chronic interstitial changes.
--- NOTE | 2020-05-13 15:13 | CTR_ITS ---
PROCEDURE INFORMATION: Exam: CT Angiography Chest With Contrast Exam date and time: 05/13/2020 4:33 PM Age: 74 years old Clinical indication: Cough and other: Low o2; Prior surgery; Additional info: Dyspnea TECHNIQUE: Imaging protocol: Computed tomographic angiography of the chest with intravenous contrast. 3D rendering (Not supervised by radiologist): MIP and/or 3D reconstructed images were created by the technologist. Radiation optimization: All CT scans at this facility use at least one of these dose optimization techniques: automated exposure control; mA and/or kV adjustment per patient size (includes targeted exams where dose is matched to clinical indication); or iterative reconstruction. Contrast material: OMNI 350; Contrast volume: 78 ml; Contrast route: INTRAVENOUS (IV); COMPARISON: No relevant prior studies available. RADIATION DOSE METRICS: Total DLP (mGy-cm): 569.35 FINDINGS: Pulmonary arteries: No filling defect identified within the pulmonary arteries. Some lower lobe pulmonary artery branches are obscured by significant motion artifact, which limits evaluation. Aorta: Unremarkable. No aortic aneurysm. No aortic dissection. Lungs: The emphysema. Atelectasis and scattered ground-glass opacities in the dependent upper and lower lobes. Pleural space: Unremarkable. No pneumothorax. No pleural effusion. Heart: Coronary artery calcifications. Lymph nodes: Unremarkable. No enlarged lymph nodes. Bones/joints: Median sternotomy changes. Soft tissues: Unremarkable. CT/CT angio chest PE protcl [id number] IMPRESSION: 1. No evidence for pulmonary embolus. Study is limited by breathing motion artifact. 2. Atelectasis and dependent ground-glass opacities in both lung. Mild superimposed multilobar pneumonia is not excluded. Radiation Dose CTDIVOL = (mGy): DLP = 569.35 (mGy-cm)
--- NOTE | 2020-05-13 15:14 | ECG_ITS ---
[facility] Test Date: 2020-05-13 Pat Name: Chau Monroe Department: Room: Gender: Male [employer] Set Up Operator: : [id number] Requested By: Jeff Givens Order Number: [id number] Fernandez MD: PETER LYNCH Measurements Intervals [place] Rate: 78 P: 24 MI: 108 QRS: 32 QRSD: 106 T: 32 QT: 392 QTc: 448 Interpretive Statements SINUS RHYTHM WITH SHORT MI INTERVAL WITH OCCASIONAL VENTRICULAR PREMATURE COMPLEXES Compared to ECG 02/12/2020 13:00:42 Ventricular premature complex(es) now present Short MI interval now present Right bundle-branch block no longer present Left anterior fascicular block no longer present Electronically Signed On 05-13-2020 19:35:14 DERRICK FOLLOWER by PETER LYNCH [id number]
--- NOTE | 2020-05-13 16:05 | ED_ITS ---
HPI - COVID General: Chief Complaint: COVID symptoms Stated Complaint: COVID+ LOW OXY LEVEL Time Seen by Provider: 05/13/20 15:09 Triage information: Has fever, cough or shortness of breath . Exposure to COVID + person last 14 days History of Present Illness: HPI Narrative: 74-year-old male presents complaining of shortness of breath and cough. He tested positive for Covid around 85 to 87 days ago he was retested within that timeframe and was still positive. He has been on a course of doxycycline and steriods. MD complaint: known COVID positive Prior covid testing: yes, results known Prior testing date: 02/12/20 COVID 19 common symptoms: positive cough, non-productive cough, dyspnea and fatigue; negative throat pain, nasal congestion, nausea, vomiting or diarrhea COVID 19 other sytmptoms: negative chest pain Onset (ago): day(s) Pertinent comorbid conditions: diabetes, hypertension and COPD/respiratory disease Treatment prior to arrival: none COVID Results: SARS-CoV-2 Antigen (Rapid) Positive (Negative) H 02/12/20 11:25 02/12/20 SARS-CoV-2 RNA (RT-PCR) Detected (NOT DETECTED) A 05/11/20 11:57 05/11/20 Review of Systems Const: Reports: fatigue ENMT: Denies: throat pain, ear or mastoid pain, nasal discharge or nasal congestion Card: Reports: edema, dyspnea on exertion and orthopnea; Denies: chest pain Resp: Reports: dyspnea and non-productive cough GI: Denies: abdominal pain, nausea, vomiting, hematemesis, coffee ground emesis, diarrhea, constipation, bloating, hematochezia or melena : Denies: flank pain, dysuria, urinary frequency or urinary urgency PFSH ED PFSH: Medical History BPH loc w urin obs/LUTS CHF (congestive heart failure) Specifics unknown. Patient had no echocardiogram and with COVID-19 this was not ordered. COPD (chronic obstructive pulmonary disease) Diabetes Elevated PSA Erectile dysfunction Hyperlipidemia Hypertension Surgical History History of thyroid surgery S/P angioplasties S/P CABG (coronary artery bypass graft) S/P tonsillectomy Stented coronary artery Family History Mother , 70's No problems noted. Father , 73 No problems noted. Social History Smoking and tobacco status: former smoker Alcohol intake: never Marital status: service: Yes Current occupational status: retired History of recent travel: No Physical Exam Const: COMMON NORMALS: no acute distress GENERAL APPEARANCE: cooperative and comfortable ORIENTATION/CONSCIOUSNESS: Yes awake, Yes oriented to person, Yes oriented to place and Yes oriented to time HENMT: COMMON NORMALS: normocephalic, atraumatic and hearing grossly normal bilaterally HEAD & SCALP: normocephalic and atraumatic Neck/C-Spine: COMMON NORMALS: no JVD Resp: AUSCULTATION: rhonchi and wheezes Cardio: COMMON NORMALS: no JVD, regular rate, regular rhythm and No murmurs present (Cardio) RATE: regular rate RHYTHM: regular rhythm GI: COMMON NORMALS: Soft to palpation and No hepatosplenomegaly present AUSCULTATION: Yes normoactive bowel sounds PALPATION: Yes Soft to palpation, No Tenderness to palpation present (GI), No Guarding due to palpation present (GI) and Yes No hepatosplenomegaly present Extremity: COMMON NORMALS: normal to inspection, capillary refill normal, no clubbing, cyanosis or edema, no calf tenderness and no pedal edema Neuro: SENSORIUM/ORIENTATION: Yes oriented to person, Yes oriented to place and Yes oriented to time Skin: COMMON NORMALS: no rashes or lesions noted GENERAL SKIN EXAM: no rashes or lesions noted Course Vital Signs: Vital signs: Vital Signs Temperature 97.7 F 05/13/20 14:46 Pulse Rate 79 05/13/20 17:23 Respiratory Rate 22 H 05/13/20 17:23 Blood Pressure 142/73 05/13/20 17:23 Pulse Oximetry 93 05/13/20 17:23 MDM - COVID MDM Narrative: Medical decision making narrative: Discussed with Dr. Bella we reviewed the imaging together as well we feel this is a case of exacerbation of COPD with pneumonia we will treat with antibiotics he was previously treated for Covid and his repeat Covid is positive within a timeframe that you would expect it potentially still to be positive from the original infection according to his current CDC guidelines. Given that we are planning on patient admitting the patient to the [facility] floor. Lab Data: Labs: Lab Results 05/13/20 05/13/20 05/13/20 Range/Units 15:36 15:36 15:36 WBC 8.9 (4.0-10.0) 10^3/ uL RBC 4.64 (4.1-5.3) 10^6/u L Hgb 13.2 (11.7-16.6) g/dL Hct 41.4 L (42.0-52.0) % MCV 89.2 (80-94) fL MCH 28.4 (28.0-34.0) pg MCHC 31.9 (30.0-36.0) g/dL RDW 13.2 (12.1-15.1) % Plt Count 358 (130-400) 10^3/c mm MPV 9.6 (7.4-10.4) fL Neut % (Auto) 64.9 % Lymph % (Auto) 23.9 % [place] % (Auto) 10.3 % Eos % (Auto) 0.0 % Baso % (Auto) 0.1 % Neut # (Auto) 5.78 (1.8-7.7) 10^3/u L Lymph # (Auto) 2.1 (0.8-4.8) 10^3/u L [place] # (Auto) 0.9 (0.2-0.9) 10^3/u L Eos # (Auto) 0.0 (0.0-0.8) 10^3/u L Baso # (Auto) 0.0 (0.0-0.1) 10^3/u L Nucleated RBC % (a uto) 0 % Nucleated RBCs # 0.0 /100WBC Fibrinogen 685 H (174-498) mg/dL D-Dimer 1.17 H (0-0.59) ug/mIFE U Specimen Type Sample Site ABG pH (7.35-7.45) ABG pCO2 (35-45) mmHg ABG pO2 (80.0-100.0) mmH g ABG HCO3 (22-26) mmol/L ABG Base Excess (-2.0-2.0) mmol/ L Noel Test Hematocrit (42-52) % O2 Delivery Device O2 Liters/Min % FiO2 % Power Transformer Repair Supervisor ID Sodium 132 L (136-145) mmol/L Potassium 3.4 L (3.5-5.1) mmol/L Chloride 92 L (98-107) mmol/L Carbon Dioxide 27 (22-29) mmol/L Anion Gap 16.4 (5-19) BUN 9 (8-23) mg/dL Creatinine 0.9 (0.7-1.2) mg/dL GFR Calculation Not Reportable Glucose 121 H (65-115) mg/dL Calculated Osmolal ity 274 L (285-295) mOsm/k g Lactic Acid (0.5-2.2) mmol/L Calcium 8.9 (8.5-10.5) mg/dL Magnesium 2.0 (1.7-2.3) mg/dL Total Bilirubin 0.5 (0.15-1.2) mg/dL AST 24 (0-40) U/L ALT 20 (0-41) U/L Alkaline Phosphata se 56 (40-130) IU/L Lactate Dehydrogen ase 257 H (135-225) U/L C-Reactive Protein 67.9 H (0.0-4.9) mg/L Total Protein 7.3 (6.6-8.7) g/dL Albumin 3.8 (3.5-5.2) g/dL Globulin 3.5 (1.3-4.6) g/dL Procalcitonin 0.04 (0-0.5) ng/mL 05/13/20 05/13/20 Range/Units 15:36 16:35 WBC (4.0-10.0) 10^3/ uL RBC (4.1-5.3) 10^6/u L Hgb (11.7-16.6) g/dL Hct (42.0-52.0) % MCV (80-94) fL MCH (28.0-34.0) pg MCHC (30.0-36.0) g/dL RDW (12.1-15.1) % Plt Count (130-400) 10^3/c mm MPV (7.4-10.4) fL Neut % (Auto) % Lymph % (Auto) % [place] % (Auto) % Eos % (Auto) % Baso % (Auto) % Neut # (Auto) (1.8-7.7) 10^3/u L Lymph # (Auto) (0.8-4.8) 10^3/u L [place] # (Auto) (0.2-0.9) 10^3/u L Eos # (Auto) (0.0-0.8) 10^3/u L Baso # (Auto) (0.0-0.1) 10^3/u L Nucleated RBC % (a uto) % Nucleated RBCs # /100WBC Fibrinogen (174-498) mg/dL D-Dimer (0-0.59) ug/mIFE U Specimen Type Arterial Sample Site Brachial, right ABG pH 7.50 H (7.35-7.45) ABG pCO2 32.6 L (35-45) mmHg ABG pO2 70.9 L (80.0-100.0) mmH g ABG HCO3 25.3 (22-26) mmol/L ABG Base Excess 2.6 H (-2.0-2.0) mmol/ L Noel Test Pos Hematocrit 44.6 (42-52) % O2 Delivery Device Nc O2 Liters/Min 4.0 % FiO2 36.0 % Power Transformer Repair Supervisor ID Bd Sodium (136-145) mmol/L Potassium (3.5-5.1) mmol/L Chloride (98-107) mmol/L Carbon Dioxide (22-29) mmol/L Anion Gap (5-19) BUN (8-23) mg/dL Creatinine (0.7-1.2) mg/dL GFR Calculation Glucose (65-115) mg/dL Calculated Osmolal ity (285-295) mOsm/k g Lactic Acid 2.6 H (0.5-2.2) mmol/L Calcium (8.5-10.5) mg/dL Magnesium (1.7-2.3) mg/dL Total Bilirubin (0.15-1.2) mg/dL AST (0-40) U/L ALT (0-41) U/L Alkaline Phosphata se (40-130) IU/L Lactate Dehydrogen ase (135-225) U/L C-Reactive Protein (0.0-4.9) mg/L Total Protein (6.6-8.7) g/dL Albumin (3.5-5.2) g/dL Globulin (1.3-4.6) g/dL Procalcitonin (0-0.5) ng/mL COVID Results: SARS-CoV-2 Antigen (Rapid) Positive (Negative) H 02/12/20 11:25 02/12/20 SARS-CoV-2 RNA (RT-PCR) Detected (NOT DETECTED) A 05/11/20 11:57 05/11/20 Discharge Plan Discharge Prescriptions: No Action ipratropium-albuterol 0.5 mg-3 mg(2.5 mg base)/3 mL solution for nebulization 3 ml INHALATION QID PRN (Reason: unknown) RF: 0 metformin 1,000 mg tablet 500 mg PO BID RF: 0 Combivent Respimat 20-100 mcg/actuation mist 1 puff INHALATION QID PRN (Reason: unknown) RF: 0 tamsulosin 0.4 mg capsule 0.4 mg PO DAILY RF: 0 spironolactone 25 mg tablet 25 mg PO DAILY RF: 0 furosemide 20 mg tablet 20 mg PO DAILY PRN (Reason: Edema) RF: 0 Fiber Smooth Powder 2 tsp PO PRN RF: 0 clopidogrel 75 mg tablet 75 mg PO DAILY RF: 0 carvedilol 25 mg tablet 25 mg PO BID RF: 0 aspirin [Adult Aspirin Regimen] 81 mg tablet,delayed release (DR/EC) 162 mg PO DAILY RF: 0 levothyroxine 75 mcg capsule 75 mcg PO DAILY RF: 0 Spiriva Respimat 2.5 mcg/actuation mist 2 inh INHALATION QAM RF: 0 artifi.tears(hypromellose)(PF) 0.3 % drops 1 drop ophthalmic (eye) BID PRN (Reason: unknown) RF: 0 prednisone 20 mg tablet 20 mg PO DAILY 5 Days Qty: 5 RF: 0 ondansetron 4 mg tablet,disintegrating 4 mg PO Q6H PRN (Reason: nausea and vomiting) Qty: 12 RF: 0 doxycycline hyclate 100 mg tablet 100 mg PO BID 7 Days Qty: 14 RF: 0 Zantac 150 mg Tablet 150 mg PO PRN RF: 0 Mucinex 600 mg Tablet Extended Release 12hr 600 mg PO PRN RF: 0 Robitussin-DM See Rx Instructions .ROUTE .COMPLEX RF: 0 methocarbamol 750 mg Tablet 750 - 1,500 mg PO TID PRN (Reason: Muscle Spasm) RF: 0 omeprazole 20 mg Capsule,Delayed Release(Dr/Ec) 20 mg PO DAILY PRN (Reason: unknown) RF: 0 mupirocin 2 % Ointment 1 applic TOPICAL BID PRN (Reason: unknown) RF: 0 cholecalciferol (vitamin D3) [Vitamin D3] 10 mcg (400 unit) Tablet 800 unit PO PRN RF: 0 budesonide-formoterol 160-4.5 mcg/actuation Hfa Aerosol Inhaler 2 puff INHALATION BID RF: 0 nitroglycerin [Nitrostat] 0.4 mg Tablet, Sublingual 0.4 mg SUBLINGUAL Q5M PRN (Reason: Chest Pain) RF: 0 Coding Level of Care Code ED Accounting Manager Controller for Chg Fwd Exam Comprehensive
[2020-05-13 16:10] LABS: Basophils % 0.1 %; Hematocrit 41.4 % (42.0-52.0); Hemoglobin 13.2 g/dL (11.7-16.6); Lymphocytes # 2.1 10^3/uL (0.8-4.8); Lymphocytes % 23.9 %; Mean Corpuscular HGB Conc 31.9 g/dL (30.0-36.0); Mean Corpuscular Hemoglobin 28.4 pg (28.0-34.0); Mean Corpuscular Volume 89.2 fL (80-94); Mean Platelet Volume 9.6 fL (7.4-10.4); Monocytes # 0.9 10^3/uL (0.2-0.9); Monocytes % 10.3 %; Neutrophils # 5.78 10^3/uL (1.8-7.7); Neutrophils % 64.9 %; Nucleated Red Blood Cells % 0 %; Platelet Count 358 10^3/cmm (130-400); Red Blood Count 4.64 10^6/uL (4.1-5.3); Red Cell Distribution Width 13.2 % (12.1-15.1); White Blood Count 8.9 10^3/uL (4.0-10.0)
[2020-05-13 16:28] LABS: Lactic Sepsis W/Reflex 2.6 mmol/L (0.5-2.2)
[2020-05-13 16:31] LABS: D Dimer 1.17 ug/mIFEU (0-0.59)
[2020-05-13 16:32] LABS: Alanine Aminotransferase 20 U/L (0-41); Albumin Level 3.8 g/dL (3.5-5.2); Alkaline Phosphatase 56 IU/L (40-130); Anion Gap 16.4 (5-19); Aspartate Amino Transferase 24 U/L (0-40); Blood Urea Nitrogen 9 mg/dL (8-23); C Reactive Protein 67.9 mg/L (0.0-4.9); Calcium 8.9 mg/dL (8.5-10.5); Carbon Dioxide 27 mmol/L (22-29); Chloride 92 mmol/L (98-107); Globulin 3.5 g/dL (1.3-4.6); Glucose 121 mg/dL (65-115); Lactate Dehydrogenase 257 U/L (135-225); Osmolality Calculated 274 mOsm/kg (285-295); Potassium 3.4 mmol/L (3.5-5.1); Sodium 132 mmol/L (136-145); Total Bilirubin 0.5 mg/dL (0.15-1.2); Total Protein 7.3 g/dL (6.6-8.7)
[2020-05-13 16:33] LABS: Fibrinogen 685 mg/dL (174-498)
[2020-05-13 16:47] LABS: ABG PCO2 32.6 mmHg (35-45); Arterial Blood Gas Hematocrit 44.6 % (42-52); Base Excess ABG 2.6 mmol/L (-2.0-2.0); Blood Gas Allen Test Pos; Blood Gas Operator Identificat BD; Blood Gas Sample Site Brachial, right; Blood Gas Sample Type Arterial; HCO3 ABG 25.3 mmol/L (22-26); Oxygen Device NC; PO2 ABG 70.9 mmHg (80.0-100.0)
[2020-05-13] MEDS: iohexol 350 mg/mL 100 mL Btl IV (16:56)
[2020-05-13 17:14] LABS: Procalcitonin 0.04 ng/mL (0-0.5)
[2020-05-13 17:23] VITALS: BP 142/73; PULSE 79; RESP 22; O2SAT 93
[2020-05-13 17:28] LABS: Ferritin 403 ng/mL (30-400)
[2020-05-13 17:40] LABS: Reflex Lactate Order REFLEX LACTIC ORDERD
[2020-05-13] MEDS: levofloxacin-dextrose 5 % 750 MG/150 ML PREMIX 100 MG IV (17:41)
--- NOTE | 2020-05-13 18:02 | P.HP_ITS ---
Providers/Chief Complaint Primary Care Provider: Chau Duncan Chief Complaint: COVID+ LOW OXY LEVEL History of Present Illness Chau Monroe is a 74 year old male presents to emergency department with yellow phlegm productive cough and shortness of breath over the last 7 to 10 days. Reports that shortly prior to onset of his symptoms his was quite ill with similar symptoms. 2 days ago patient tested positive for COVID-19. Interestingly he was treated once in January with dexamethasone and remdesivir and during this visit patient CT scan is concerning for viral pneumonia along with elevated inflammatory markers. He does not use oxygen at home and in emergency department required 3 L to saturate in the low 90s. ABG showed hypoxia and respiratory alkalosis. Patient was evaluated with CTA showing no evidence of pulmonary emboli. Clinically appears very dry. He reports that for the last 1 week he had very poor appetite but otherwise denies nausea or vomiting. He can taste food fine. He has previous history of coronary artery disease requiring CABG in 1997 followed by 2 stents in 2000. He has been doing well cardiac guo since then. He quit smoking at the same time of his surgery. He does have COPD and uses bronchodilators at home. Review of Systems Const: Denies: fever(s) or chills Eyes: Denies: change in vision ENMT: Denies: throat pain or change in hearing Card: Denies: chest pain, edema or lightheadedness Resp: Reports: dyspnea and productive cough GI: Denies: abdominal pain, nausea, vomiting, dysphagia, diarrhea, constipation, hematochezia or melena Musc: Denies: joint pain or joint swelling Skin/Breast: Denies: rash or erythema Neuro: Denies: headache(s) or weakness in extremities Psych: Denies: depression Endo: Denies: excessive sweating Gomez/Lymph: Denies: easy bleeding or tender lymph nodes All/Imm: Denies: throat swelling Medications/Allergies Home Medications Medication Instructions Recorded Confirmed Last Taken Type artifi.tears(hypromellose)(PF) 0.3 1 drop OPHTHALMIC (EYE) BID PRN 10/24/19 05/13/20 Unknown History % eye drops aspirin 81 mg tablet,delayed 162 mg PO DAILY 10/24/19 05/13/20 05/13/20 History release carvedilol 25 mg tablet 25 mg PO BID 10/24/19 05/13/20 02/12/20 History clopidogrel 75 mg tablet 75 mg PO DAILY 10/24/19 05/13/20 05/12/20 History furosemide 20 mg tablet 20 mg PO DAILY PRN 10/24/19 05/13/20 02/12/20 History ipratropium 0.5 mg-albuterol 3 mg 3 ml INHALATION QID PRN 10/24/19 05/13/20 05/13/20 History (2.5 mg base)/3 mL nebulization soln ipratropium 20 mcg-albuterol 100 1 puff INHALATION QID PRN 10/24/19 05/13/20 Unknown History mcg/actuation mist for inhalation levothyroxine 75 mcg capsule 75 mcg PO DAILY 10/24/19 05/13/20 Unknown History metformin 1,000 mg tablet 500 mg PO BID 10/24/19 05/13/20 02/12/20 08:00 History psyllium 2 tsp PO PRN 10/24/19 05/13/20 Unknown History spironolactone 25 mg tablet 25 mg PO DAILY 10/24/19 05/13/20 05/13/20 History tamsulosin 0.4 mg capsule 0.4 mg PO DAILY 10/24/19 05/13/20 05/12/20 History tiotropium bromide 2.5 2 inh INHALATION QAM 10/24/19 05/13/20 02/12/20 History mcg/actuation mist for inhalation budesonide-formoterol 2 puff INHALATION BID 02/12/20 05/13/20 02/12/20 History cholecalciferol (vitamin D3) 800 unit PO PRN 02/12/20 05/13/20 Unknown History [Vitamin D3] methocarbamol 750 - 1,500 mg PO TID PRN 02/12/20 05/13/20 Unknown History mupirocin 1 applic TOPICAL BID PRN 02/12/20 05/13/20 Unknown History nitroglycerin [Nitrostat] 0.4 mg SUBLINGUAL Q5M PRN 02/12/20 05/13/20 Unknown History omeprazole 20 mg PO DAILY PRN 02/12/20 05/13/20 Unknown History doxycycline hyclate 100 mg tablet 100 mg PO BID 7 Days #14 tab 05/08/20 05/13/20 Unknown Rx ondansetron 4 mg disintegrating 4 mg PO Q6H PRN #12 tab 05/08/20 05/13/20 Unknown Rx tablet prednisone 20 mg tablet 20 mg PO DAILY 5 Days #5 tab 05/08/20 05/13/20 05/12/20 Rx Robitussin-DM See Rx Instructions .ROUTE .COMPLEX 05/13/20 05/13/20 Unknown History guaifenesin [Mucinex] 600 mg PO PRN 05/13/20 05/13/20 Unknown History ranitidine HCl [Zantac] 150 mg PO PRN 05/13/20 05/13/20 Unknown History Allergies Allergy/AdvReac Type Severity Reaction Status Date / Time atorvastatin [From Lipitor] Allergy muslce Verified 05/11/20 11:27 weakness PFSH Acute PFSH: Medical History (Updated 05/13/20 @ 18:19 by Hussain Ybarra MD) BPH loc w urin obs/LUTS CHF (congestive heart failure) Specifics unknown. Currently compensated. COPD (chronic obstructive pulmonary disease) Diabetes Elevated PSA Erectile dysfunction Hyperlipidemia Hypertension Surgical History History of thyroid surgery S/P angioplasties S/P CABG (coronary artery bypass graft) S/P tonsillectomy Stented coronary artery Family History Mother , 70's No problems noted. Father , 73 No problems noted. Social History Smoking and tobacco status: former smoker Alcohol intake: never Marital status: service: Yes Current occupational status: retired History of recent travel: No Vitals/I&O/Wt Last Vital Signs Temp 97.7 F 05/13/20 14:46 Pulse 79 05/13/20 17:23 Resp 22 H 05/13/20 17:23 BP 142/73 05/13/20 17:23 Pulse Ox 93 05/13/20 17:23 Weight last 48 hrs Weight 110.223 kg Physical Exam Const: COMMON NORMALS: no acute distress, patient oriented x3 and alert HENMT: COMMON NORMALS: normocephalic and atraumatic HEAD & SCALP: normocephalic and atraumatic Eye: COMMON NORMALS: EOMs intact bilaterally, conjunctivae normal and no scleral icterus CONJUNCTIVA: Yes conjunctivae normal Neck/C-Spine: COMMON NORMALS: no lymphadenopathy and no meningeal signs Lymph: LYMPHATIC: no lymphadenopathy noted Chest: COMMONS NORMALS: normal palpation of entire chest wall Resp: COMMON NORMALS: No use of accessory muscles OTHER: Overall significantly decreased air movement with very minimal bibasilar Rales. Deep inspiration caused patient to cough. Cardio: COMMON NORMALS: regular rate, regular rhythm and No murmurs present (Cardio) RATE: regular rate RHYTHM: regular rhythm OTHER: No lower extremity edema. Skin is very dry. GI: COMMON NORMALS: Soft to palpation and non-tender PALPATION: Yes Soft to palpation RECTAL EXAM: Yes deferred : COMMON NORMALS: Yes no CVA tenderness BLADDER/KIDNEY EXAM: Yes no CVA tenderness Back/Pelvis: COMMON NORMALS: no CVA tenderness and thoracic and lumbar spine normal to inspection Extremity: COMMON NORMALS: normal to inspection and capillary refill normal Neuro: COMMON NORMALS: patient oriented x3 and no focal motor deficits SENSORIUM/ORIENTATION: Yes alert MENINGEAL SIGNS: Yes no meningeal signs Psych: COMMON NORMALS: mental status grossly normal, Normal thought process present and cooperative THOUGHT PROCESS: Normal thought process present Skin: COMMON NORMALS: no rashes or lesions noted GENERAL SKIN EXAM: no rashes or lesions noted Data : 05/13/20 15:36 05/13/20 15:36 A&P Assessment and plan (1) Pneumonia due to COVID-19 virus: Status: Acute (2) CHF (congestive heart failure): Status: Acute (3) Diabetes: Status: Acute (4) Dehydration with hyponatremia: Status: Acute (5) Hypokalemia: Status: Acute (6) COPD with acute exacerbation: Appears to have some degree of COPD exacerbation. Status: Acute (7) Acute respiratory failure with hypoxia: Status: Acute Additional A&P Information PLAN: Gentle IV hydration with LR. Hold diuretics. Start patient on bronchodilators, dexamethasone and remdesivir. Continue Levaquin initiated in ER as bacterial infection cannot be completely ruled out. Protonix for GI protection. Lovenox for DVT prophylaxis. Restart home medications including carvedilol. Telemetry monitoring. Replete potassium and check magnesium and baseline BNP. Check inflammatory markers every 48 hours. Monitor patient's oxygen status and if shows significant worsening consider transfer to VICU. Attestations Medical Necessity Statement*: Patient with acute hypoxic respite failure due to COVID-19 pneumonia requires close inpatient monitoring and treatment. I expect patient will require more than 2 midnights. Time Spent in Patient Care: Greater than 35 minutes Coding Level of Care Code Acute Websphere Commerce Developer for [facility] Fwd Diagnoses Pneumonia due to COVID-19 virus U07.1; J12.89 CHF (congestive heart failure) I50.9 Diabetes E11.9 Dehydration with hyponatremia E86.0; E87.1 Hypokalemia E87.6 COPD with acute exacerbation J44.1 Acute respiratory failure with hypoxia J96.01
[2020-05-13 18:35] VITALS: PULSE 82; RESP 22; O2SAT 93
[2020-05-13 20:00] VITALS: BP 122/70; PULSE 81; RESP 28; TEMP 37.5; O2SAT 89
--- NOTE | 2020-05-13 20:00 | PC.NURSE ---
Patient arrived via wheelchair. Patient under no distress. Patient belongings in room.
[2020-05-13] MEDS: dexamethasone 4 mg/mL INJ 6 MG IVP (20:05)
[2020-05-13] MEDS: pantoprazole 40 mg SDV IVP (20:06)
[2020-05-13] MEDS: lactated ringers 1,000 ML 50 ML IV (20:08)
[2020-05-13] MEDS: potassium chloride ER 10 mEq Tablet 40 MEQ PO (20:09)
[2020-05-13] MEDS: enoxaparin 40 mg/0.4 mL Syringe SUBCUT (20:10)
[2020-05-13 22:09] VITALS: PULSE 74; RESP 17; O2SAT 92
[2020-05-13 23:07] LABS: Lactic Acid level (Lactate) 1.2 mmol/L (0.5-2.2)
[2020-05-13 23:17] LABS: Magnesium 1.7 mg/dL (1.7-2.3); NT Pro B Type Natriuretic Pept 1222 pg/mL (0-125)
[2020-05-14] VITALS (9 sets, daily range): BP systolic 106–136; BP diastolic 70–89; PULSE 62–81; RESP 18–32; TEMP 36.4–37.4; O2SAT 88–95
--- NOTE | 2020-05-14 01:00 | PC.NURSE ---
An ABG was ordered due to the patient's worsening SpO2 88-90% on 3L NC and RR at 3X's.
[2020-05-14 01:16] LABS: ABG PCO2 33.6 mmHg (35-45); ABG PH Result 7.49 (7.35-7.45); Arterial Blood Gas Hematocrit 40.4 % (42-52); Base Excess ABG 2.6 mmol/L (-2.0-2.0); Blood Gas Operator Identificat HARKR; Blood Gas Sample Site Brachial, right; Blood Gas Sample Type Arterial; HCO3 ABG 25.6 mmol/L (22-26); Oxygen Device NC; PO2 ABG 65.3 mmHg (80.0-100.0)
--- NOTE | 2020-05-14 01:20 | PC.NURSE ---
O2 was titrated to 4L NC from 3L.
--- NOTE | 2020-05-14 05:00 | PC.NURSE ---
Patient has stated that he has felt better than he did when he first arrived. Patient's O2 is above 90% with 4L. Patient mainly slept. No complaints of pain. If patient requires more O2, then ABG should be ordered.
[2020-05-14 05:35] LABS: Basophils % 0.1 %; Hematocrit 36.9 % (42.0-52.0); Lymphocytes # 1.2 10^3/uL (0.8-4.8); Lymphocytes % 15.6 %; Mean Corpuscular HGB Conc 32.5 g/dL (30.0-36.0); Mean Corpuscular Volume 89.1 fL (80-94); Mean Platelet Volume 10.2 fL (7.4-10.4); Monocytes # 0.3 10^3/uL (0.2-0.9); Monocytes % 4.5 %; Neutrophils % 78.6 %; Nucleated Red Blood Cells % 0 %; Platelet Count 332 10^3/cmm (130-400); Red Blood Count 4.14 10^6/uL (4.1-5.3); Red Cell Distribution Width 13.2 % (12.1-15.1); White Blood Count 7.4 10^3/uL (4.0-10.0)
[2020-05-14 05:47] LABS: Alanine Aminotransferase 16 U/L (0-41); Albumin Level 3.3 g/dL (3.5-5.2); Alkaline Phosphatase 48 IU/L (40-130); Anion Gap 17.4 (5-19); Aspartate Amino Transferase 16 U/L (0-40); Blood Urea Nitrogen 9 mg/dL (8-23); Calcium 8.5 mg/dL (8.5-10.5); Carbon Dioxide 24 mmol/L (22-29); Chloride 97 mmol/L (98-107); Globulin 3.3 g/dL (1.3-4.6); Glucose 162 mg/dL (65-115); Magnesium 1.9 mg/dL (1.7-2.3); Osmolality Calculated 280 mOsm/kg (285-295); Potassium 4.4 mmol/L (3.5-5.1); Sodium 134 mmol/L (136-145); Total Bilirubin 0.4 mg/dL (0.15-1.2); Total Protein 6.6 g/dL (6.6-8.7)
[2020-05-14] MEDS: pantoprazole 40 mg SDV IVP ×2 (06:24→17:29)
[2020-05-14] MEDS: clopidogrel 75 mg Tablet PO (08:32)
[2020-05-14] MEDS: carvedilol 25 mg Tablet PO ×2 (08:32→17:28)
[2020-05-14] MEDS: tamsulosin 0.4 mg Capsule PO (08:32)
[2020-05-14] MEDS: levothyroxine 150 mcg Tablet 75 MCG PO (08:33)
[2020-05-14] MEDS: aspirin 81 mg EC Tablet 162 MG PO (08:33)
--- NOTE | 2020-05-14 11:10 | P.PN_ITS ---
Subjective Subjective: Interval history: Patient reports feeling much better this morning. He is on 4 L by nasal cannula saturating in the low 90s during my evaluation. Reports that his cough is less productive but still yellowish in color. Vitals/I&O/Wt Last Vital Signs Temp 97.5 F L 05/14/20 07:42 Pulse 81 05/14/20 09:26 Resp 20 H 05/14/20 09:26 BP 136/89 05/14/20 07:42 Pulse Ox 88 L 05/14/20 09:26 05/13/20 05/14/20 05/14/20 22:59 06:59 14:59 Intake Total 120 / 120 220 / 220 Output Total 0 / 0 1425 / 1425 300 / 300 Balance 0 / 0 -1305 / -1305 -80 / -80 Weight last 48 hrs Weight 110.223 kg Physical Exam Const: COMMON NORMALS: no acute distress and patient oriented x3 Resp: COMMON NORMALS: normal respiratory effort OTHER: Minimal bibasilar Rales with overall decreased air movement. Cardio: COMMON NORMALS: regular rate, regular rhythm and S2 normal heart sound present RATE: regular rate RHYTHM: regular rhythm HEART SOUNDS: S2 normal heart sound present OTHER: No lower extremity edema GI: COMMON NORMALS: Normal to inspection, nondistended, normoactive bowel sounds present, Soft to palpation and non-tender PALPATION: Yes Soft to palpation Neuro: COMMON NORMALS: patient oriented x3 and no focal motor deficits Data : 05/14/20 04:44 05/14/20 04:44 Micro: Microbiology 05/13/20 04:44 Blood Culture - Preliminary Blood SPECIMEN COLLECTED 05/13/20 22:20 Blood Culture - Preliminary Blood SPECIMEN COLLECTED A&P Assessment and plan (1) Pneumonia due to COVID-19 virus: Status: Acute (2) CHF (congestive heart failure): Status: Acute (3) Diabetes: Status: Acute (4) Dehydration with hyponatremia: Improved Status: Acute (5) Hypokalemia: Status: Acute (6) COPD with acute exacerbation: Appears to have some degree of COPD exacerbation. Status: Acute (7) Acute respiratory failure with hypoxia: Status: Acute Additional A&P Information PLAN: We will stop LR. Encouraged oral intake. Restart spironolactone tomorrow. Physical therapy. Continue Levaquin, remdesivir and dexamethasone. Attestations Medical Necessity Statement*: Patient with pneumonia and acute hypoxic respiratory failure requires close inpatient monitoring and treatment. Time Spent in Patient Care: 16 - 35 minutes Coding Level of Care Code Acute Clinical Psychology Professor for g Fwd Diagnoses Pneumonia due to COVID-19 virus U07.1; J12.89 CHF (congestive heart failure) I50.9 Diabetes E11.9 Dehydration with hyponatremia E86.0; E87.1 Hypokalemia E87.6 COPD with acute exacerbation J44.1 Acute respiratory failure with hypoxia J96.01
--- NOTE | 2020-05-14 14:51 | PC.RESP ---
Pulmonary Rehab information sent to patient.
[2020-05-14] MEDS: levofloxacin-dextrose 5% 750 mg-150 mL Premix 100 MG IV (16:11)
[2020-05-14] MEDS: dexamethasone 4 mg/mL INJ 6 MG IVP (21:04)
[2020-05-14] MEDS: enoxaparin 40 mg/0.4 mL Syringe SUBCUT (21:05)
[2020-05-15] VITALS (8 sets, daily range): BP systolic 100–135; BP diastolic 71–81; PULSE 63–94; RESP 18–22; TEMP 36.2–36.7; O2SAT 91–96
[2020-05-15] MEDS: pantoprazole 40 mg SDV IVP ×2 (05:49→17:55)
--- NOTE | 2020-05-15 07:18 | XR_ITS ---
WS: [id number] Exam: XR chest 1V portable [id number] Date/Time of Exam: 05/15/2020 7:50 AM Reason For Exam: pneumonia Comparison 05/13/2020. Previously noted infiltrate in the right lower lung zone shows improvement since previous study. Ther e is also probable infiltrate in the left lower lobe. The lungs are fully inflated. No pleural effusi ons. Heart size is normal. Status post CABG surgery. Regional bony elements are intact. XR/XR chest 1V portable [id number] IMPRESSION: 1. Right lower lobe infiltrate improved since prior study. 2. Left lower lobe infiltrate suggesting pneumonia.
[2020-05-15] MEDS: FUROsemide 10 mg/mL SDV 2mL 20 MG IVP (08:22)
[2020-05-15] MEDS: carvedilol 25 mg Tablet PO ×2 (08:22→17:21)
[2020-05-15] MEDS: spironolactone 25 mg Tablet PO (08:22)
[2020-05-15] MEDS: tamsulosin 0.4 mg Capsule PO (08:22)
[2020-05-15] MEDS: aspirin 81 mg EC Tablet 162 MG PO (08:22)
[2020-05-15] MEDS: clopidogrel 75 mg Tablet PO (08:23)
[2020-05-15] MEDS: levothyroxine 150 mcg Tablet 75 MCG PO (08:23)
--- NOTE | 2020-05-15 11:42 | PM.PN ---
Subjective Subjective: Interval history: Patient reports feeling better during my evaluation. His oxygen requirement increased to 5 L this morning and he was given 1 dose of Lasix. He had good urinary output and after that his O2 was decreased to 4 L and patient reports improvement. He denies chest pain or abdominal pain Vitals/I&O/Wt Last Vital Signs Temp 97.9 F 05/15/20 08:00 Pulse 68 05/15/20 09:14 Resp 22 H 05/15/20 09:14 BP 135/81 05/15/20 08:00 Pulse Ox 96 05/15/20 09:14 05/14/20 05/15/20 05/15/20 22:59 06:59 14:59 Intake Total 730 / 1430 200 / 200 Output Total 300 / 600 650 / 1250 700 / 700 Balance 430 / 830 -650 / 180 -500 / -500 Weight last 48 hrs Weight 110.223 kg Physical Exam Const: COMMON NORMALS: no acute distress and patient oriented x3 Resp: COMMON NORMALS: normal respiratory effort and clear to auscultation bilaterally AUSCULTATION: clear to auscultation bilaterally Cardio: COMMON NORMALS: regular rate, regular rhythm and S2 normal heart sound present RATE: regular rate RHYTHM: regular rhythm HEART SOUNDS: S2 normal heart sound present OTHER: No lower extremity edema GI: COMMON NORMALS: Normal to inspection, nondistended, normoactive bowel sounds present, Soft to palpation and non-tender PALPATION: Yes Soft to palpation Neuro: COMMON NORMALS: patient oriented x3 and no focal motor deficits Data : 05/14/20 04:44 05/15/20 05:30 Micro: Microbiology 05/13/20 04:44 Blood Culture - Preliminary Blood NEGATIVE TO DATE 05/13/20 22:20 Blood Culture - Preliminary Blood NEGATIVE TO DATE A&P Assessment and plan (1) Pneumonia due to COVID-19 virus: Status: Acute (2) CHF (congestive heart failure): Status: Acute (3) Diabetes: Status: Acute (4) Dehydration with hyponatremia: Improved Status: Acute (5) Hypokalemia: Status: Acute (6) COPD with acute exacerbation: Appears to have some degree of COPD exacerbation. Status: Acute (7) Acute respiratory failure with hypoxia: Status: Acute Additional A&P Information PLAN: We will continue current monitoring and treatment. Daily assess for need of Lasix. Will repeat chest x-ray in a.m. Attestations Medical Necessity Statement*: Patient with pneumonia requires close inpatient monitoring and treatment. Time Spent in Patient Care: 16 - 35 minutes Coding Level of Care Code Acute Pediatric Genetic Counselor for [facility] Fwd Diagnoses Pneumonia due to COVID-19 virus U07.1; J12.89 CHF (congestive heart failure) I50.9 Diabetes E11.9 Dehydration with hyponatremia E86.0; E87.1 Hypokalemia E87.6 COPD with acute exacerbation J44.1 Acute respiratory failure with hypoxia J96.01
[2020-05-15] MEDS: levofloxacin-dextrose 5% 750 mg-150 mL Premix 100 MG IV (16:09)
[2020-05-15] MEDS: dexamethasone 4 mg/mL INJ 6 MG IVP (20:24)
[2020-05-15] MEDS: enoxaparin 40 mg/0.4 mL Syringe SUBCUT (20:25)
[2020-05-16] VITALS (9 sets, daily range): BP systolic 102–136; BP diastolic 66–89; PULSE 62–85; RESP 18; TEMP 36.5–36.7; O2SAT 84–98
[2020-05-16 06:42] LABS: Hematocrit 40.4 % (42.0-52.0); Hemoglobin 12.9 g/dL (11.7-16.6); Lymphocytes # 1.1 10^3/uL (0.8-4.8); Lymphocytes % 14.2 %; Mean Corpuscular HGB Conc 31.9 g/dL (30.0-36.0); Mean Corpuscular Hemoglobin 28.6 pg (28.0-34.0); Mean Corpuscular Volume 89.6 fL (80-94); Mean Platelet Volume 9.7 fL (7.4-10.4); Monocytes # 0.4 10^3/uL (0.2-0.9); Monocytes % 5.9 %; Neutrophils # 5.92 10^3/uL (1.8-7.7); Neutrophils % 78.7 %; Nucleated Red Blood Cells % 0 %; Platelet Count 413 10^3/cmm (130-400); Red Blood Count 4.51 10^6/uL (4.1-5.3); Red Cell Distribution Width 13.2 % (12.1-15.1); White Blood Count 7.5 10^3/uL (4.0-10.0)
--- NOTE | 2020-05-16 07:00 | XRR_ITS ---
PROCEDURE INFORMATION: Exam: XR Chest, 1 View Exam date and time: 05/16/2020 7:54 AM Age: 74 years old Clinical indication: Condition or disease; Lung condition and disease; Pneumonia; Viral; Additional info: Covid-19, pneumonia TECHNIQUE: Imaging protocol: XR of the chest Views: 1 view. COMPARISON: CR XR chest 1V portable [id number] 05/15/2020 7:52 AM FINDINGS: Lungs: Bilateral interstitial pulmonary infiltrates and patchy left basilar airspace consolidation are seen consistent with viral pneumonia. This is more prominent on the left side. Overall this has not significantly changed since previous study from 05/15/2020. Pleural space: Unremarkable. No pleural effusion. No pneumothorax. Heart/Mediastinum: The patient has undergone coronary bypass surgery. Bones/joints: Unremarkable. XR/XR chest 1V portable [id number] IMPRESSION: No significant change in the bilateral pulmonary infiltrates.
[2020-05-16 07:12] LABS: Alanine Aminotransferase 17 U/L (0-41); Albumin Level 3.7 g/dL (3.5-5.2); Alkaline Phosphatase 50 IU/L (40-130); Anion Gap 14.2 (5-19); Aspartate Amino Transferase 16 U/L (0-40); Blood Urea Nitrogen 18 mg/dL (8-23); Calcium 8.9 mg/dL (8.5-10.5); Carbon Dioxide 26 mmol/L (22-29); Chloride 102 mmol/L (98-107); Glucose 196 mg/dL (65-115); Osmolality Calculated 291 mOsm/kg (285-295); Potassium 5.2 mmol/L (3.5-5.1); Sodium 137 mmol/L (136-145); Total Bilirubin 0.3 mg/dL (0.15-1.2); Total Protein 6.7 g/dL (6.6-8.7)
--- NOTE | 2020-05-16 07:30 | NUR.SHIFT ---
Patient had no complaints throughout the night. Patient is eager to be discharged. Patient mainly slept through the night and express no issues.
[2020-05-16] MEDS: pantoprazole 40 mg SDV IVP ×2 (07:44→18:03)
[2020-05-16] MEDS: FUROsemide 10 mg/mL SDV 2mL 20 MG IVP (07:45)
[2020-05-16] MEDS: aspirin 81 mg EC Tablet 162 MG PO (09:10)
[2020-05-16] MEDS: carvedilol 25 mg Tablet PO ×2 (09:10→17:39)
[2020-05-16] MEDS: levothyroxine 150 mcg Tablet 75 MCG PO (09:10)
[2020-05-16] MEDS: clopidogrel 75 mg Tablet PO (09:10)
[2020-05-16] MEDS: tamsulosin 0.4 mg Capsule PO (09:11)
--- NOTE | 2020-05-16 09:25 | PC.SOCIAL ---
*IMM* attempted to give patient IMM but he was not interested in listening as he stated that [facility] and [facility]. I did try informing him even if he [facility] he is still i need of getting the important message.
--- NOTE | 2020-05-16 10:14 | P.PN_ITS ---
Subjective Subjective: Interval history: Patient reports feeling much better this morning. Denies shortness of breath or chest pain. Reports that he ambulates in his room without difficulty. Potassium was elevated after spironolactone was started. 1 dose of Lasix was given this morning. Vitals/I&O/Wt Last Vital Signs Temp 98.0 F 05/16/20 04:00 Pulse 62 05/16/20 08:00 Resp 18 05/16/20 08:00 BP 136/89 05/16/20 08:00 Pulse Ox 97 05/16/20 08:00 05/15/20 05/16/20 05/16/20 22:59 06:59 14:59 Intake Total 200 / 640 240 / 240 Output Total 600 / 1850 800 / 2650 700 / 700 Balance -400 / -1210 -800 / -2010 -460 / -460 Physical Exam Const: COMMON NORMALS: no acute distress and patient oriented x3 Resp: COMMON NORMALS: normal respiratory effort and clear to auscultation bilaterally AUSCULTATION: clear to auscultation bilaterally Cardio: COMMON NORMALS: regular rate, regular rhythm and S2 normal heart sound present RATE: regular rate RHYTHM: regular rhythm HEART SOUNDS: S2 normal heart sound present OTHER: No lower extremity edema GI: COMMON NORMALS: Normal to inspection, nondistended, normoactive bowel sounds present, Soft to palpation and non-tender PALPATION: Yes Soft to palpation Neuro: COMMON NORMALS: patient oriented x3 and no focal motor deficits Data : 05/16/20 06:20 05/16/20 06:10 Micro: Microbiology 05/13/20 04:44 Blood Culture - Preliminary Blood NEGATIVE TO DATE A&P Assessment and plan (1) Pneumonia due to COVID-19 virus: Status: Acute (2) CHF (congestive heart failure): Status: Acute (3) Diabetes: Status: Acute (4) Dehydration with hyponatremia: Improved Status: Acute (5) Hypokalemia: Status: Acute (6) COPD with acute exacerbation: Appears to have some degree of COPD exacerbation. Status: Acute (7) Acute respiratory failure with hypoxia: Status: Acute Additional A&P Information PLAN: I will continue current monitoring and treatment for 1 more day and if patient continues to improve we will likely be able to dismiss him home tomorrow after last dose of remdesivir. I think patient will benefit from daily Lasix and this will be considered upon discharge. Perform home O2 evaluation and wean off oxygen as saturation permits. Attestations Medical Necessity Statement*: Patient with COVID-19 pneumonia requires close inpatient monitoring and treatment until deemed safe for discharge. Time Spent in Patient Care: 16 - 35 minutes Coding Level of Care Code Acute Cash On Delivery Clerk for g Fwd Exam Detailed Diagnoses Pneumonia due to COVID-19 virus U07.1; J12.89 CHF (congestive heart failure) I50.9 Diabetes E11.9 Dehydration with hyponatremia E86.0; E87.1 Hypokalemia E87.6 COPD with acute exacerbation J44.1 Acute respiratory failure with hypoxia J96.01
[2020-05-16] MEDS: levofloxacin-dextrose 5% 750 mg-150 mL Premix 100 MG IV (17:39)
[2020-05-16] MEDS: enoxaparin 40 mg/0.4 mL Syringe SUBCUT (20:31)
[2020-05-16] MEDS: dexamethasone 4 mg/mL INJ 6 MG IVP (21:49)
[2020-05-17] VITALS: BP 126/74; PULSE 70; RESP 17; TEMP 36.9; O2SAT 97
[2020-05-17 04:00] VITALS: BP 134/86; PULSE 70; RESP 17; TEMP 36.7; O2SAT 96
[2020-05-17 04:12] LABS: Hematocrit 38.5 % (42.0-52.0); Hemoglobin 12.1 g/dL (11.7-16.6); Lymphocytes % 15.3 %; Mean Corpuscular HGB Conc 31.4 g/dL (30.0-36.0); Mean Corpuscular Hemoglobin 28.3 pg (28.0-34.0); Mean Corpuscular Volume 90.2 fL (80-94); Mean Platelet Volume 9.6 fL (7.4-10.4); Monocytes # 0.3 10^3/uL (0.2-0.9); Neutrophils # 5.12 10^3/uL (1.8-7.7); Neutrophils % 75.6 %; Nucleated Red Blood Cells % 0 %; Platelet Count 358 10^3/cmm (130-400); Red Blood Count 4.27 10^6/uL (4.1-5.3); Red Cell Distribution Width 13.2 % (12.1-15.1); White Blood Count 6.8 10^3/uL (4.0-10.0)
[2020-05-17 04:34] LABS: Alanine Aminotransferase 20 U/L (0-41); Albumin Level 3.4 g/dL (3.5-5.2); Alkaline Phosphatase 43 IU/L (40-130); Anion Gap 13.8 (5-19); Aspartate Amino Transferase 23 U/L (0-40); Blood Urea Nitrogen 19 mg/dL (8-23); Calcium 8.6 mg/dL (8.5-10.5); Carbon Dioxide 26 mmol/L (22-29); Chloride 100 mmol/L (98-107); Globulin 3.2 g/dL (1.3-4.6); Glucose 241 mg/dL (65-115); Magnesium 1.9 mg/dL (1.7-2.3); Osmolality Calculated 292 mOsm/kg (285-295); Potassium 3.8 mmol/L (3.5-5.1); Sodium 136 mmol/L (136-145); Total Bilirubin 0.3 mg/dL (0.15-1.2); Total Protein 6.6 g/dL (6.6-8.7)
[2020-05-17] MEDS: pantoprazole 40 mg SDV IVP (06:57)
[2020-05-17 08:00] VITALS: BP 109/72; PULSE 76; RESP 18; TEMP 36.2; O2SAT 96
[2020-05-17 08:10] VITALS: PULSE 66; RESP 18; O2SAT 94
--- NOTE | 2020-05-17 08:47 | PM.DCS ---
Discharge Providers Date of Admission: 05/13/20 17:28 Date of Discharge: May 17, 2020 Attending Provider at Admission: Hussain Ybarra MD Attending Provider at Discharge: Hussain Ybarra MD Primary Care Provider: Chau Duncan Diagnoses at Discharge Discharge Diagnosis (1) Pneumonia due to COVID-19 virus: Status: Acute (2) CHF (congestive heart failure): Status: Acute Permanent problem details: Specifics unknown. Currently compensated. (3) Diabetes: Status: Acute (4) Dehydration with hyponatremia: Status: Acute Permanent problem details: Resolved (5) Hypokalemia: Status: Acute Permanent problem details: Resolved (6) COPD with acute exacerbation: Status: Acute Permanent problem details: Improved (7) Acute respiratory failure with hypoxia: Status: Acute Reason for Visit Reason for Visit: COVID+ LOW OXY LEVEL Hospital Course Hospital Course Patient presented with acute hypoxic respite failure what appears to be second incidence of COVID-19 pneumonia. Patient was started on remdesivir and steroids as well as Levaquin for potential bacterial pneumonia. Patient gradually improved and this morning reports feeling much better and wants to go home. He qualified for 3 L of oxygen. Reports that he ambulated in his room without difficulty. This morning he denies any chest pain or abdominal pain. Reports that his cough is completely gone. Plan to discharge patient later this afternoon after his last dose of remdesivir which will be given earlier. I will continue Levaquin and dexamethasone for 5 more days. I also will change patient's Lasix to daily instead of as needed as it appears that patient clinically responding to Lasix well. We will add small dose of potassium in addition to spironolactone and request lab work checked in several days prior to primary care physician follow-up. We will also change omeprazole to daily in the next 2 weeks for GI protection. Patient this morning had normal formed bowel movement without evidence of melena or hematochezia. Reports that his oral intake improved. Physical Exam Const: COMMON NORMALS: no acute distress and patient oriented x3 Resp: COMMON NORMALS: normal respiratory effort and clear to auscultation bilaterally AUSCULTATION: clear to auscultation bilaterally Cardio: COMMON NORMALS: regular rate, regular rhythm and S2 normal heart sound present RATE: regular rate RHYTHM: regular rhythm HEART SOUNDS: S2 normal heart sound present OTHER: No lower extremity edema GI: COMMON NORMALS: Normal to inspection, nondistended, normoactive bowel sounds present, Soft to palpation and non-tender PALPATION: Yes Soft to palpation Neuro: COMMON NORMALS: patient oriented x3 and no focal motor deficits Discharge Data Data Completed and Pending: Completed Studies During Hospitalization Category Date Time Status CT angio chest PE protcl [id number] Stat Cat Scan 05/13/20 15:13 Completed XR chest 1V amy ble [id number] Routine Exams 05/15/20 07:18 Completed XR chest 1V amy ble [id number] Routine Exams 05/16/20 07:00 Completed XR chest 1V amy ble [id number] Stat Exams 05/13/20 15:09 Completed Pending at discharge Category Date Time Status Blood Culture Sta t Lab 05/13/20 04:44 Results Complete Blood Co unt w/Auto AM LABS Lab 05/18/20 04:00 Ordered Complete Blood Co unt w/Auto AM LABS Lab 05/19/20 04:00 Ordered Comprehensive Met abolic Panel AM LA BS Lab 05/18/20 04:00 Ordered Comprehensive Met abolic Panel AM LA BS Lab 05/19/20 04:00 Ordered Magnesium AM LABS Lab 05/18/20 04:00 Ordered Magnesium AM LABS Lab 05/19/20 04:00 Ordered Respiratory Viral Panel PCR Routine Lab 05/14/20 13:48 Received Sputum Culture an d Gram Stain Stat Lab 05/13/20 15:09 Uncollected Labs from last 24 hours 05/17/20 05/17/20 03:54 03:54 WBC 6.8 RBC 4.27 Hgb 12.1 Hct 38.5 L MCV 90.2 MCH 28.3 MCHC 31.4 RDW 13.2 Plt Count 358 MPV 9.6 Neut % (Auto) 75.6 Lymph % (Auto) 15.3 [place] % (Auto) 5.0 Eos % (Auto) 0.0 Baso % (Auto) 0.0 Neut # (Auto) 5.12 Lymph # (Auto) 1.0 [place] # (Auto) 0.3 Eos # (Auto) 0.0 Baso # (Auto) 0.0 Nucleated RBC % (a uto) 0 Nucleated RBCs # 0.0 Sodium 136 Potassium 3.8 Chloride 100 Carbon Dioxide 26 Anion Gap 13.8 BUN 19 Creatinine 0.8 GFR Calculation Not Reportable Glucose 241 H Calculated Osmolal ity 292 Calcium 8.6 Magnesium 1.9 Total Bilirubin 0.3 AST 23 ALT 20 Alkaline Phosphata se 43 Total Protein 6.6 Albumin 3.4 L Globulin 3.2 Vitals: Last Vital Signs Temp 98.1 F 05/17/20 04:00 Pulse 66 05/17/20 08:10 Resp 18 05/17/20 08:10 BP 134/86 05/17/20 04:00 Pulse Ox 94 05/17/20 08:10 Discharge Plan Discharge Patient Disposition: Home Condition: Stable Prescriptions: New dexamethasone 6 mg tablet 6 mg PO DAILY Qty: 5 RF: 0 levofloxacin 750 mg tablet 750 mg PO DAILY 5 Days Qty: 5 RF: 0 potassium chloride [Klor-Con 10] 10 mEq tablet extended release 10 meq PO DAILY Qty: 30 RF: 0 Continued ipratropium-albuterol 0.5 mg-3 mg(2.5 mg base)/3 mL solution for nebulization 3 ml INHALATION QID PRN (Reason: unknown) RF: 0 metformin 1,000 mg tablet 500 mg PO BID RF: 0 Combivent Respimat 20-100 mcg/actuation mist 1 puff INHALATION QID PRN (Reason: unknown) RF: 0 tamsulosin 0.4 mg capsule 0.4 mg PO DAILY RF: 0 spironolactone 25 mg tablet 25 mg PO DAILY RF: 0 Fiber Smooth Powder 2 tsp PO PRN RF: 0 clopidogrel 75 mg tablet 75 mg PO DAILY RF: 0 carvedilol 25 mg tablet 25 mg PO BID RF: 0 aspirin [Adult Aspirin Regimen] 81 mg tablet,delayed release (DR/EC) 162 mg PO DAILY RF: 0 levothyroxine 75 mcg capsule 75 mcg PO DAILY RF: 0 Spiriva Respimat 2.5 mcg/actuation mist 2 inh INHALATION QAM RF: 0 artifi.tears(hypromellose)(PF) 0.3 % drops 1 drop ophthalmic (eye) BID PRN (Reason: unknown) RF: 0 ondansetron 4 mg tablet,disintegrating 4 mg PO Q6H PRN (Reason: nausea and vomiting) Qty: 12 RF: 0 Mucinex 600 mg Tablet Extended Release 12hr 600 mg PO PRN RF: 0 methocarbamol 750 mg Tablet 750 - 1,500 mg PO TID PRN (Reason: Muscle Spasm) RF: 0 mupirocin 2 % Ointment 1 applic TOPICAL BID PRN (Reason: unknown) RF: 0 cholecalciferol (vitamin D3) [Vitamin D3] 10 mcg (400 unit) Tablet 800 unit PO PRN RF: 0 budesonide-formoterol 160-4.5 mcg/actuation Hfa Aerosol Inhaler 2 puff INHALATION BID RF: 0 nitroglycerin [Nitrostat] 0.4 mg Tablet, Sublingual 0.4 mg SUBLINGUAL Q5M PRN (Reason: Chest Pain) RF: 0 Changed furosemide 20 mg tablet 20 mg PO DAILY Qty: 30 RF: 0 omeprazole 20 mg Capsule,Delayed Release(Dr/Ec) 20 mg PO DAILY Qty: 14 RF: 0 Discontinued prednisone 20 mg tablet 20 mg PO DAILY 5 Days Qty: 5 RF: 0 doxycycline hyclate 100 mg tablet 100 mg PO BID 7 Days Qty: 14 RF: 0 Zantac 150 mg Tablet 150 mg PO PRN RF: 0 Robitussin-DM See Rx Instructions .ROUTE .COMPLEX RF: 0 Discharge Orders: Discharge Order (Routine); Ordered 05/17/20 Ordered By: Hussain Ybarra Other Ambulatory Orders: Comprehensive Metabolic Panel (Routine) Timeframe: 20200521 Facility: [facility] - Location: Lab - Main Lab Ordered By: Hussain Ybarra DME: Oxygen (Order) Location: None Selected Ordered By: Hussain Ybarra Referrals: Chau Duncan [Primary Care Provider] - 4-7 days Discharge Diet: Advance as tolerated Discharge Activity: Increase activity as tolerated Activity Restrictions/Additional Instructions: Please call your doctor or present to emergency department if your condition worsens or you develop diarrhea, lightheadedness, fatigue or see blood in your stool or black stool. Please note that I want you to take Lasix along with potassium and spironolactone daily. You will need to have repeat lab work in several days to make sure your electrolytes within normal limits. I also would like to continue your omeprazole on daily basis for the next 2 weeks as you have been treated with steroids. Discharge Attestations Time Spent in Discharge Care*: greater than 30 min Quality Metrics Clinical Quality Measures During this hospital stay, did patient experience: None Coding Level of Care Code Acute Student Services Representative for g Fwd Diagnoses Pneumonia due to COVID-19 virus U07.1; J12.89 CHF (congestive heart failure) I50.9 Diabetes E11.9 Dehydration with hyponatremia E86.0; E87.1 Hypokalemia E87.6 COPD with acute exacerbation J44.1 Acute respiratory failure with hypoxia J96.01
[2020-05-17] MEDS: carvedilol 25 mg Tablet PO (10:31)
[2020-05-17] MEDS: levothyroxine 150 mcg Tablet 75 MCG PO (10:32)
[2020-05-17] MEDS: aspirin 81 mg EC Tablet 162 MG PO (10:32)
[2020-05-17] MEDS: tamsulosin 0.4 mg Capsule PO (10:32)
[2020-05-17] MEDS: clopidogrel 75 mg Tablet PO (10:32)
[2020-05-17 12:14] VITALS: BP 128/74; PULSE 66; RESP 18; TEMP 36.6; O2SAT 94
--- NOTE | 2020-05-18 09:51 | PC.SOCIAL ---
Spoke with the patient on the phone about the discharge information they received spoke about signs and symptoms to watch for such as; blue lips or face, fever of 104 or higher, trouble breathing or catching breath, chest pain lasting longer than 5 minute, confusion or trouble waking up. We also spoke about ways to improve the immune system, these included; eating and drinking well, eating fruits and vegetables, lean meat, low fat dairy products, keeping up with immunizations such as flu/pneumonia/shingles shots, going to all appointments and follow ups, lessening and stress. We also spoke about ways to stop or prevent the spread of the COVID 19. These included; social distancing at all times, washing hands longer than 20 seconds with a good lather, sanitizing surfaces in home and in vehicle, masking up when possible and washing any cloth masks after use and allow them to dry completely before next use, sneezing or coughing into arm, restricting company or going out in public. We spoke a little about the benefits of plasma donation. They would like information on this. I will send info in mail. The mentioned that the patient is now seeing Dr. Busch now inplace of Dr. Hardy that retired. She stated that she will set that appointment up. She did say that she had some questions about the medication at [place] but was able to contact the nurse station and they helped her to figure out the medications.
[2020-05-18 11:13] LABS: Adenovirus Not Detected (Not Detected); Human Metapneumovirus Not Detected (Not Detected); Human Parainflu Virus 1 Not Detected (Not Detected); Human Parainflu Virus 2 Not Detected (Not Detected); Human Parainflu Virus 3 Not Detected (Not Detected); Human Rsv A Not Detected (Not Detected); Influenza A Not Detected (Not Detected); Influenza B Not Detected (Not Detected); Rhinovirus/Enterovirus Not Detected (Not Detected)
== END 2020-05-17 11:50 | disposition home or self-care (01) | DRG 177 ==
LOC: ER 15:33 → MEDSURG 18:06
PROVIDERS: Internal Medicine; Admitting Provider Internal Medicine; Emergency Provider Family Medicine; PCP Family Medicine; Visit Provider Internal Medicine
DX: U07.1 COVID-19 (principal); J12.89 Other viral pneumonia; J96.01 Acute respiratory failure with hypoxia; J44.0 Chronic obstructive pulmonary disease with (acute) lower respiratory infection; J44.1 Chronic obstructive pulmonary disease with (acute) exacerbation; E87.1 Hypo-osmolality and hyponatremia; I25.10 Atherosclerotic heart disease of native coronary artery without angina pectoris; Z95.5 Presence of coronary angioplasty implant and graft; Z95.1 Presence of aortocoronary bypass graft; Z79.51 Long term (current) use of inhaled steroids; Z87.891 Personal history of nicotine dependence; N40.1 Benign prostatic hyperplasia with lower urinary tract symptoms; E11.9 Type 2 diabetes mellitus without complications; E78.5 Hyperlipidemia, unspecified; I11.0 Hypertensive heart disease with heart failure; I50.9 Heart failure, unspecified; E86.0 Dehydration; E87.6 Hypokalemia; Z79.84 Long term (current) use of oral hypoglycemic drugs; Z79.02 Long term (current) use of antithrombotics/antiplatelets
CPT/HCPCS: 12345; 36415; 36600; 71045; 71275; 80053; 82728; 82803; 83605; 83615; 83735; 83880; 84145; 85025; 85378; 85384; 86140; 87040; 93005; 94640; 96372; 96375; 97110; 97161; 99282; C9113; J1100; J1650; J1940; J1956; J3535; Q9967

== ENCOUNTER 2022-01-16 06:09 | Emergency (ER) | payer OTHER, MEDICARE, SELFPAY ==
[2022-01-16 06:16] VITALS: PULSE 93; RESP 18; TEMP 36.6; O2SAT 95; BMI 36.9
--- NOTE | 2022-01-16 06:28 | CTR_ITS ---
PROCEDURE INFORMATION: Exam: CT Abdomen And Pelvis With Contrast Exam date and time: 01/16/2022 8:47 AM Age: 76 years old Clinical indication: Abdominal pain; Localized; Other: RT flank and left lower pain; Prior surgery; Surgery type: Stents, hernia; Additional info: Llq qbd pain TECHNIQUE: Imaging protocol: Computed tomography of the abdomen and pelvis with contrast. Radiation optimization: All CT scans at this facility use at least one of these dose optimization techniques: automated exposure control; mA and/or kV adjustment per patient size (includes targeted exams where dose is matched to clinical indication); or iterative reconstruction. Contrast material: OMNI 350; Contrast volume: 95 ml; Contrast route: INTRAVENOUS (IV); COMPARISON: CT angio chest PE protcl [id number] 05/13/2020 4:49 PM RADIATION DOSE METRICS: Total DLP (mGy-cm): 1293.93 FINDINGS: Lungs: Right lower lobe calcified pulmonary parenchymal granulomas. Liver: Normal. No mass. Gallbladder and bile ducts: Normal. No calcified stones. No ductal dilation. Pancreas: Severe pancreatic atrophy. No ductal dilatation or mass. Spleen: Normal. No splenomegaly. Adrenal glands: 12.5 x 9.3 x 12.9 mm left adrenal nodule. Kidneys and ureters: Left renal benign cysts, largest 4.4 cm. Stomach and bowel: Sigmoid and distal descending colonic diverticula are present without evidence of diverticulitis. There is mildly increased stool noted in the ascending colon. No evidence of bowel obstruction. Appendix: The vermiform appendix is normal. Intraperitoneal space: No free air. No significant fluid collection. Vasculature: Moderate aortic atherosclerotic calcification without aneurysm. The iliac arteries show moderate bilateral atherosclerotic calcifications without evidence of aneurysm. Lymph nodes: Right internal iliac lymph node measuring 5.4 mm short axis. Urinary bladder: Right lateral urinary bladder diverticulum, measuring 1.8 cm. Reproductive: The prostate gland is markedly enlarged measuring 7.7 x 6.8 x 6.7 cm, with nonspecific parenchymal calcifications. Median lobe hypertrophy protrudes into the urinary bladder lumen. Bones/joints: Superior posterior left iliac bone probable benign bone island measuring 4.7 mm. Anterior bridging bilateral sacroiliac joint marginal osteophytes. Lumbar spine vertebral body marginal osteophytes are noted at multiple levels. Soft tissues: An incompletely imaged left inguinal hernia is present, measuring at least 8.6 x 3.8 x 2.2 cm containing sigmoid colon without obstruction/strangulation/gangrene. CT/CT abdomen pelvis w con* [id number] IMPRESSION: 1. Left adrenal nodule, stable. 2. Right lateral urinary bladder diverticulum. 3. Left renal benign cysts. No follow-up imaging is recommended. 4. Diverticulosis. 5. Left inguinal hernia. 6. Marked prostatic hypertrophy with chronic calcific prostatitis. Correlation with PSA recommended. 7. Mild right abdominal colonic constipation. COMMENTS: Consistent with the [employer]'s Incidental Findings Committee white paper (J Am Maynor Radiol 2018): Any incidental renal lesion less than 1 cm or classified as too small to characterize, or any incidental cystic renal lesion characterized as simple-appearing, is likely benign. No follow-up imaging is recommended for these lesions per consensus recommendations based on imaging criteria.
--- NOTE | 2022-01-16 06:29 | ED_ITS ---
HPI - Abdominal Pain General: Chief Complaint: Abdominal Pain Stated Complaint: back and abd pain Time Seen by Provider: 01/16/22 06:22 History of Present Illness: Pt comes in with abd pain. States that it is right sided, started about a month ago, constant, dull ache with periodic sharp pains. states that it has migrated to the LLQ. Associated with nausea. No vomiting or diarrhea. Associated Symptoms: Reports nausea; Denies dysuria, fever(s) and vomiting Review of Systems Const: Denies: fever(s) or body aches Eyes: Denies: change in vision or blurry vision ENMT: Denies: throat pain or odynophagia Card: Denies: chest pain or palpitations Resp: Denies: dyspnea or productive cough GI: Reports: abdominal pain and nausea; Denies: vomiting : Denies: flank pain or dysuria Musc: Denies: neck pain or back pain Skin/Breast: Denies: rash or pruritus Neuro: Denies: headache(s) or numbness in extremities Psych: Denies: anxiety or change in appetite Endo: Denies: polyuria or excessive sweating PFSH ED PFSH: Medical History (Updated 01/16/22 @ 09:35 by Musa Villasenor MD) BPH loc w urin obs/LUTS CHF (congestive heart failure) Specifics unknown. Currently compensated. COPD (chronic obstructive pulmonary disease) Diabetes Elevated PSA Erectile dysfunction Hyperlipidemia Hypertension Surgical History History of thyroid surgery S/P angioplasties S/P CABG (coronary artery bypass graft) S/P tonsillectomy Stented coronary artery Family History Mother , 70's No problems noted. Father , 73 No problems noted. Social History Smoking and tobacco status: former smoker Alcohol intake: never Marital status: service: Yes Current occupational status: retired History of recent travel: No Physical Exam Const: COMMON NORMALS: no acute distress, patient oriented x3, healthy appearing and alert HENMT: COMMON NORMALS: normocephalic and atraumatic HEAD & SCALP: normocephalic and atraumatic Eye: COMMON NORMALS: Equal, round and reactive pupils present and EOMs intact bilaterally PUPIL: Yes Equal, round and reactive pupils present Neck/C-Spine: COMMON NORMALS: full ROM and supple Resp: COMMON NORMALS: normal respiratory effort, No retractions and No use of accessory muscles Cardio: COMMON NORMALS: regular rate and regular rhythm RATE: regular rate RHYTHM: regular rhythm GI: COMMON NORMALS: Normal to inspection, nondistended, normoactive bowel sounds present and Soft to palpation PALPATION: Yes Soft to palpation OTHER: LLQ tenderness to palpation Back/Pelvis: COMMON NORMALS: thoracic and lumbar spine normal to inspection and no thoracic nor lumbar tenderness Extremity: COMMON NORMALS: normal to inspection and full ROM Neuro: COMMON NORMALS: patient oriented x3 SENSORIUM/ORIENTATION: Yes alert Psych: COMMON NORMALS: mental status grossly normal and cooperative Skin: COMMON NORMALS: no rashes or lesions noted and no wounds GENERAL SKIN EXAM: no rashes or lesions noted Course Vital Signs: Vital signs: Vital Signs Temperature 97.8 F 01/16/22 06:16 Pulse Rate 98 01/16/22 08:04 Respiratory Rate 20 H 01/16/22 08:04 Blood Pressure 125/80 01/16/22 08:04 Pulse Oximetry 94 01/16/22 08:04 MDM - Abdominal Pain Medical Decision Making Pt comes in with abd pain. States that it is right sided, started about a month ago, constant, dull ache with periodic sharp pains. states that it has migrated to the LLQ. Associated with nausea. No vomiting or diarrhea. On PE he has mild ttp in the LLQ. Will check labs, CT scan, and reassess. On reassessment I talked to the patient about the test results. He [facility]. Will discharge home at this time with precautions return for worsening or changing symptoms. Lab Data : 01/16/22 06:23 01/16/22 06:23 Labs/Radiology: Radiology Impressions Abdomen/Pelvis CT 01/16/22 06:28 IMPRESSION: 1. Left adrenal nodule, stable. 2. Right lateral urinary bladder diverticulum. 3. Left renal benign cysts. No follow-up imaging is recommended. 4. Diverticulosis. 5. Left inguinal hernia. 6. Marked prostatic hypertrophy with chronic calcific prostatitis. Correlation with PSA recommended. 7. Mild right abdominal colonic constipation. COMMENTS: Consistent with the [employer]'s Incidental Findings Committee white paper (J Am Maynor Radiol 2018): Any incidental renal lesion less than 1 cm or classified as too small to characterize, or any incidental cystic renal lesion characterized as simple-appearing, is likely benign. No follow-up imaging is recommended for these lesions per consensus recommendations based on imaging criteria. Laboratory Results WBC 20.6 10^3/uL (4.0-10.0) H 01/16/22 06:23 RBC 4.99 10^6/uL (4.1-5.3) 01/16/22 06:23 Hgb 14.8 g/dL (11.7-16.6) 01/16/22 06:23 Hct 45.4 % (42.0-52.0) 01/16/22 06:23 MCV 91.0 fl (80-94) 01/16/22 06:23 MCH 29.7 pg (28.0-34.0) 01/16/22 06:23 MCHC 32.6 g/dL (30.0-36.0) 01/16/22 06:23 RDW 13.0 % (12.1-15.1) 01/16/22 06:23 Plt Count 221 10^3/cmm (130-400) 01/16/22 06:23 MPV 10.3 fL (7.4-10.4) 01/16/22 06:23 Neut % (Auto) 80.4 % 01/16/22 06:23 Lymph % (Auto) 7.5 % 01/16/22 06:23 [place] % (Auto) 11.1 % 01/16/22 06:23 Eos % (Auto) 0.2 % 01/16/22 06:23 Baso % (Auto) 0.2 % 01/16/22 06:23 Neut # (Auto) 16.50 10^3/uL (1.8-7.7) H 01/16/22 06:23 Lymph # (Auto) 1.6 10^3/uL (0.8-4.8) 01/16/22 06:23 [place] # (Auto) 2.3 10^3/uL (0.2-0.9) H 01/16/22 06:23 Eos # (Auto) 0.1 10^3/uL (0.0-0.8) 01/16/22 06:23 Baso # (Auto) 0.0 10^3/uL (0.0-0.1) 01/16/22 06:23 Nucleated RBC % (auto) 0 % 01/16/22 06:23 Nucleated RBCs # 0.0 /100WBC 01/16/22 06:23 Sodium 135 mmol/L (136-145) L 01/16/22 06:23 Potassium 4.5 mmol/L (3.5-5.1) 01/16/22 06:23 Chloride 99 mmol/L (98-107) 01/16/22 06:23 Carbon Dioxide 21 mmol/L (22-29) L 01/16/22 06:23 Anion Gap 19.5 (5-19) H 01/16/22 06:23 BUN 15 mg/dL (8-23) 01/16/22 06:23 Creatinine 1.0 mg/dL (0.7-1.2) 01/16/22 06:23 GFR Calculation Not Reportable 01/16/22 06:23 Glucose 142 mg/dL (65-115) H 01/16/22 06:23 Calculated Osmolality 283 mOsm/kg (285-295) L 01/16/22 06:23 Calcium 9.3 mg/dL (8.5-10.5) 01/16/22 06:23 Total Bilirubin 0.6 mg/dL (0.15-1.2) 01/16/22 06:23 AST 20 U/L (0-40) 01/16/22 06:23 ALT 17 U/L (0-41) 01/16/22 06:23 Alkaline Phosphatase 66 IU/L (40-130) 01/16/22 06:23 Total Protein 7.9 g/dL (6.6-8.7) 01/16/22 06:23 Albumin 4.6 g/dL (3.5-5.2) 01/16/22 06:23 Globulin 3.3 g/dL (1.3-4.6) 01/16/22 06:23 Lipase 10 U/L (13-60) L 01/16/22 06:23 Discharge Plan Discharge Patient Disposition: Home Clinical Impression: Inguinal hernia of left side without obstruction or gangrene Condition: Stable Prescriptions: No Action ipratropium-albuterol 0.5 mg-3 mg(2.5 mg base)/3 mL solution for nebulization 3 ml INHALATION QID PRN (Reason: unknown) 0RF Rx Instructions: pts orion states the pt has been using once or twice a day metformin 1,000 mg tablet 500 mg PO BID 0RF Rx Instructions: pts orion states the pt takes this medication Combivent Respimat 20-100 mcg/actuation mist 1 puff INHALATION QID PRN (Reason: unknown) 0RF tamsulosin 0.4 mg capsule 0.4 mg PO DAILY 0RF Rx Instructions: PTS ORION STATES THE PT TAKES THIS MEDICATION spironolactone 25 mg tablet 25 mg PO DAILY 0RF Rx Instructions: PTS ORION STATES THE PT TAKES THIS MEDICATION Fiber Smooth Powder 2 tsp PO PRN 0RF clopidogrel 75 mg tablet 75 mg PO DAILY 0RF Rx Instructions: pts orion states the pt takes this medication carvedilol 25 mg tablet 25 mg PO BID 0RF Rx Instructions: pts orion states the pt takes this medication aspirin [Adult Aspirin Regimen] 81 mg tablet,delayed release (DR/EC) 162 mg PO DAILY 0RF Rx Instructions: pts orion states the pt takes this medication levothyroxine 75 mcg capsule 75 mcg PO DAILY 0RF Rx Instructions: pts states this medication makes the pt sick so the pt IS NOT taking this medication-pts states this [facility] Spiriva Respimat 2.5 mcg/actuation mist 2 inh INHALATION QAM 0RF artifi.tears(hypromellose)(PF) 0.3 % drops 1 drop ophthalmic (eye) BID PRN (Reason: unknown) 0RF Rx Instructions: pts orion states the pt uses prn ondansetron 4 mg tablet,disintegrating 4 mg PO Q6H PRN (Reason: nausea and vomiting) Qty: 12 0RF Rx Instructions: pts states the pt has this medication but is not taking Mucinex 600 mg Tablet Extended Release 12hr 600 mg PO PRN 0RF Rx Instructions: PTS ORION STATES THE PT HASNT TAKEN FOR 2-3 DAYS dexamethasone 6 mg tablet 6 mg PO DAILY Qty: 5 0RF omeprazole 20 mg Capsule,Delayed Release(Dr/Ec) 20 mg PO DAILY Qty: 14 0RF Rx Instructions: pts states pt takes only prn furosemide 20 mg tablet 20 mg PO DAILY Qty: 30 0RF Rx Instructions: pts orion states the pt takes prn Klor-Con 10 10 mEq tablet extended release 10 meq PO DAILY Qty: 30 0RF methocarbamol 750 mg Tablet 750 - 1,500 mg PO TID PRN (Reason: Muscle Spasm) 0RF Rx Instructions: pt states the pt doesnt take often mupirocin 2 % Ointment 1 applic TOPICAL BID PRN (Reason: unknown) 0RF Rx Instructions: pts states the pt just uses prn cholecalciferol (vitamin D3) [Vitamin D3] 10 mcg (400 unit) Tablet 800 unit PO PRN 0RF Rx Instructions: PTS STATES THE PT TAKES PRN budesonide-formoterol 160-4.5 mcg/actuation Hfa Aerosol Inhaler 2 puff INHALATION BID 0RF Rx Instructions: pts orion states pt takes this medication nitroglycerin [Nitrostat] 0.4 mg Tablet, Sublingual 0.4 mg SUBLINGUAL Q5M PRN (Reason: Chest Pain) 0RF Discharge Orders: Discharge ED (Routine); Ordered 01/16/22 Ordered By: Musa Villasenor Referrals: Chau Duncan [Primary Care Provider] - Coding Level of Care Code ED Labor Training Manager for Chg Fwd Exam Comprehensive
[2022-01-16 07:00] VITALS: BP 126/86; PULSE 97; RESP 15; O2SAT 93
[2022-01-16 07:57] LABS: Basophils % 0.2 %; Eosinophils # 0.1 10^3/uL (0.0-0.8); Eosinophils % 0.2 %; Hematocrit 45.4 % (42.0-52.0); Hemoglobin 14.8 g/dL (11.7-16.6); Lymphocytes # 1.6 10^3/uL (0.8-4.8); Lymphocytes % 7.5 %; Mean Corpuscular HGB Conc 32.6 g/dL (30.0-36.0); Mean Corpuscular Hemoglobin 29.7 pg (28.0-34.0); Mean Platelet Volume 10.3 fL (7.4-10.4); Monocytes # 2.3 10^3/uL (0.2-0.9); Monocytes % 11.1 %; Neutrophils % 80.4 %; Nucleated Red Blood Cells % 0 %; Platelet Count 221 10^3/cmm (130-400); Red Blood Count 4.99 10^6/uL (4.1-5.3); White Blood Count 20.6 10^3/uL (4.0-10.0)
[2022-01-16 08:04] VITALS: BP 125/80; PULSE 98; RESP 20; O2SAT 94
--- NOTE | 2022-01-16 08:05 | PC.NURSE ---
PATIENT STATES THAT HIS LUNGS WERE STARTING TO HURT. PATIENT O2 SAT AT89%. PATIENT STATES THAT HE USES ROUTINE INHALER EVERY MORNING. THIS NURSE ASKED PROVIDER IF IT WAS OK TO ADMINISTER. PROVIDER VERBALIZED YES. PATIENT O2 SAT AFTER ADMINISTRATION 94%. NO FURTHER NEEDS.
[2022-01-16 08:11] LABS: Alanine Aminotransferase 17 U/L (0-41); Albumin Level 4.6 g/dL (3.5-5.2); Alkaline Phosphatase 66 IU/L (40-130); Anion Gap 19.5 (5-19); Aspartate Amino Transferase 20 U/L (0-40); Blood Urea Nitrogen 15 mg/dL (8-23); Calcium 9.3 mg/dL (8.5-10.5); Carbon Dioxide 21 mmol/L (22-29); Chloride 99 mmol/L (98-107); Globulin 3.3 g/dL (1.3-4.6); Glucose 142 mg/dL (65-115); Lipase 10 U/L (13-60); Osmolality Calculated 283 mOsm/kg (285-295); Potassium 4.5 mmol/L (3.5-5.1); Sodium 135 mmol/L (136-145); Total Bilirubin 0.6 mg/dL (0.15-1.2); Total Protein 7.9 g/dL (6.6-8.7)
[2022-01-16] MEDS: iohexol 350 mg/mL 100 mL Btl IV (08:54)
[2022-01-16 09:37] VITALS: BP 125/80; PULSE 94; RESP 17; O2SAT 94
[2022-01-16 09:43] VITALS: BP 125/80; PULSE 94; RESP 17; O2SAT 94
== END 2022-01-16 09:41 | disposition home or self-care (01) ==
PROVIDERS: Emergency Provider Emergency Medicine; PCP Family Medicine
DX: K40.90 Unilateral inguinal hernia, without obstruction or gangrene, not specified as recurrent (principal); Z79.02 Long term (current) use of antithrombotics/antiplatelets; Z79.82 Long term (current) use of aspirin; I11.0 Hypertensive heart disease with heart failure; I50.9 Heart failure, unspecified; J44.9 Chronic obstructive pulmonary disease, unspecified; E11.9 Type 2 diabetes mellitus without complications; E78.5 Hyperlipidemia, unspecified; Z95.1 Presence of aortocoronary bypass graft; Z87.891 Personal history of nicotine dependence
CPT/HCPCS: 74177; 80053; 83690; 85025; 99284; Q9967

== ENCOUNTER → 2022-01-24 09:44 | Outpatient (BNVA) | payer OTHER, SELFPAY | PROVIDERS: PCP Family Medicine; Visit Provider Surgery | DX: K40.90 Unilateral inguinal hernia, without obstruction or gangrene, not specified as recurrent (principal) | CPT/HCPCS: 99204 ==

== ENCOUNTER → 2022-01-28 08:32 | Day surgery (SDC) | payer OTHER, SELFPAY ==
[2022-01-27 12:36] VITALS: BMI 36.9
[2022-01-28] VITALS (16 sets, daily range): BP systolic 131–162; BP diastolic 74–117; PULSE 66–78; RESP 16–18; TEMP 36.4–36.6; O2SAT 89–97
--- NOTE | 2022-01-28 08:33 | ANES.PREANE2 ---
Pre-Anesthetic Assessment Height/Weight: Height 1.75 m Weight 113.398 kg Preop Diagnosis: Inguinal hernia Operation Date: 01/28/22 10:15 Proposed Procedures p lap poss open left inguinal hernia repair 54969,K40.90(Left) - Luis Chua MD Familial anesthetic complications: none Was Beta Arya taken within 24 hours: Yes Was Clonidine taken within 24 hours: N/A Social No alcohol and No tobacco Exam alert, oriented x 3, clear to auscultation bilaterally and regular rate & rhythm Airway Submandibular: within normal limits Cervical ROM: within normal limits Mallampati: Class II Dentition: false Pulmonary Chronic Obstructive Pulmonary Disease, Exertional Dyspnea, Sleep Apnea (Uses CPAP some of the time) and Shortness of Breath Does not use home O2, however at one time was offered it and patient declined CV/HEM Coronary Artery Disease, Congestive Heart Failure and Hypertension S/P CA stents, S/P CABG able to ascend flight of stairs w/o SOB but no CP BPH Hepatic None reported GI Gastroesophageal Reflux Disease (Well controlled ) Metabolic Diabetes Mellitus and Thyroid Disease (s/p resection) Musc/skel Osteoarthritis/DJD Inguinal hernia Neuropsych Transient Ischemic Attack Anesthetic Plan ASA status: 3 (76 year old male w/ hx of CAD s/p stents/CABG, HTN, COPD, KARY, GERD, hypothyrodism with inguinal hernia ) Anesthesia: Anesthesia Evaluation and General Other: We discussed risk and benefits of general anesthesia including PONV, sore throat (sometimes severe), corneal abrasion, positioning and peripheral nerve injuries, life threatening allergic reaction, post operative ICU admission requiring prolonged intubation, aspiration, stroke, heart attack, , and rare incidences of recall. Patient consents to proceed with general anesthesia. Risk of > 500 ml blood loss (7ml/kg in children): No Medications/Allergies Home Medications Medication Instructions Recorded Confirmed Last Taken Type artifi.tears(hypromellose)(PF) 0.3 1 drop ophthalmic (eye) BID PRN 10/24/19 01/28/22 1 Month Ago History % eye drops unknown ~12/28/21 aspirin 81 mg tablet,delayed 162 mg PO DAILY 10/24/19 01/28/22 01/27/22 History release (Adult Aspirin Regimen) carvedilol 25 mg tablet 25 mg PO BID 10/24/19 01/28/22 01/28/22 History clopidogrel 75 mg tablet 75 mg PO DAILY 10/24/19 01/28/22 01/24/22 History ipratropium 0.5 mg-albuterol 3 mg 3 ml inhalation QID PRN unknown 10/24/19 01/28/22 3 Weeks Ago History (2.5 mg base)/3 mL nebulization ~01/07/22 soln ipratropium 20 mcg-albuterol 100 1 puff inhalation QID PRN unknown 10/24/19 01/28/22 01/28/22 History mcg/actuation mist for inhalation (Combivent Respimat) levothyroxine 75 mcg capsule 75 mcg PO DAILY 10/24/19 01/28/22 1 Month Ago History ~12/28/21 metformin 1,000 mg tablet 500 mg PO BID 10/24/19 01/28/22 01/27/22 History spironolactone 25 mg tablet 25 mg PO DAILY 10/24/19 01/28/22 01/27/22 History tamsulosin 0.4 mg capsule 0.4 mg PO DAILY 10/24/19 01/28/22 01/27/22 History tiotropium bromide 2.5 2 inh inhalation QAM 10/24/19 01/28/22 01/28/22 History mcg/actuation mist for inhalation (Spiriva Respimat) budesonide-formoterol HFA 160 2 puff inhalation BID 02/12/20 01/28/22 01/28/22 History mcg-4.5 mcg/actuation aerosol inhaler cholecalciferol (vitamin D3) 10 800 unit PO PRN 02/12/20 01/28/22 01/27/22 History mcg (400 unit) tablet (Vitamin D3) methocarbamol 750 mg tablet 750 - 1,500 mg PO TID PRN Muscle 02/12/20 01/28/22 1 Week Ago History Spasm ~01/21/22 mupirocin 2 % topical ointment 1 applic topical BID PRN unknown 02/12/20 01/28/22 1 Week Ago History ~01/21/22 nitroglycerin 0.4 mg sublingual 0.4 mg sublingual Q5M PRN Chest 02/12/20 01/28/22 Unknown History tablet (Nitrostat) Pain guaifenesin 600 mg tablet, 600 mg PO PRN 05/13/20 01/28/22 3 Weeks Ago History extended release 12 hr (Mucinex) ~01/07/22 furosemide 20 mg tablet 20 mg PO DAILY #30 tabs 05/17/20 01/28/22 1 Week Ago Rx ~01/21/22 potassium chloride 10 mEq 10 meq PO DAILY #30 tabs 05/17/20 01/28/22 2 Weeks Ago Rx tablet,extended release (Klor-Con) ~01/14/22 hydrocodone 5 mg-acetaminophen 325 1 tab PO Q6H PRN pain #20 tabs 01/28/22 Unknown Rx mg tablet Allergies Allergy/AdvReac Type Severity Reaction Status Date / Time atorvastatin [From Lipitor] Allergy muslce Verified 01/28/22 09:32 weakness PFSH Anesthesia Medical History BPH loc w urin obs/LUTS CHF (congestive heart failure) Specifics unknown. Currently compensated. COPD (chronic obstructive pulmonary disease) COVID-19 Left lower lobe community-acquired pneumonia. Secondary bacterial pneumonia cannot be completely ruled out Diabetes Elevated PSA Erectile dysfunction Hyperlipidemia Hypertension Surgical History (Updated 01/28/22 @ 09:53 by Luis Chua MD) History of thyroid surgery History of umbilical hernia repair S/P angioplasties S/P CABG (coronary artery bypass graft) S/P tonsillectomy Status post left inguinal hernia repair (01/28/22) Stented coronary artery Family History Mother , 70's No problems noted. Father , 73 No problems noted. Social History Smoking and tobacco status: former smoker Alcohol intake: never Marital status: service: Yes Current occupational status: retired History of recent travel: No Data Anesthesia Cardiac Studies: No Data to Display
--- NOTE | 2022-01-28 09:23 | W.PM.OPSFHP ---
Same Day Surgery H&P Indication for Procedure/HPI DATE OF PROCEDURE: January 28, 2022 CHIEF COMPLAINT/INDICATIONFOR SURGICAL PROCEDURE: Left inguinal hernia repair PREOP DIAGNOSIS: inguinal hernia PLANNED PROCEDURE: Operation Date: 01/28/22 10:15 Proposed Procedures p lap poss open left inguinal hernia repair 47692,K40.90(Left) - Luis Chua MD Medications/Allergies* Home Medications Medication Instructions Recorded Confirmed Type artifi.tears(hypromellose)(PF) 0.3 1 drop ophthalmic (eye) BID PRN 10/24/19 01/27/22 History % eye drops unknown aspirin 81 mg tablet,delayed 162 mg PO DAILY 10/24/19 01/27/22 History release (Adult Aspirin Regimen) carvedilol 25 mg tablet 25 mg PO BID 10/24/19 01/27/22 History clopidogrel 75 mg tablet 75 mg PO DAILY 10/24/19 01/27/22 History ipratropium 0.5 mg-albuterol 3 mg 3 ml inhalation QID PRN unknown 10/24/19 01/27/22 History (2.5 mg base)/3 mL nebulization soln ipratropium 20 mcg-albuterol 100 1 puff inhalation QID PRN unknown 10/24/19 01/27/22 History mcg/actuation mist for inhalation (Combivent Respimat) levothyroxine 75 mcg capsule 75 mcg PO DAILY 10/24/19 01/27/22 History metformin 1,000 mg tablet 500 mg PO BID 10/24/19 01/27/22 History psyllium (Fiber Smooth) 2 tsp PO PRN 10/24/19 01/27/22 History spironolactone 25 mg tablet 25 mg PO DAILY 10/24/19 01/27/22 History tamsulosin 0.4 mg capsule 0.4 mg PO DAILY 10/24/19 01/27/22 History tiotropium bromide 2.5 2 inh inhalation QAM 10/24/19 01/27/22 History mcg/actuation mist for inhalation (Spiriva Respimat) budesonide-formoterol HFA 160 2 puff inhalation BID 02/12/20 01/27/22 History mcg-4.5 mcg/actuation aerosol inhaler cholecalciferol (vitamin D3) 10 800 unit PO PRN 02/12/20 01/27/22 History mcg (400 unit) tablet (Vitamin D3) methocarbamol 750 mg tablet 750 - 1,500 mg PO TID PRN Muscle 02/12/20 01/27/22 History Spasm mupirocin 2 % topical ointment 1 applic topical BID PRN unknown 02/12/20 01/27/22 History nitroglycerin 0.4 mg sublingual 0.4 mg sublingual Q5M PRN Chest 02/12/20 01/27/22 History tablet (Nitrostat) Pain guaifenesin 600 mg tablet, 600 mg PO PRN 05/13/20 01/27/22 History extended release 12 hr (Mucinex) Allergies/Adverse Reactions Allergy/AdvReac Type Severity Reaction Status Date / Time atorvastatin [From Lipitor] Allergy muslce Verified 01/24/22 09:53 weakness Pertinent History/Comorbid Conditions* Medical History (Updated 01/24/22 @ 10:14 by Luis Chua MD) BPH loc w urin obs/LUTS CHF (congestive heart failure) Specifics unknown. Currently compensated. COPD (chronic obstructive pulmonary disease) COVID-19 Left lower lobe community-acquired pneumonia. Secondary bacterial pneumonia cannot be completely ruled out Diabetes Elevated PSA Erectile dysfunction Hyperlipidemia Hypertension Surgical History (Updated 01/24/22 @ 14:19 by Luis Chua MD) History of thyroid surgery History of umbilical hernia repair S/P angioplasties S/P CABG (coronary artery bypass graft) S/P tonsillectomy Stented coronary artery Family History Father, 73 Mother, 70's Social History Smoking and tobacco status: former smoker Alcohol intake: never Marital status: service: Yes Current occupational status: retired History of recent travel: No Pertinent Exam Findings alert, oriented x 3 and regular rate & rhythm Recommendations Surgery/Procedure today Coding Level of Care Code Acute Copy And Print Associate for Adonay Hernandez
[2022-01-28 09:59] LABS: Glucose Point of Care 121 mg/dL (70-110)
[2022-01-28] MEDS: sodium chloride 0.9% 1,000 ML 30 ML IV (09:59)
--- NOTE | 2022-01-28 10:24 | ECG_ITS ---
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 Measurements Intervals [place] Rate: 69 P: 68 OR: 194 QRS: -63 QRSD: 125 T: -2 QT: 403 QTc: 432 Interpretive Statements SINUS RHYTHM LEFT ANTERIOR FASCICULAR BLOCK [QRS AXIS <= -45, QR IN I, RS IN II] Compared to ECG 05/13/2020 17:32:24 Left anterior fascicular block now present Short OR interval no longer present Electronically Signed On 01-28-2022 12:50:37 CDT by Nirmala Harper M.D. [id number]
[2022-01-28] MEDS: ceFAZolin 2,000 MG in sodium chloride 0.9% (plus) 50 ML 100 MG IV (12:00)
--- NOTE | 2022-01-28 12:04 | P.OP_ITS ---
Operative Report Date of procedure: January 28, 2022 Pre-op diagnosis: Left inguinal hernia Post-op diagnosis: Large left reducible indirect inguinal hernia Procedure done: Laparoscopic total extraperitoneal repair of reducible left indirect inguinal hernia with Surgimax 3D mesh measuring 16 x 10cm Surgeon: Luis Chua Anesthesia: General Condition: stable Disposition: PACU Procedure: The patient was taken to the operating room and intubated under general anesthesia. After IV antibiotic was administered, the abdomen was prepped and draped in a sterile manner. Using a 15 blade, a 1.0 cm transverse incision was made infraumbilically on the left side. Subcutaneous tissue was divided using electrocautery and the anterior rectus sheath divided using an 11 blade. The rectus muscle was retracted laterally and the extraperitoneal space identified. A 11 mm port was placed and 12 mm of pneumoperitoneum was created. A 10 mm 30? scope was introduced and the retrorectus space was opened using the camera up to the pubic symphysis and 5 mm ports were placed in the midline, one 2- fingerbreadths above the pubic symphysis and the other midway between these two ports under direct visualization. Blunt dissection was carried out to open up the tissue in the midline and to the pubic symphysis, which was identified. The dissection was carried laterally where the iliopubic tract was identified. There was no femoral, obturator or direct hernia noted. The inferior epigastric artery was identified and dissection was carried posterior to it and laterally, the space was opened up to the level of the umbilicus superior to the anterior superior iliac spine. I then proceeded to dissect out the spermatic cord and the large indirect hernial sac was reduced . 16 x 10cm Surgimax 3D mesh was rolled and introduced through the 10 mm port and then rolled laterally and apposed well against the abdominal wall to cover the myopectineal orifice completely. 10 Cc of 0.25% Marcaine was infiltrated into the preperitoneal space. The extraperitoneal space was desufflated under direct visualization to ensure no slippage of hernial sac under the mesh. All ports were removed, the anterior rectus fascia at the infraumbilical port closed using figure of eight 0 Vicryl sutures, subcutaneous tissue approximated using 3-0 Vicryl sutures and skin at all three port sites were closed using running subcuticular 4-0 Monocryl sutures and Dermabond. 10 mL of 0.25% Marcaine was infiltrated at the port sites. The patient was stable throughout the procedure.
[2022-01-28] MEDS: HYDROcodone-acetaminophen 5-325 mg Tablet 1 TAB PO (15:00)
--- NOTE | 2022-01-28 15:23 | ANE.PACU2 ---
Inpatient post-anesthesia follow up: Airway intact: Yes Vital signs: Temperature 97.8 F Pulse Rate 75 Respiratory Rate 18 Blood Pressure 132/77 Pulse Oximetry 94 Oxygen Delivery Me thod Room Air Oxygen Flow Rate 2 Fraction of Inspir ed Oxygen Hydration adequate: Yes Nausea and vomiting: No Pain level: 1 Mental status: Baseline
== END | disposition home or self-care (01) ==
PROVIDERS: PCP Family Medicine; Visit Provider Surgery
PROC: (CPT 49650; principal; 2022-01-28 10:15)
DX: K40.90 Unilateral inguinal hernia, without obstruction or gangrene, not specified as recurrent (principal); J44.9 Chronic obstructive pulmonary disease, unspecified; G47.30 Sleep apnea, unspecified; I25.10 Atherosclerotic heart disease of native coronary artery without angina pectoris; Z95.5 Presence of coronary angioplasty implant and graft; Z95.1 Presence of aortocoronary bypass graft; I11.0 Hypertensive heart disease with heart failure; I50.9 Heart failure, unspecified; G47.33 Obstructive sleep apnea (adult) (pediatric); K21.9 Gastro-esophageal reflux disease without esophagitis; E03.9 Hypothyroidism, unspecified; N40.1 Benign prostatic hyperplasia with lower urinary tract symptoms; N13.8 Other obstructive and reflux uropathy; Z86.16 Personal history of COVID-19; E78.5 Hyperlipidemia, unspecified; Z87.891 Personal history of nicotine dependence
CPT/HCPCS: 49650; 36416; 82962; 93005; C1781; J1100; J2405; J2704; J2710; J3010; J3490; J7030

== ENCOUNTER 2022-01-29 04:41 | Emergency (ER) | payer OTHER, SELFPAY ==
[2022-01-29 04:51] VITALS: BP 133/100; PULSE 83; RESP 22; TEMP 36.4; O2SAT 97; BMI 36.9
--- NOTE | 2022-01-29 05:02 | ED_ITS ---
HPI - Male Genitourinary General: Chief complaint: Urogenital-Male Stated complaint: Groin pain From Hernia Surgery Time Seen by Provider: 01/29/22 04:50 History of Present Illness: 76-year-old male presenting today with concerns for lack of ability to urinate. Patient states that he has not been able to urinate all day. Except for small amounts. He also has a history of BPH. He also notes that he had general surgery yesterday for hernia repair. He notes that he has essentially been able to pee since this time. He notes significant suprapubic abdominal pain. She describes it as 9 out of 10. Worse movements are relieved with rest. He denies any other abdominal pain. He notes normal bowel movements. He denies nausea or vomiting. Review of Systems General: Reports: 10 or more systems reviewed and unremarkable except in HPI and below PFSH ED PFSH: Medical History (Updated 01/29/22 @ 05:36 by Jean Salgado DO) BPH loc w urin obs/LUTS CHF (congestive heart failure) Specifics unknown. Currently compensated. COPD (chronic obstructive pulmonary disease) COVID-19 Left lower lobe community-acquired pneumonia. Secondary bacterial pneumonia cannot be completely ruled out Diabetes Elevated PSA Erectile dysfunction Hyperlipidemia Hypertension Surgical History (Updated 01/28/22 @ 09:53 by Luis Chua MD) History of thyroid surgery History of umbilical hernia repair S/P angioplasties S/P CABG (coronary artery bypass graft) S/P tonsillectomy Status post left inguinal hernia repair (01/28/22) Stented coronary artery Family History Mother , 70's No problems noted. Father , 73 No problems noted. Social History Smoking and tobacco status: former smoker Alcohol intake: never Marital status: service: Yes Current occupational status: retired History of recent travel: No Physical Exam Const: COMMON NORMALS: no acute distress, patient oriented x3 and alert GENERAL APPEARANCE: cooperative ORIENTATION/CONSCIOUSNESS: Yes awake, Yes oriented to person, Yes oriented to place and Yes oriented to time HENMT: COMMON NORMALS: normocephalic, atraumatic, external ears normal, Normal external nose present and moist oral mucous membranes HEAD & SCALP: normal to inspection, normocephalic and atraumatic NOSE: Normal external nose present GENERAL EAR: hearing grossly impaired EXTERNAL EAR: Yes external ears normal Eye: COMMON NORMALS: Equal, round and reactive pupils present, EOMs intact bilaterally, conjunctivae normal and no scleral icterus GENERAL EYE: appearance normal, both eyes and all related structures EYELID: eyelids normal CONJUNCTIVA: Yes conjunctivae normal SCLERA: sclerae normal PUPIL: Yes Equal, round and reactive pupils present Neck/C-Spine: COMMON NORMALS: full ROM, supple and no JVD GENERAL: Yes normal visual inspection Lymph: LYMPHATIC: no lymphadenopathy noted and no lymphedema noted Chest: COMMONS NORMALS: normal inspection of the chest Resp: COMMON NORMALS: normal respiratory effort, No retractions and No use of accessory muscles Cardio: COMMON NORMALS: no JVD, regular rate and regular rhythm RATE: regular rate RHYTHM: regular rhythm GI: COMMON NORMALS: Normal to inspection, nondistended, normoactive bowel sounds present : COMMON NORMALS: Yes no CVA tenderness BLADDER/KIDNEY EXAM: Yes no CVA tenderness Back/Pelvis: COMMON NORMALS: no CVA tenderness and thoracic and lumbar spine normal to inspection Extremity: COMMON NORMALS: normal to inspection, full ROM and capillary refill normal GENERAL: Yes normal exam except as noted Neuro: COMMON NORMALS: patient oriented x3, CN's II-XII intact bilaterally, moves all extremities, no focal motor deficits, no sensory deficits noted and gait normal SENSORIUM/ORIENTATION: Yes alert, Yes oriented to person, Yes oriented to place and Yes oriented to time Psych: COMMON NORMALS: mental status grossly normal, Normal thought process present, cooperative and normal affect THOUGHT PROCESS: Normal thought process present Skin: COMMON NORMALS: no rashes or lesions noted and no wounds GENERAL SKIN EXAM: no rashes or lesions noted Course Vital Signs: Vital signs: Vital Signs Temperature 97.6 F 01/29/22 04:51 Pulse Rate 83 01/29/22 04:51 Respiratory Rate 22 H 01/29/22 04:51 Blood Pressure 133/100 01/29/22 04:51 Pulse Oximetry 97 01/29/22 04:51 Oxygen Delivery Me thod 01/29/22 04:51 [facility] - Male Medical Decision Making Patient is a 76-year-old male presenting today with suprapubic abdominal pain. Urinary catheterization with almost 1000 mL out. Resolution of patient's pain. Will refer on to urology. Lab Data Laboratory Results Urine Color Yellow (Yellow) 01/29/22 05:20 Urine Appearance Clear (CLEAR) 01/29/22 05:20 Urine pH 5 (5-7) 01/29/22 05:20 Ur Specific [employer] 1.020 (1.005-1.030) 01/29/22 05:20 Urine Protein Neg (Negative) 01/29/22 05:20 Urine Glucose (UA) 2+ (Normal) H 01/29/22 05:20 Urine Ketones Negative (Negative) 01/29/22 05:20 Urine Blood 2+ (Negative) H 01/29/22 05:20 Urine Nitrate Negative (Negative) 01/29/22 05:20 Urine Bilirubin Neg (Negative) 01/29/22 05:20 Urine Urobilinogen Neg mg/dL (Negative) 01/29/22 05:20 Ur Leukocyte Esterase Negative (Negative) 01/29/22 05:20 Urine RBC 10-15 /hpf (0-2) H 01/29/22 05:20 Urine WBC 0-4 /hpf (0-5) H 01/29/22 05:20 Ur Squamous Epith Cells 0-4 /hpf (0-5) H 01/29/22 05:20 Amorphous Sediment Not Reportable 01/29/22 05:20 Urine Bacteria Trace /hpf (NONE) 01/29/22 05:20 Discharge Plan Discharge Patient Disposition: Home Clinical Impression: Acute urinary retention Condition: Stable Prescriptions: No Action ipratropium-albuterol 0.5 mg-3 mg(2.5 mg base)/3 mL solution for nebulization 3 ml INHALATION QID PRN (Reason: unknown) Rx Instructions: pts orion states the pt has been using once or twice a day metformin 1,000 mg tablet 500 mg PO BID Rx Instructions: pts orion states the pt takes this medication Combivent Respimat 20-100 mcg/actuation mist 1 puff INHALATION QID PRN (Reason: unknown) tamsulosin 0.4 mg capsule 0.4 mg PO DAILY Rx Instructions: PTS ORION STATES THE PT TAKES THIS MEDICATION spironolactone 25 mg tablet 25 mg PO DAILY Rx Instructions: PTS ORION STATES THE PT TAKES THIS MEDICATION clopidogrel 75 mg tablet 75 mg PO DAILY Hold Instructions: Resume on 01/31/22. Rx Instructions: pts orion states the pt takes this medication carvedilol 25 mg tablet 25 mg PO BID Rx Instructions: pts orion states the pt takes this medication aspirin [Adult Aspirin Regimen] 81 mg tablet,delayed release (DR/EC) 162 mg PO DAILY Rx Instructions: pts orion states the pt takes this medication levothyroxine 75 mcg capsule 75 mcg PO DAILY Rx Instructions: pts states this medication makes the pt sick so the pt IS NOT taking this medication-pts states this medication is on the va list Spiriva Respimat 2.5 mcg/actuation mist 2 inh INHALATION QAM artifi.tears(hypromellose)(PF) 0.3 % drops 1 drop ophthalmic (eye) BID PRN (Reason: unknown) Rx Instructions: pts steph sears states the pt uses prn guaifenesin [Mucinex] 600 mg Tablet Extended Release 12hr 600 mg PO PRN Rx Instructions: PTS ORION STATES THE PT HASNT TAKEN FOR 2-3 DAYS furosemide 20 mg tablet 20 mg PO DAILY Qty: 30 0RF Rx Instructions: pts orion states the pt takes prn potassium chloride [Klor-Con 10] 10 mEq tablet extended release 10 meq PO DAILY Qty: 30 0RF methocarbamol 750 mg Tablet 750 - 1,500 mg PO TID PRN (Reason: Muscle Spasm) Rx Instructions: pt states the pt doesnt take often mupirocin 2 % Ointment 1 applic TOPICAL BID PRN (Reason: unknown) Rx Instructions: pts states the pt just uses prn cholecalciferol (vitamin D3) [Vitamin D3] 10 mcg (400 unit) Tablet 800 unit PO PRN Rx Instructions: PTS STATES THE PT TAKES PRN budesonide-formoterol 160-4.5 mcg/actuation Hfa Aerosol Inhaler 2 puff INHALATION BID Rx Instructions: pts orion states pt takes this medication nitroglycerin [Nitrostat] 0.4 mg Tablet, Sublingual 0.4 mg SUBLINGUAL Q5M PRN (Reason: Chest Pain) hydrocodone-acetaminophen 5-325 mg tablet 1 tab PO Q6H PRN (Reason: pain) Qty: 20 0RF ondansetron HCl 4 mg tablet 4 mg PO Q8H 5 Days Qty: 15 0RF Colace 100 mg capsule 100 mg PO BID Qty: 30 0RF Discharge Orders: Discharge ED (Routine); Ordered 01/29/22 Ordered By: Jean Salgado Referrals: Mesha Romero MD [Primary Care Provider] - Miah Casiano MD [Physician] - 1-3 days Discharge Diet: Usual diet Discharge Activity: Increase activity as tolerated Patient Instructions: Urinary Retention in Men (ED), Opioid Safety Coding Level of Care Code ED Corn Detasseler for Chg Fwd Exam Comprehensive
[2022-01-29] MEDS: lidocaine 2% Urojet 20 mL TOPICAL (05:10)
[2022-01-29 05:56] LABS: Add Urine Microscopic? YES; Bilirubin Urine Neg (Negative); Blood Urine 2+ (Negative); Glucose Urine UA 2+ (Normal); Ketones Urine Negative (Negative); Leukocyte Esterase Urine Negative (Negative); Nitrate Urine Negative (Negative); Protein Urine Neg (Negative); Urine Appearance Clear (CLEAR); Urine Color Yellow (Yellow); Urobilinogen Urine Neg (Negative); pH Urine 5 (5-7)
[2022-01-29 05:57] LABS: Add Urine Culture? Yes; Bacteria Urine TRACE /hpf; Squamous Epithelial Cell Urine 0-4 /hpf (0-5); WBC Urine 0-4 /hpf (0-5)
--- NOTE | 2022-02-03 09:52 | DCPLANNER ---
Addendum entered by Rohini Hartley 02/15/22 13:16: Patient had a follow up appointment scheduled for 02.07.22 with urology - patient did attend appointment. Addendum entered by Rohini Hartley 02/04/22 14:19: Patient has a follow up appointment scheduled for Monday, February 07, 2022 at 10:00 with Rabia Salazar at urology. Clinic will call patient with appointment information. Original Note: electronics commodity manager had message to schedule a follow up appointment for patient with urology. electronics commodity manager sent patients information to the front office staff at urology. Patients information will be printed and reviewed. Clinic will call patient with appointment information.
== END 2022-01-29 06:07 | disposition home or self-care (01) ==
PROVIDERS: Emergency Provider Emergency Medicine; PCP Family Medicine
DX: R33.9 Retention of urine, unspecified (principal); Z79.84 Long term (current) use of oral hypoglycemic drugs; Z79.02 Long term (current) use of antithrombotics/antiplatelets; Z79.82 Long term (current) use of aspirin; I11.0 Hypertensive heart disease with heart failure; I50.9 Heart failure, unspecified; J44.9 Chronic obstructive pulmonary disease, unspecified; E78.5 Hyperlipidemia, unspecified; Z95.1 Presence of aortocoronary bypass graft; Z87.891 Personal history of nicotine dependence
CPT/HCPCS: 51702; 81001; 87086; 99283

== ENCOUNTER → 2022-02-07 09:29 | Outpatient (BNVA) | payer OTHER, SELFPAY | PROVIDERS: PCP Family Medicine; Visit Provider Nurse Practitioner Family | DX: R33.9 Retention of urine, unspecified (principal); N40.1 Benign prostatic hyperplasia with lower urinary tract symptoms; R97.20 Elevated prostate specific antigen [PSA] | CPT/HCPCS: 51700; 99213 ==

== ENCOUNTER → 2022-02-08 10:38 | Outpatient (BNVA) | payer OTHER, SELFPAY | PROVIDERS: PCP Family Medicine; Visit Provider Surgery | DX: Z98.890 Other specified postprocedural states (principal) | CPT/HCPCS: 99024 ==

== ENCOUNTER → 2022-02-15 08:58 | Outpatient (BNVA) | payer OTHER, SELFPAY | PROVIDERS: PCP Family Medicine; Visit Provider Surgery | DX: Z98.890 Other specified postprocedural states (principal); Z87.19 Personal history of other diseases of the digestive system; N39.0 Urinary tract infection, site not specified; R97.20 Elevated prostate specific antigen [PSA] | CPT/HCPCS: 36415; 84153; 87077; 87086; 87186; 99024 ==

== ENCOUNTER → 2022-03-01 14:30 | Outpatient (BNVA) | payer OTHER, SELFPAY | PROVIDERS: PCP Family Medicine; Visit Provider Urology | DX: N40.1 Benign prostatic hyperplasia with lower urinary tract symptoms (principal); N45.1 Epididymitis; R97.20 Elevated prostate specific antigen [PSA]; R33.9 Retention of urine, unspecified; N52.1 Erectile dysfunction due to diseases classified elsewhere | CPT/HCPCS: 51741; 51798; 81003; 87086; 99213 ==

== ENCOUNTER → 2022-04-28 08:27 | Outpatient (BNVA) | payer OTHER, SELFPAY | PROVIDERS: PCP Family Medicine; Visit Provider Urology | DX: N45.1 Epididymitis (principal); R97.20 Elevated prostate specific antigen [PSA]; N40.1 Benign prostatic hyperplasia with lower urinary tract symptoms | CPT/HCPCS: 51798; 81003; 99213 ==

== ENCOUNTER 2022-08-08 08:11 | Outpatient (CLI) | payer OTHER, SELFPAY | END 2022-08-08 08:12 | disposition home or self-care (01) | LOC: LAB 08:24 | PROVIDERS: PCP Family Medicine; Visit Provider Urology | DX: N40.1 Benign prostatic hyperplasia with lower urinary tract symptoms (principal) | CPT/HCPCS: 36415; 84153 ==

== ENCOUNTER → 2022-08-11 14:58 | Outpatient (BNVA) | payer OTHER, SELFPAY | PROVIDERS: PCP Family Medicine; Visit Provider Urology | DX: N40.1 Benign prostatic hyperplasia with lower urinary tract symptoms (principal); N13.8 Other obstructive and reflux uropathy; R97.20 Elevated prostate specific antigen [PSA]; N45.1 Epididymitis | CPT/HCPCS: 51798; 81003; 99213 ==

== ENCOUNTER 2022-11-24 08:31 | Outpatient (CLI) | payer OTHER, SELFPAY | END 2022-11-24 08:32 | disposition home or self-care (01) | LOC: LAB 08:33 | PROVIDERS: PCP Family Medicine; Visit Provider Urology | DX: R97.20 Elevated prostate specific antigen [PSA] (principal) | CPT/HCPCS: 36415; 84153 ==

== ENCOUNTER → 2022-12-01 15:30 | Outpatient (BNVA) | payer OTHER, SELFPAY | PROVIDERS: PCP Family Medicine; Visit Provider Urology | DX: R97.20 Elevated prostate specific antigen [PSA] (principal); R33.9 Retention of urine, unspecified; N40.1 Benign prostatic hyperplasia with lower urinary tract symptoms; N45.1 Epididymitis | CPT/HCPCS: 51798; 99213 ==

== ENCOUNTER → 2023-03-30 14:47 | Outpatient (BNVA) | payer OTHER, SELFPAY | PROVIDERS: PCP Family Medicine; Visit Provider Physician Assistant | DX: S63.502A Unspecified sprain of left wrist, initial encounter; X58.XXXA Exposure to other specified factors, initial encounter; M79.5 Residual foreign body in soft tissue | CPT/HCPCS: 73110 ==

== ENCOUNTER 2023-03-30 16:16 | Outpatient (CLI) | payer OTHER, SELFPAY | END 2023-03-30 16:17 | disposition home or self-care (01) | LOC: SPT 16:18 | PROVIDERS: PCP Family Medicine; Visit Provider Physician Assistant | DX: Z46.89 Encounter for fitting and adjustment of other specified devices (principal); S63.509D Unspecified sprain of unspecified wrist, subsequent encounter; X58.XXXD Exposure to other specified factors, subsequent encounter | CPT/HCPCS: 99203; L3908 ==

== ENCOUNTER 2023-05-29 01:50 | Emergency (ER) | payer OTHER, SELFPAY ==
[2023-05-29 01:51] VITALS: BP 118/71; PULSE 85; RESP 25; TEMP 37.3; O2SAT 91; BMI 36.9
--- NOTE | 2023-05-29 02:12 | XRR_ITS ---
PROCEDURE INFORMATION: Exam: XR Chest Exam date and time: 05/29/2023 2:17 AM Age: 77 years old Clinical indication: Shortness of breath; Prior surgery; Surgery date: 6+ months; Surgery type: Thyroid. Cabg. Coronary stents. Patient HX: C/O general weakness with SOB. History of chf and copd. ; Additional info: SOB, weakness TECHNIQUE: Imaging protocol: Radiologic exam of the chest. Views: 1 view. COMPARISON: CR XR chest 1V portable [id number] 05/16/2020 7:44 AM FINDINGS: Lungs: No consolidation. Probable subsegmental atelectasis/scarring in the left lateral lung base. Pleural spaces: No large pleural effusion. No pneumothorax. Heart/Mediastinum: Unchanged cardiomediastinal silhouette. Bones/joints: Intact sternal wires. XR/XR chest 1V portable [id number] IMPRESSION: 1. No acute findings. 2. Probable subsegmental atelectasis/scarring in the left lateral lung base.
[2023-05-29 02:20] LABS: Basophils % 0.1 %; Eosinophils % 0.1 %; Hematocrit 40.2 % (37-53); Lymphocytes # 1.4 10^3/uL (0.8-4.8); Lymphocytes % 15.3 %; Mean Corpuscular HGB Conc 33.8 g/dL (30-55); Mean Corpuscular Hemoglobin 30.6 pg (27-33); Mean Corpuscular Volume 90.3 fl (82-101); Mean Platelet Volume 9.9 fL (7.4-10.4); Monocytes # 1.5 10^3/uL (0.2-0.9); Monocytes % 16.3 %; Neutrophils # 6.04 10^3/uL (1.8-7.7); Neutrophils % 67.8 %; Nucleated Red Blood Cells % 0 %; Platelet Count 174 10^3/cmm (157-399); Red Blood Count 4.45 10^6/uL (3.85-5.65); Red Cell Distribution Width 13.2 % (12.1-15.1); White Blood Count 8.91 10^3/uL (3.29-11.43)
[2023-05-29] MEDS: sodium chloride 0.9% 1,000 ML 999 ML IV (02:30)
[2023-05-29 02:35] LABS: Influenza A by IFA positive (Negative); Influenza B by IFA negative (Negative)
--- NOTE | 2023-05-29 02:36 | ECG_ITS ---
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 Measurements Intervals [place] Rate: 84 P: 57 WI: 171 QRS: -63 QRSD: 141 T: 14 QT: 397 QTc: 471 Interpretive Statements SINUS RHYTHM RIGHT BUNDLE BRANCH BLOCK [120+ ms QRS DURATION, UPRIGHT V1, 40+ ms S IN I/aVL/V4/V5/V6] LEFT ANTERIOR FASCICULAR BLOCK [QRS AXIS <= -45, QR IN I, RS IN II] Compared to ECG 01/28/2022 10:26:08 Right bundle-branch block now present Electronically Signed On 05-29-2023 8:17:45 GAS PLANT SPECIALIST by Rasheed Nicholas M.D. [id number]
[2023-05-29 02:45] LABS: Alanine Aminotransferase 15 U/L (0-41); Albumin Level 4.2 g/dL (3.5-5.2); Alkaline Phosphatase 61 U/L (40-130); Anion Gap 15.8 (5-19); Aspartate Amino Transferase 24 U/L (0-40); Blood Urea Nitrogen 11 mg/dL (8-23); C Reactive Protein 13.4 mg/L (0.0-4.9); Calcium 8.6 mg/dL (8.5-10.5); Carbon Dioxide 21 mmol/L (22-29); Chloride 101 mmol/L (98-107); Globulin 3.3 g/dL (1.3-4.6); Glucose 148 mg/dL (65-115); NT Pro B Type Natriuretic Pept 458 pg/mL (0-450); Osmolality Calculated 280 mOsm/kg (285-295); Potassium 3.8 mmol/L (3.5-5.1); Sodium 134 mmol/L (136-145); Total Bilirubin 0.4 mg/dL (0.15-1.2); Total Protein 7.5 g/dL (6.6-8.7)
[2023-05-29 02:45] LABS: SARS Covid-2 Antigen negative (Negative)
[2023-05-29 02:57] LABS: Troponin(5th) Baseline 18 ng/L (0-15)
[2023-05-29 03:10] VITALS: BP 103/61; PULSE 85; RESP 18; O2SAT 90
[2023-05-29] MEDS: ipratropium-albuterol 3 mL Neb INHALATION (03:46)
[2023-05-29 03:47] VITALS: PULSE 85; RESP 22; O2SAT 91
[2023-05-29 03:53] LABS: Lactic Sepsis W/Reflex 1.4 mmol/L (0.5-2.2)
[2023-05-29 03:54] VITALS: PULSE 86
[2023-05-29 03:55] LABS: Troponin 5 2HR 18.99 ng/L (0-15); Troponin 5 2HR Delta 0.99 ABS# (0-10)
[2023-05-29] MEDS: dexamethasone 4 mg/mL INJ 8 MG IVP (04:09)
[2023-05-29] MEDS: ondansetron 2 mg/ML SDV 2 mL 4 MG IVP (04:11)
--- NOTE | 2023-05-29 04:12 | ED_ITS ---
HPI - Weakness 2 General: Chief complaint: Weakness Stated complaint: WEAKNESS Time Seen by Provider: 05/29/23 02:00 Source: patient and family History of Present Illness: 77-year-old male gentleman with a histor y of COPD and coronary disease. He presents with generalized weakness, cough, some shortness of breath. He went on a cruise recently, and thinks he may have been exposed to an illness. He had some yellow sputum production. Weakness seems worse over the last 2 days in particular. He fell at home, and could not get up on his own. He does not usually use oxygen. Associated symptoms: Denies chest pain, chills, confusion, fever(s), headache(s), nausea or vomiting Review of Systems 2 Const: Denies: fever(s), chills or body aches Eyes: Denies: change in vision Card: Denies: chest pain or palpitations Resp: Reports: dyspnea, productive cough and wheezing GI: Denies: abdominal pain, nausea, vomiting or hematochezia Skin/Breast: Denies: rash Neuro: Denies: headache(s), dizziness or confusion PFSH ED 2 PFSH: Medical History COVID-19 Left lower lobe community-acquired pneumonia. Secondary bacterial pneumonia cannot be completely ruled out Erectile dysfunction Elevated PSA COPD (chronic obstructive pulmonary disease) CHF (congestive heart failure) Specifics unknown. Currently compensated. Hypertension Hyperlipidemia Diabetes BPH loc w urin obs/LUTS Surgical History Status post left inguinal hernia repair (01/28/22) History of umbilical hernia repair S/P CABG (coronary artery bypass graft) Stented coronary artery S/P angioplasties S/P tonsillectomy History of thyroid surgery Family History Mother , 70's No problems noted. Father , 73 No problems noted. Social History Smoking and tobacco/nicotine status: former use of tobacco/nicotine Alcohol intake: never Substance/Drug Use: never Marital status: service: Yes Current occupational status: retired Physical Exam 2 Const: GENERAL APPEARANCE: cooperative and ill appearing (Mildly); not frail appearing HENMT: COMMON NORMALS: normocephalic, atraumatic and Normal external nose present HEAD & SCALP: normocephalic and atraumatic FACE & SINUS: normal facial exam and face symmetric NOSE: Normal external nose present Eye: COMMON NORMALS: Equal, round and reactive pupils present and EOMs intact bilaterally PUPIL: Yes Equal, round and reactive pupils present Neck/C-Spine: GENERAL: Yes trachea midline Chest: CHEST: Yes Symmetrical chest wall rise Resp: EFFORT & INSPECTION: Yes tachypneic and Yes labored AUSCULTATION: r honchi and wheezes Cardio: COMMON NORMALS: regular rate and regular rhythm RATE: regular rate RHYTHM: regular rhythm GI: COMMON NORMALS: Normal to inspection, nondistended, normoactive bowel sounds present Extremity: COMMON NORMALS: no pedal edema Neuro: NELDA COMA SCALE: document GCS findings [place] coma scale eye opening: Spontaneous [place] coma scale verbal response: Orientated Nelda coma scale motor response: Obey commands [place] coma scale total score: 15 S ENSORY EXAM: Yes extremities (intact) Psych: COMMON NORMALS: speech normal SPEECH: Yes normal speech Skin: COMMON NORMALS: no rashes or lesions noted GENERAL SKIN EXAM: no rashes or lesions noted Course 2 Vital Signs: Vital signs: Vital Signs Temperature 99.2 F 05/29/23 01:51 Pulse Rate 86 05/29/23 03:54 Respiratory Rate 22 H 05/29/23 03:47 Blood Pressure 103/61 05/29/23 03:10 Pulse Oximetry 91 05/29/23 03:47 Oxygen Delivery Me thod Room Air 05/29/23 03:47 MDM - Weakness Medical Decision Making Vitals been stable. Temperature is 99.2. Sats on room air 91%. CBC is normal. BMP shows a blood sugar of 148, bicarb of 21. Chest x-ray shows no acute findings. He is positive for influenza A. He is given a DuoNeb, and dexamethasone IV here. Continue steroids at home, uses nebulizer machine, Tamiflu. Return for worsening symptoms. Lab Data 05/29/23 02:00 05/29/23 02:00 Radiology Impressions Chest X-Ray 05/29/23 02:12 IMPRESSION: 1. No acute findings. 2. Probable subsegmental atelectasis/scarring in the left lateral lung base. Laboratory Results WBC 8.91 10^3/uL (3.29-11.43) 05/29/23 02:00 RBC 4.45 10^6/uL (3.85-5.65) 05/29/23 02:00 Hgb 13.60 g/dL (11.27-16.99) 05/29/23 02:00 Hct 40.2 % (37-53) 05/29/23 02:00 MCV 90.3 fl (82-101) 05/29/23 02:00 MCH 30.6 pg (27-33) 05/29/23 02:00 MCHC 33.8 g/dL (30-55) 05/29/23 02:00 RDW 13.2 % (12.1-15.1) 05/29/23 02:00 Plt Count 174 10^3/cmm (157-399) 05/29/23 02:00 MPV 9.9 fL (7.4-10.4) 05/29/23 02:00 Neut % (Auto) 67.8 % 05/29/23 02:00 Lymph % (Auto) 15.3 % 05/29/23 02:00 [place] % (Auto) 16.3 % 05/29/23 02:00 Eos % (Auto) 0.1 % 05/29/23 02:00 Baso % (Auto) 0.1 % 05/29/23 02:00 Neut # (Auto) 6.04 10^3/uL (1.8-7.7) 05/29/23 02:00 Lymph # (Auto) 1.4 10^3/uL (0.8-4.8) 05/29/23 02:00 [place] # (Auto) 1.5 10^3/uL (0.2-0.9) H 05/29/23 02:00 Eos # (Auto) 0.0 10^3/uL (0.0-0.8) 05/29/23 02:00 Baso # (Auto) 0.0 10^3/uL (0.0-0.1) 05/29/23 02:00 Nucleated RBC % (auto) 0 % 05/29/23 02:00 Nucleated RBCs # 0.0 /100WBC 05/29/23 02:00 Sodium 134 mmol/L (136-145) L 05/29/23 02:00 Potassium 3.8 mmol/L (3.5-5.1) 05/29/23 02:00 Chloride 101 mmol/L (98-107) 05/29/23 02:00 Carbon Dioxide 21 mmol/L (22-29) L 05/29/23 02:00 Anion Gap 15.8 (5-19) 05/29/23 02:00 BUN 11 mg/dL (8-23) 05/29/23 02:00 Creatinine 1.2 mg/dL (0.7-1.2) 05/29/23 02:00 GFR Calculation Not Reportable 05/29/23 02:00 Glucose 148 mg/dL (65-115) H 05/29/23 02:00 Calculated Osmolality 280 mOsm/kg (285-295) L 05/29/23 02:00 Lactic Acid 1.4 mmol/L (0.5-2.2) 05/29/23 03:31 Calcium 8.6 mg/dL (8.5-10.5) 05/29/23 02:00 Total Bilirubin 0.4 mg/dL (0.15-1.2) 05/29/23 02:00 AST 24 U/L (0-40) 05/29/23 02:00 ALT 15 U/L (0-41) 05/29/23 02:00 Alkaline Phosphatase 61 U/L (40-130) 05/29/23 02:00 Troponin T Baseline 18 ng/L (0-15) H 05/29/23 02:00 Troponin T 120 Minute 18.99 ng/L (0-15) H 05/29/23 03:31 Delta Troponin T 0.99 ABS# (0-10) 05/29/23 03:31 C-Reactive Protein 13.4 mg/L (0.0-4.9) H 05/29/23 02:00 NT-Pro-B Natriuret Pep 458 pg/mL (0-450) H 05/29/23 02:00 Total Protein 7.5 g/dL (6.6-8.7) 05/29/23 02:00 Albumin 4.2 g/dL (3.5-5.2) 05/29/23 02:00 Globulin 3.3 g/dL (1.3-4.6) 05/29/23 02:00 Influenza Type A Ag positive (Negative) H 05/29/23 02:14 Influenza Type B Ag negative (Negative) 05/29/23 02:14 SARS-CoV-2 Ag (Rapid) negative (Negative) 05/29/23 02:14 All radiology interpretation(s) finalized by discharge Discharge Plan Discharge Patient Disposition: Home Clinical Impression: Influenza A Condition: Stable Prescriptions: New methylprednisolone [Medrol (Hen[place])] 4 mg tablets,dose pack See Rx Instructions .ROUTE .COMPLEX Qty: 21 0RF Rx Instructions: orally per package directions oseltamivir [Tamiflu] 75 mg capsule 75 mg PO BID 5 Days Qty: 10 0RF No Action ipratropium-albuterol 0.5 mg-3 mg(2.5 mg base)/3 mL solution for nebulization 3 ml INHALATION QID PRN (Reason: unknown) Rx Instructions: pts orion states the pt has been using once or twice a day metformin 1,000 mg tablet 500 mg PO BID Rx Instructions: pts orion states the pt takes this medication Combivent Respimat 20-100 mcg/actuation mist 1 puff INHALATION QID PRN (Reason: unknown) spironolactone 25 mg tablet 25 mg PO DAILY Rx Instructions: PTS ORION STATES THE PT TAKES THIS MEDICATION clopidogrel 75 mg tablet 75 mg PO DAILY Hold Instructions: Resume on 01/31/22. Rx Instructions: pts orion states the pt takes this medication carvedilol 25 mg tablet 25 mg PO BID Rx Instructions: pts orion states the pt takes this medication aspirin [Adult Aspirin Regimen] 81 mg tablet,delayed release (DR/EC) 162 mg PO DAILY Rx Instructions: pts orion states the pt takes this medication levothyroxine 75 mcg capsule 75 mcg PO DAILY Rx Instructions: pts states this medication makes the pt sick so the pt IS NOT taking this medication-pts states this medication is on the va list Spiriva Respimat 2.5 mcg/actuation mist 2 inh INHALATION QAM artifi.tears(hypromellose)(PF) 0.3 % drops 1 drop ophthalmic (eye) BID PRN (Reason: unknown) Rx Instructions: pts orion states the pt uses prn simvastatin 10 mg tablet 10 mg PO DAILY polyethylene glycol 3350 17 gram/dose powder 4 g PO DAILY QUNOL PO DAILY tamsulosin 0.4 mg capsule 0.4 mg PO BID Qty: 180 3RF Fish Oil 100-160-1,000 mg capsule PO DAILY (DME) left velcro wrist brace See Rx Instructions .Route .MEDSUPPLY Qty: 1 0RF Rx Instructions: As directed guaifenesin [Mucinex] 600 mg Tablet Extended Release 12hr 600 mg PO PRN Rx Instructions: PTS ORION STATES THE PT HASNT TAKEN FOR 2-3 DAYS furosemide 20 mg tablet 20 mg PO DAILY Qty: 30 0RF Rx Instructions: pts orion states the pt takes prn potassium chloride [Klor-Con 10] 10 mEq tablet extended release 10 meq PO DAILY Qty: 30 0RF methocarbamol 750 mg Tablet 750 - 1,500 mg PO TID PRN (Reason: Muscle Spasm) Rx Instructions: pt states the pt doesnt take often mupirocin 2 % Ointment 1 applic TOPICAL BID PRN (Reason: unknown) Rx Instructions: pts states the pt just uses prn cholecalciferol (vitamin D3) [Vitamin D3] 10 mcg (400 unit) Tablet 800 unit PO PRN Rx Instructions: PTS STATES THE PT TAKES PRN budesonide-formoterol 160-4.5 mcg/actuation Hfa Aerosol Inhaler 2 puff INHALATION BID Rx Instructions: pts orion states pt takes this medication nitroglycerin [Nitrostat] 0.4 mg Tablet, Sublingual 0.4 mg SUBLINGUAL Q5M PRN (Reason: Chest Pain) hydrocodone-acetaminophen 5-325 mg tablet 1 tab PO Q6H PRN (Reason: pain) Qty: 20 0RF Colace 100 mg capsule 100 mg PO BID Qty: 30 0RF Discharge Orders: Discharge ED (Routine); Ordered 05/29/23 Ordered By: Pranav Thomas Referrals: Mesha Romero MD [Primary Care Provider] - 1-3 days Patient Instructions: Influenza (ED), Opioid Safety, Pain Management Activity Restrictions/Additional Instructions: Use your nebulizer machine every 4 hours while awake scheduled for the first 48 hours, then as needed. Other medications as directed. Return for worsening shortness of breath despite treatment, worsening weakness, other concerning symptoms. Be sure to maintain your hydration. Coding Level of Care Code ED Channel Opener Outsoles for Chg Mary
[2023-05-29 04:18] VITALS: BP 124/76; PULSE 87; RESP 18; O2SAT 90
--- NOTE | 2023-05-29 04:19 | PC.NURSE ---
pt ambulated to the bathroom at this time without difficulty
== END 2023-05-29 04:32 | disposition home or self-care (01) ==
PROVIDERS: Emergency Provider Emergency Medicine; PCP Family Medicine
DX: J44.0 Chronic obstructive pulmonary disease with (acute) lower respiratory infection (principal); J10.1 Influenza due to other identified influenza virus with other respiratory manifestations; Z79.02 Long term (current) use of antithrombotics/antiplatelets; Z79.84 Long term (current) use of oral hypoglycemic drugs; Z79.82 Long term (current) use of aspirin; Z11.52 Encounter for screening for COVID-19; Z87.891 Personal history of nicotine dependence; I11.0 Hypertensive heart disease with heart failure; I50.9 Heart failure, unspecified; E78.5 Hyperlipidemia, unspecified; E11.9 Type 2 diabetes mellitus without complications; Z95.1 Presence of aortocoronary bypass graft
CPT/HCPCS: 36415; 71045; 80053; 83605; 83880; 84484; 85025; 86140; 87426; 87804; 93005; 94640; 96374; 96375; 99285; J1100; J2405; J7030

== ENCOUNTER → 2023-06-08 13:54 | Outpatient (BNVA) | payer OTHER, SELFPAY | PROVIDERS: PCP Family Medicine; Visit Provider Physician Assistant | DX: S63.502D Unspecified sprain of left wrist, subsequent encounter (principal); X58.XXXD Exposure to other specified factors, subsequent encounter | CPT/HCPCS: 99213 ==

== ENCOUNTER 2023-11-23 20:25 | Inpatient (IN) | payer OTHER, SELFPAY ==
[2023-11-23] VITALS (9 sets, daily range): BP systolic 110–151; BP diastolic 61–86; PULSE 81–105; RESP 18–22; TEMP 37.1; O2SAT 87–94
--- NOTE | 2023-11-23 21:13 | XRR_ITS ---
PROCEDURE INFORMATION: Exam: XR Chest Exam date and time: 11/23/2023 9:58 PM Age: 77 years old Clinical indication: Shortness of breath; Prior surgery; Surgery date: 6+ months; Surgery type: Heart TECHNIQUE: Imaging protocol: Radiologic exam of the chest. Views: 1 view. COMPARISON: CR XR chest 1V portable [id number] 05/29/2023 2:17 AM FINDINGS: Lungs: Atelectatic changes in the left lung base. No focal consolidation. Pleural spaces: Unremarkable. No pleural effusion. No pneumothorax. Heart/Mediastinum: Unremarkable. No cardiomegaly. Vasculature: Unfolding of the aorta. Bones/joints: Moderate degenerative disease of bilateral acromioclavicular joints. Mild degenerative disease of bilateral glenohumeral joints. Surgical changes of sternotomy. XR/XR chest 1V portable [id number] IMPRESSION: Left lung base atelectasis. No focal consolidation.
--- NOTE | 2023-11-23 21:14 | ED_ITS ---
HPI - SOB/Dyspnea 2 General: Chief Complaint: Shortness of Breath/Dyspnea Stated Complaint: sob very weak Time Seen by Provider: 11/23/23 21:09 History of Present Illness: HPI Narrative: 77-year-old man with a history of COPD, CHF, hypertension, hyperlipidemia, obesity and diabetes who presents emergency room with shortness of breath for the last 2 to 3 days. He says his updrafts are only helping a little bit. He is having some right-sided posterior back pain with his cough. He has had increased cough with some sputum production. He had some wheeze. No abdominal pain. No nausea or vomiting. He does not use oxygen at home. No altered mental status. No somnolence. Review of Systems 2 Narrative: Constitutional symptoms: Negative except as documented in HPI. Skin symptoms: Negative except as documented in HPI. Eye symptoms: Negative except as documented in HPI. ENMT symptoms: Negative except as documented in HPI. Respiratory symptoms: Negative except as documented in HPI. Cardiovascular symptoms: Negative except as documented in HPI. Gastrointestinal symptoms: Negative except as documented in HPI. Genitourinary symptoms: Negative except as documented in HPI. Musculoskeletal symptoms: Negative except as documented in HPI. Neurologic symptoms: Negative except as documented in HPI. Psychiatric symptoms: Negative except as documented in HPI. Endocrine symptoms: Negative except as documented in HPI. PFSH ED 2 PFSH: Medical History COVID-19 Left lower lobe community-acquired pneumonia. Secondary bacterial pneumonia cannot be completely ruled out Erectile dysfunction Elevated PSA COPD (chronic obstructive pulmonary disease) CHF (congestive heart failure) Specifics unknown. Currently compensated. Hypertension Hyperlipidemia Diabetes BPH loc w urin obs/LUTS Surgical History Status post left inguinal hernia repair (01/28/22) History of umbilical hernia repair S/P CABG (coronary artery bypass graft) Stented coronary artery S/P angioplasties S/P tonsillectomy History of thyroid surgery Family History Mother , 70's No problems noted. Father , 73 No problems noted. Social History Smoking and tobacco/nicotine status: former use of tobacco/nicotine Alcohol intake: never Substance/Drug Use: never Marital status: service: Yes Current occupational status: retired Physical Exam 2 Narrative: EXAM NARRATIVE: General: Alert, no acute distress. Skin: Warm, dry. Head: Normocephalic, atraumatic. Neck: Supple, trachea midline. Eye: Extraocular movements are intact. Ears, nose, mouth and throat: Oral mucosa moist. Cardiovascular: Regular rate and rhythm, Normal peripheral perfusion. Respiratory: coarse, scattered wheeze, mild increased wob. tachypnea, breath sounds are equal, Symmetrical chest wall expansion. Gastrointestinal: Soft, Nontender, Non distended, Normal bowel sounds. Musculoskeletal: Normal ROM, no deformity. Neurological: Alert and oriented to person, place, time, and situation, No focal neurological deficit observed. Psychiatric: Cooperative, appropriate mood & affect. Course 2 Vital Signs: Vital signs: Vital Signs Temperature 98.8 F 11/23/23 20:39 Pulse Rate 79 11/24/23 00:00 Respiratory Rate 18 11/23/23 23:47 Blood Pressure 110/61 11/23/23 23:00 Pulse Oximetry 90 11/24/23 00:00 Oxygen Delivery Me thod Nasal Cannula 11/24/23 00:00 Oxygen Flow Rate 2 11/24/23 00:00 MDM - SOB/Dyspnea Medical Decision Making Differential diagnosis for patient with shortness of breath includes but is not limited to and based on the above HPI, review of systems and physical exam: Pneumonia. Bronchitis. Asthma or COPD with acute exacerbation. Acute coronary syndrome / [place]. Pulmonary embolism. Anxiety. Congestive heart failure. Viral infections including influenza and Covid-19. Atrial fibrillation. Anxiety. Pleural effusion. Pneumothorax. Workup: Lab work, chest X-ray and EKG ordered to evaluate, rule in and rule out above pathologies EKG: Time 2119 rate 84. Normal sinus rhythm, No ST-T changes, no ectopy, bifascicular block. Right bundle branch and left anterior fascicular. This was reviewed and interpreted by myself the ER physician at 2124 Chest x-ray: Some chronic scarring. Sternotomy wires in place. No acute process. No infiltrate. No pneumothorax. No cardiomegaly. This was reviewed and interpreted by myself the ER physician. Lab Review: Laboratory results were reviewed and interpreted by myself the emergency room physician. White count is normal at 9.3. Hemoglobin normal at 13.9. BUN and creatinine normal at 9 and 1.1.. I reviewed the patient's medical record. Reexamination: Patient's wheezes somewhat better. He says he feels quite a bit better. However he is requiring oxygen. He does not use oxygen at home. On 2 L his oxygen saturations are 88-91. And this is at rest. No altered mental status. No focal motor deficits. He agrees to admission. Consultation: I spoke with Dr. Molina who agrees to admit the patient. He requested a D-dimer. I think this is reasonable. Assessment and plan: COPD with acute exacerbation Hypoxemia Bronchitis -3 updrafts, IV Solu-Medrol, IV doxycycline -Stable on 2 L nasal cannula -I discussed the patient with the hospitalist on-call who is admitting the patient. - Discussed findings and plan with patient. Answered any questions. - All laboratory values were reviewed and interpreted personally by myself, the ER physician - All imaging was reviewed and interpreted personally by myself, the ER physician. - Evaluation and treatment of this problem were appropriate in the emergency setting -I spent a total of >35 minutes of critical care time managing the patient, independent of any other practitioner. -The time involved in the performance of separately reportable procedures was not counted towards critical care time. Lab Data 11/23/23 21:30 11/23/23 21:30 Labs/Radiology: Radiology Impressions Chest X-Ray 11/23/23 21:13 IMPRESSION: Left lung base atelectasis. No focal consolidation. Laboratory Results WBC 9.36 10^3/uL (3.29-11.43) 11/23/23 21: RBC 4.56 10^6/uL (3.85-5.65) 11/23/23 21: Hgb 13.90 g/dL (11.27-16.99) 11/23/23: Hct 41.4 % (37-53) 11/23/23 21: MCV 90.8 fl (82-101) 11/23/23 21: MCH 30.5 pg (27-33) 11/23/23 21: MCHC 33.6 g/dL (30-55) 11/23/23 21:30 RDW 13.2 % (12.1-15.1) 11/23/23 21:30 Plt Count 185 10^3/cmm (157-399) 11/23/23 21:30 MPV 9.5 fL (7.4-10.4) 11/23/23 21:30 Neut % (Auto) 77.2 % 11/23/23 21:30 Lymph % (Auto) 10.5 % 11/23/23 21:30 Real % (Auto) 10.4 % 11/23/23 21:30 Eos % (Auto) 1.5 % 11/23/23 21:30 Baso % (Auto) 0.1 % 11/23/23 21:30 Neut # (Auto) 7.23 10^3/uL (1.8-7.7) 11/23/23 21:30 Lymph # (Auto) 1.0 10^3/uL (0.8-4.8) 11/23/23 21:30 Real # (Auto) 1.0 10^3/uL (0.2-0.9) H 11/23/23 21:30 Eos # (Auto) 0.1 10^3/uL (0.0-0.8) 11/23/23 21:30 Baso # (Auto) 0.0 10^3/uL (0.0-0.1) 11/23/23 21:30 Nucleated RBC % (auto) 0 % 11/23/23 21:30 Nucleated RBCs # 0.0 /100WBC 11/23/23 21:30 D-Dimer 0.60 ug/mLFEU (0-0.59) H 11/23/23 21:38 Specimen Type Arterial 11/23/23 23:35 Sample Site Radial, right 11/23/23 23:35 ABG pH 7.39 (7.35-7.45) 11/23/23 23:35 ABG pCO2 36.1 mmHg (35-45) 11/23/23 23:35 ABG pO2 64.3 mmHg (80.0-100.0) L 11/23/23 23:35 ABG PO2/FiO2 Ratio 0 11/23/23 23:35 ABG HCO3 21.7 mmol/L (22-26) L 11/23/23 23:35 ABG O2 Saturation 93.6 11/23/23 23:35 ABG Base Excess -2.8 mmol/L (-2.0-2.0) L 11/23/23 23:35 Noel Test Pos 11/23/23 23:35 A-a O2 Gradient 11.8 mmHg (5-10) H 11/23/23 23:35 Hematocrit 42.1 % (42-52) 11/23/23 23:35 Hgb O2 Saturation 91.9 % (95-100) L 11/23/23 23:35 Carboxyhemoglobin 1.3 %THgb (0.4-20.1) 11/23/23 23:35 Methemoglobin 0.5 % (0.4-1.5) 11/23/23 23:35 Total Hemoglobin 13.8 g/dL (14-18) L 11/23/23 23:35 Sodium 138.0 mmol/L (131-143) 11/23/23 23:35 Potassium 4.0 mmol/L (3.5-5.0) 11/23/23 23:35 Glucose 168.0 mg/dL (70-115) H 11/23/23 23:35 Ionized Calcium 1.2 mmol/L (1.1-1.4) 11/23/23 23:35 O2 Delivery Device Nc 11/23/23 23:35 O2 Liters/Min 2.0 % 11/23/23 23:35 FiO2 28.0 % 11/23/23 23:35 Legger Press Operator ID [email or web address] 11/23/23 23:35 Sodium 136 mmol/L (136-145) 11/23/23 21:30 Potassium 4.4 mmol/L (3.5-5.1) 11/23/23 21:30 Chloride 102 mmol/L (98-107) 11/23/23 21:30 Carbon Dioxide 23 mmol/L (22-29) 11/23/23 21:30 Anion Gap 15.4 (5-19) 11/23/23 21:30 BUN 9 mg/dL (8-23) 11/23/23 21:30 Creatinine 1.1 mg/dL (0.7-1.2) 11/23/23 21:30 GFR Calculation Not Reportable 11/23/23 21:30 Glucose 135 mg/dL (65-115) H 11/23/23 21:30 Calculated Osmolality 283 mOsm/kg (285-295) L 11/23/23 21:30 Calcium 8.1 mg/dL (8.5-10.5) L 11/23/23 21:30 Total Bilirubin 0.3 mg/dL (0.15-1.2) 11/23/23 21:30 AST 21 U/L (0-40) 11/23/23 21:30 ALT 16 U/L (0-41) 11/23/23 21:30 Alkaline Phosphatase 56 U/L (40-130) 11/23/23 21:30 Troponin T Baseline 17 ng/L (0-15) H 11/23/23 21:30 Troponin T 120 Minute 17.38 ng/L (0-15) H 11/23/23 23:20 Delta Troponin T 0.38 ABS# (0-10) 11/23/23 23:20 C-Reactive Protein 20.0 mg/L (0.0-4.9) H 11/23/23 21:30 Total Protein 7.3 g/dL (6.6-8.7) 11/23/23 21:30 Albumin 4.3 g/dL (3.5-5.2) 11/23/23 21:30 Globulin 3.0 g/dL (1.3-4.6) 11/23/23 21:30 Adenovirus (PCR) Not detected (NOT DETECT) 11/23/23 21:45 C. pneumoniae DNA (PCR) Not detected (NOT DETECT) 11/23/23 21:45 Coronavirus 229E (PCR) Not detected (NOT DETECT) 11/23/23 21:45 Human Metapneumovir PCR Not detected (NOT DETECT) 11/23/23 21:45 Influenza A (H1) PCR Not detected (NOT DETECT) 11/23/23 21:45 Influ A (H1/09) PCR Not detected (NOT DETECT) 11/23/23 21:45 Influenza A (H3) PCR Not detected (NOT DETECT) 11/23/23 21:45 Influenza Type A (PCR) Not detected (NOT DETECT) 11/23/23 21:45 Influenza Type B (PCR) Not detected (NOT DETECT) 11/23/23 21:45 M. pneumoniae (PCR) Not detected (NOT DETECT) 11/23/23 21:45 Parainfluenza 1 (PCR) Not detected (NOT DETECT) 11/23/23 21:45 Parainfluenza 2 (PCR) Not detected (NOT DETECT) 11/23/23 21:45 Parainfluenza 3 (PCR) Not detected (NOT DETECT) 11/23/23 21:45 Parainfluenza 4 (PCR) Not detected (NOT DETECT) 11/23/23 21:45 RSV Type A (PCR) Not detected (NOT DETECT) 11/23/23 21:45 RSV Type B (PCR) Not detected (NOT DETECT) 11/23/23 21:45 Entero/Rhino (PCR) Not detected (NOT DETECT) 11/23/23 21:45 SARS-CoV-2 (PCR) Not detected (NOT DETECT) 11/23/23 21:45 All radiology interpretation(s) finalized by discharge Discharge Plan Discharge Patient Disposition: Admitted As Inpatient Clinical Impression: COPD with acute exacerbation, Hypoxemia Condition: Stable Coding Level of Care Code ED Dental Practitioner for Adonay Hernandez
--- NOTE | 2023-11-23 21:20 | ECG_ITS ---
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 Measurements Intervals [place] Rate: 84 P: 77 MS: 183 QRS: -72 QRSD: 133 T: 13 QT: 382 QTc: 452 Interpretive Statements SINUS RHYTHM RIGHT BUNDLE BRANCH BLOCK [120+ ms QRS DURATION, UPRIGHT V1, 40+ ms S IN I/aVL/V4/V5/V6] LEFT ANTERIOR FASCICULAR BLOCK [QRS AXIS <= -45, QR IN I, RS IN II] Compared to ECG 05/29/2023 03:04:06 No significant changes Electronically Signed On 11-24-2023 12:33:57 CDT by Rasheed Nicholas M.D. [id number]
[2023-11-23] MEDS: ipratropium-albuterol 3 mL Neb INHALATION (21:28)
[2023-11-23] MEDS: albuterol 2.5 mg/3 mL Neb INHALATION ×2 (21:28→23:48)
[2023-11-23 21:50] LABS: Basophils % 0.1 %; Eosinophils # 0.1 10^3/uL (0.0-0.8); Eosinophils % 1.5 %; Hematocrit 41.4 % (37-53); Lymphocytes % 10.5 %; Mean Corpuscular HGB Conc 33.6 g/dL (30-55); Mean Corpuscular Hemoglobin 30.5 pg (27-33); Mean Corpuscular Volume 90.8 fl (82-101); Mean Platelet Volume 9.5 fL (7.4-10.4); Monocytes % 10.4 %; Neutrophils # 7.23 10^3/uL (1.8-7.7); Neutrophils % 77.2 %; Nucleated Red Blood Cells % 0 %; Platelet Count 185 10^3/cmm (157-399); Red Blood Count 4.56 10^6/uL (3.85-5.65); Red Cell Distribution Width 13.2 % (12.1-15.1); White Blood Count 9.36 10^3/uL (3.29-11.43)
[2023-11-23] MEDS: doxycycline 100 MG in sodium chloride 0.9% (plus) 100 ML IV (22:00)
[2023-11-23] MEDS: methylPREDNISolone sod succ 125 mg/2 mL INJ IVP (22:00)
[2023-11-23 22:08] LABS: Troponin(5th) Baseline 17 ng/L (0-15)
[2023-11-23 22:09] LABS: Alanine Aminotransferase 16 U/L (0-41); Albumin Level 4.3 g/dL (3.5-5.2); Alkaline Phosphatase 56 U/L (40-130); Anion Gap 15.4 (5-19); Aspartate Amino Transferase 21 U/L (0-40); Blood Urea Nitrogen 9 mg/dL (8-23); Calcium 8.1 mg/dL (8.5-10.5); Carbon Dioxide 23 mmol/L (22-29); Chloride 102 mmol/L (98-107); Creatinine Clr Calc Pharmacy 70.9327; Glucose 135 mg/dL (65-115); Osmolality Calculated 283 mOsm/kg (285-295); Potassium 4.4 mmol/L (3.5-5.1); Sodium 136 mmol/L (136-145); Total Bilirubin 0.3 mg/dL (0.15-1.2); Total Protein 7.3 g/dL (6.6-8.7)
--- NOTE | 2023-11-23 22:15 | PC.NURSE ---
Pt vomiting, states he vomited at home once today as well. Dr Mancini informed, will give georgie
[2023-11-23] MEDS: ondansetron 2 mg/ML SDV 2 mL 4 MG IVP (22:22)
--- NOTE | 2023-11-23 22:48 | PC.NURSE ---
Pt O2 sat down to 87%, enouraged deep breathing, up to 89% on room air. O2 placed at 2L/NC
--- NOTE | 2023-11-23 23:14 | ECG_ITS ---
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 Measurements Intervals [place] Rate: 80 P: 65 HI: 183 QRS: -68 QRSD: 137 T: 2 QT: 385 QTc: 446 Interpretive Statements SINUS RHYTHM RIGHT BUNDLE BRANCH BLOCK [120+ ms QRS DURATION, UPRIGHT V1, 40+ ms S IN I/aVL/V4/V5/V6] LEFT ANTERIOR FASCICULAR BLOCK [QRS AXIS <= -45, QR IN I, RS IN II] Compared to ECG 11/23/2023 21:20:16 No significant changes Electronically Signed On 11-24-2023 12:36:09 CDT by Rasheed Nicholas M.D. [id number]
[2023-11-23 23:39] LABS: Adenovirus Not Detected (NOT DETECT); Chlamydia Pneumoniae Not Detected (NOT DETECT); Coronavirus 229E,HKU1,NL63,OC4 Not Detected (NOT DETECT); Human Metapneumovirus Not Detected (NOT DETECT); Human Rhinovirus/Enterovirus Not Detected (NOT DETECT); Influenza A Not Detected (NOT DETECT); Influenza A H1 Not Detected (NOT DETECT); Influenza A H1-2009 Not Detected (NOT DETECT); Influenza A H3 Not Detected (NOT DETECT); Influenza B Not Detected (NOT DETECT); Mycoplasma Pneumoniae Not Detected (NOT DETECT); Parainfluenza Virus Type 1 Not Detected (NOT DETECT); Parainfluenza Virus Type 2 Not Detected (NOT DETECT); Parainfluenza Virus Type 3 Not Detected (NOT DETECT); Parainfluenza Virus Type 4 Not Detected (NOT DETECT); Respiratory Syncytial Virus A Not Detected (NOT DETECT); Respiratory Syncytial Virus B Not Detected (NOT DETECT); SARS-COV-2 Not Detected (NOT DETECT)
[2023-11-23 23:44] LABS: ABG PCO2 36.1 mmHg (35-45); ABG PH Result 7.39 (7.35-7.45); Alveolar-Arterial Oxygen Gradi 11.8 mmHg (5-10); Arterial Blood Gas Hematocrit 42.1 % (42-52); Base Excess ABG -2.8 mmol/L (-2.0-2.0); Blood Gas Allen Test Pos; Blood Gas Sample Site Radial, right; Blood Gas Sample Type Arterial; Carboxyhemoglobin 1.3 %THgb (0.4-20.1); HCO3 ABG 21.7 mmol/L (22-26); HGB O2 Sat 91.9 % (95-100); Ionized Calcium Level - ABG 1.2 mmol/L (1.1-1.4); Methemoglobin 0.5 % (0.4-1.5); Oxygen Device NC; Oxygen Saturation ABG 93.6; PO2 ABG 64.3 mmHg (80.0-100.0); PO2 FiO2 Ratio Arterial Blood 0; Total Hemoglobin 13.8 g/dL (14-18)
[2023-11-23 23:44] LABS: Troponin 5 2HR 17.38 ng/L (0-15); Troponin 5 2HR Delta 0.38 ABS# (0-10)
[2023-11-24] VITALS (10 sets, daily range): BP systolic 109–133; BP diastolic 65–89; PULSE 70–83; RESP 16–19; TEMP 36.4–36.8; O2SAT 88–96; BMI 36.9
--- NOTE | 2023-11-24 01:18 | P.HP_ITS ---
Providers/Chief Complaint 2 Admitting Physician: Elia Molina Primary Care Provider: Mesha Romero MD Chief Complaint: sob very weak History of Present Illness Pleasant 77-year-old gentleman with COPD presents due to worsening dyspnea, cough productive of yellow sputum, not normally on oxygen but is to require 2 L nasal cannula in ER due to oxygen saturation of 87. He had little bit of nausea and an episode of vomiting today as well. Review of Systems 2 Const: Denies: fever(s), chills, body aches or malaise ENMT: Denies: throat pain Card: Denies: chest pain, edema, pre-syncope or dyspnea on exertion Resp: Reports: dyspnea, productive cough and change in phlegm color; Denies: hemoptysis GI: Reports: vomiting; Denies: abdominal pain, nausea, diarrhea, constipation, hematochezia or melena : Denies: flank pain, difficulty urinating, urinary frequency or hematuria Musc: Denies: back pain, joint swelling or joint redness Skin/Breast: Denies: rash or new lesions Neuro: Denies: headache(s) or confusion Medications/Allergies Home Medications Medication Instructions Recorded Confirmed Last Taken Type artifi.tears(hypromellose)(PF) 0.3 1 drop ophthalmic (eye) BID PRN 10/24/19 06/08/23 1 Month Ago History % eye drops unknown ~12/28/21 aspirin 81 mg tablet,delayed 162 mg PO DAILY 10/24/19 06/08/23 01/27/22 History release (Adult Aspirin Regimen) carvedilol 25 mg tablet 25 mg PO BID 10/24/19 06/08/23 01/28/22 History clopidogrel 75 mg tablet 75 mg PO DAILY 10/24/19 06/08/23 01/24/22 History ipratropium 0.5 mg-albuterol 3 mg 3 ml inhalation QID PRN unknown 10/24/19 06/08/23 3 Weeks Ago History (2.5 mg base)/3 mL nebulization ~01/07/22 soln ipratropium 20 mcg-albuterol 100 1 puff inhalation QID PRN unknown 10/24/19 06/08/23 01/28/22 History mcg/actuation mist for inhalation (Combivent Respimat) levothyroxine 75 mcg capsule 75 mcg PO DAILY 10/24/19 06/08/23 1 Month Ago History ~12/28/21 metformin 1,000 mg tablet 500 mg PO BID 10/24/19 06/08/23 01/27/22 History spironolactone 25 mg tablet 25 mg PO DAILY 10/24/19 06/08/23 01/27/22 History tiotropium bromide 2.5 2 inh inhalation QAM 10/24/19 06/08/23 01/28/22 History mcg/actuation mist for inhalation (Spiriva Respimat) budesonide-formoterol HFA 160 2 puff inhalation BID 02/12/20 06/08/23 01/28/22 History mcg-4.5 mcg/actuation aerosol inhaler cholecalciferol (vitamin D3) 10 800 unit PO PRN 02/12/20 06/08/23 01/27/22 History mcg (400 unit) tablet (Vitamin D3) methocarbamol 750 mg tablet 750 - 1,500 mg PO TID PRN Muscle 02/12/20 06/08/23 1 Week Ago History Spasm ~01/21/22 mupirocin 2 % topical ointment 1 applic topical BID PRN unknown 02/12/20 06/08/23 1 Week Ago History ~01/21/22 nitroglycerin 0.4 mg sublingual 0.4 mg sublingual Q5M PRN Chest 02/12/20 06/08/23 Unknown History tablet (Nitrostat) Pain guaifenesin 600 mg tablet, 600 mg PO PRN 05/13/20 06/08/23 3 Weeks Ago History extended release 12 hr (Mucinex) ~01/07/22 furosemide 20 mg tablet 20 mg PO DAILY #30 tabs 05/17/20 06/08/23 1 Week Ago Rx ~01/21/22 potassium chloride 10 mEq 10 meq PO DAILY #30 tabs 05/17/20 06/08/23 2 Weeks Ago Rx tablet,extended release (Klor-Con) ~01/14/22 docusate sodium 100 mg capsule 100 mg PO BID #30 caps 01/28/22 06/08/23 Unknown Rx (Colace) hydrocodone 5 mg-acetaminophen 325 1 tab PO Q6H PRN pain #20 tabs 01/28/22 06/08/23 Unknown Rx mg tablet QUNOL PO DAILY 02/07/22 06/08/23 Unknown History polyethylene glycol 3350 17 4 g PO DAILY 02/07/22 06/08/23 Unknown History gram/dose oral powder simvastatin 10 mg tablet 10 mg PO DAILY 02/07/22 06/08/23 Unknown History tamsulosin 0.4 mg capsule 0.4 mg PO BID #180 caps 02/07/22 06/08/23 Unknown Rx left velcro wrist brace #1 ea 03/30/23 06/08/23 Unknown Rx omega 7-dhi-ogf-fish oil 100 cap PO DAILY 03/30/23 06/08/23 Unknown History mg-160 mg-1,000 mg capsule (Fish Oil) methylprednisolone 4 mg tablets in See Rx Instructions PO .COMPLEX 05/29/23 06/08/23 Unknown Rx a dose pack (Medrol (Henok)) #21 ea Allergies Allergy/AdvReac Type Severity Reaction Status Date / Time atorvastatin [From Lipitor] Allergy muslce Verified 11/23/23 20:42 weakness PFSH Acute 2 PFSH: Medical History COVID-19 Left lower lobe community-acquired pneumonia. Secondary bacterial pneumonia cannot be completely ruled out Erectile dysfunction Elevated PSA COPD (chronic obstructive pulmonary disease) CHF (congestive heart failure) Specifics unknown. Currently compensated. Hypertension Hyperlipidemia Diabetes BPH loc w urin obs/LUTS Surgical History Status post left inguinal hernia repair (01/28/22) History of umbilical hernia repair S/P CABG (coronary artery bypass graft) Stented coronary artery S/P angioplasties S/P tonsillectomy History of thyroid surgery Family History Mother , 70's No problems noted. Father , 73 No problems noted. Social History Smoking and tobacco/nicotine status: former use of tobacco/nicotine Alcohol intake: never Substance/Drug Use: never Marital status: service: Yes Current occupational status: retired Vitals/I&O/Wt Last Vital Signs Temp 98.8 F 11/23/23 20:39 Pulse 76 11/24/23 00:34 Resp 19 H 11/24/23 00:34 BP 112/65 11/24/23 00:34 Pulse Ox 91 11/24/23 00:34 O2 Del Method Nasal Cannula 11/24/23 01:04 O2 Flow Rate 2 11/24/23 00:00 11/23/23 11/23/23 11/24/23 14:59 22:59 06:59 Intake Total 100 / 100 Balance 100 / 100 Weight last 48 hrs Weight 113.398 kg Weight 113.398 kg Physical Exam 2 Const: COMMON NORMALS: patient oriented x3 and alert GENERAL APPEARANCE: c ooperative ORIENTATION/CONSCIOUSNESS: Yes awake Neck/C-Spine: COMMON NORMALS: no JVD Resp: AUSCULTATION: diminished lung sounds Cardio: COMMON NORMALS: no JVD, regular rhythm, S1 normal heart sound present, S2 normal heart sound present and No murmurs present (Cardio) RHYTHM: regular rhythm HEART SOUNDS: S1 normal heart sound present and S2 normal heart sound present GI: COMMON NORMALS: Normal to inspection, nondistended, normoactive bowel sounds present, Soft to palpation and non-tender PALPATION: Yes Soft to palpation Extremity: COMMON NORMALS: no joint enlargement and no pedal edema Neuro: COMMON NORMALS: patient oriented x3 and moves all extremities S ENSORIUM/ORIENTATION: Yes alert Data 11/23/23 21:30 11/23/23 21:30 Micro: Microbiology 11/23/23 21:40 Blood Culture - Preliminary Blood SPECIMEN COLLECTED 11/23/23 21:30 Blood Culture - Preliminary Blood SPECIMEN COLLECTED A&P Assessment and plan (1) COPD with acute exacerbation: Progressive dyspnea, productive cough with purulent appearing yellow sputum, new oxygen requirement, CT exacerbation of COPD with hypoxic respiratory, respiratory rate 22, with dyspnea, oxygen saturation 87, not normally on oxygen. Started on oxygen supplementation, discussed with him treatment of COPD exacerbation, continue IV steroids, antibiotic treatment with ceftriaxone, breathing treatments with DuoNebs. Monitor for risk of hyperglycemia and hypertension with IV steroids, risk of tachycardia with breathing treatments. Requesting sputum culture. Reviewed vitals, CBC, ABG, CMP, respiratory viral panel. Blood culture collected as well, please follow-up. Reviewed D-dimer, mild ovation 0.6, unremarkable corrected for his age. Reviewed chest x-ray, EKG, ER note, discussed with ER provider. EKG on my interpretation with RBBB, T wave inversions in 3 and aVF. Without suggestion of acute LA. Pending official read. Continue oxygen support. RT assess and treat. Wean down oxygen as tolerated. (2) Acute respiratory failure with hypoxia: As above Plan CHF: Currently not in exacerbation CAD: Requesting to confirm home medications, continue medications once available. HTN: Monitor blood pressure. Resume home medications. History of thyroid surgery: Continue levothyroxine. Requesting to confirm home medications, please review and resume as appropriate. Attestations 2 Medical Necessity Statement*: Admission of over 2 midnights anticipated for assessment and management of severe COPD exacerbation, hypoxic respiratory failure. Diagnoses COPD with acute exacerbation J44.1 Acute respiratory failure with hypoxia J96.01
[2023-11-24] MEDS: cefTRIAXone 1,000 MG in sodium chloride 0.9% (plus) 50 ML 100 MG IV (01:55)
[2023-11-24] MEDS: ipratropium-albuterol 3 mL Neb INHALATION ×2 (02:27→08:42)
--- NOTE | 2023-11-24 03:14 | ECG_ITS ---
[facility] Test Date: 2023-11-24 Pat Name: Chau Monroe Department: Room: 250 Gender: Male Chief Controller Center: : 1945 Requested By: Tamica Givens Order Number: [id number] Fernandez MD: Rasheed Nicholas M.D. Measurements Intervals [place] Rate: 71 P: 103 ME: 185 QRS: -59 QRSD: 142 T: -5 QT: 429 QTc: 466 Interpretive Statements SINUS RHYTHM RIGHT BUNDLE BRANCH BLOCK [120+ ms QRS DURATION, UPRIGHT V1, 40+ ms S IN I/aVL/V4/V5/V6] LEFT ANTERIOR FASCICULAR BLOCK [QRS AXIS <= -45, QR IN I, RS IN II] Compared to ECG 11/23/2023 23:17:48 No significant changes Electronically Signed On 11-24-2023 12:35:39 CDT by Rasheed Nicholas M.D. [id number]
[2023-11-24] MEDS: methylPREDNISolone sod succ 40 mg/mL INJ 30 MG IVP ×2 (03:45→10:30)
[2023-11-24 04:07] LABS: Troponin 5 6HR 14.86 ng/L (0-15)
[2023-11-24 04:17] LABS: Troponin 5 6HR Delta -2.14 ng/L (0-12)
--- NOTE | 2023-11-24 07:43 | PC.PHAR ---
[facility] IS [facility] 11/24/23 7:45AM
--- NOTE | 2023-11-24 09:11 | PC.PHAR ---
UPD[facility] AND VERBAL VERIFICATION FROM PT.
--- NOTE | 2023-11-24 10:28 | P.DS_ITS ---
Discharge Providers Date of Admission: 11/24/23 00:26 Date of Discharge: November 24, 2023 Attending Provider at Admission: Elia Molina Attending Provider at Discharge: Juve Palacio MD Primary Care Provider: Mesha Romero MD Diagnoses at Discharge Discharge Diagnosis (1) COPD with acute exacerbation: Status: Acute (2) Acute respiratory failure with hypoxia: Status: Acute Reason for Visit Reason for Visit: sob very weak Hospital Course Hospital Course 77-year-old male who has history of COPD not oxygen dependent at home, presented with chief complaint of shortness of breath, productive cough, he was diagnosed with acute COPD exacerbation required antibiotics and steroids, he required 2 L of oxygen at the time of discharge, I have asked him to continue using his inhalers and nebulizers which he has at home. D-dimer unremarkable to warrant thromboembolic phenomenon evaluation, respiratory panel is negative, chest x-ray unremarkable. I will discharge him on azithromycin 5-day regimen along Medrol pack. Patient was taking Lasix at nighttime and was complaining that he has to get up 4-5 times at night I have requested him and counseled him to use Lasix only in the daytime for now Physical Exam Narrative: Awake and alert GCS 15 No active wheezing Currently on 2 L Pleasant and cooperative Nonfocal neuroexam Discharge Data Studies Completed and Pending Completed Studies During Hospitalization Category Date Time Status XR chest 1V portable [id number] Stat Exams 11/23/23 21:13 Completed Pending at discharge Category Date Time Status Blood Culture Stat Lab 11/23/23 21:40 Results Sputum Culture and Gram Stain Routine Lab 11/24/23 08:25 Received Radiology Impressions Chest X-Ray 11/23/23 21:13 IMPRESSION: Left lung base atelectasis. No focal consolidation. Laboratory Results WBC 9.36 10^3/uL (3.29-11.43) 11/23/23 21:30 RBC 4.56 10^6/uL (3.85-5.65) 11/23/23 21:30 Hgb 13.90 g/dL (11.27-16.99) 11/23/23 21:30 Hct 41.4 % (37-53) 11/23/23 21:30 MCV 90.8 fl (82-101) 11/23/23 21:30 MCH 30.5 pg (27-33) 11/23/23 21:30 MCHC 33.6 g/dL (30-55) 11/23/23 21:30 RDW 13.2 % (12.1-15.1) 11/23/23 21:30 Plt Count 185 10^3/cmm (157-399) 11/23/23 21:30 MPV 9.5 fL (7.4-10.4) 11/23/23 21:30 Neut % (Auto) 77.2 % 11/23/23 21:30 Lymph % (Auto) 10.5 % 11/23/23 21:30 Sullivan % (Auto) 10.4 % 11/23/23 21:30 Eos % (Auto) 1.5 % 11/23/23 21:30 Baso % (Auto) 0.1 % 11/23/23 21:30 Neut # (Auto) 7.23 10^3/uL (1.8-7.7) 11/23/23 21:30 Lymph # (Auto) 1.0 10^3/uL (0.8-4.8) 11/23/23 21:30 Sullivan # (Auto) 1.0 10^3/uL (0.2-0.9) H 11/23/23 21:30 Eos # (Auto) 0.1 10^3/uL (0.0-0.8) 11/23/23 21:30 Baso # (Auto) 0.0 10^3/uL (0.0-0.1) 11/23/23 21:30 Nucleated RBC % (auto) 0 % 11/23/23 21:30 Nucleated RBCs # 0.0 /100WBC 11/23/23 21:30 D-Dimer 0.60 ug/mLFEU (0-0.59) H 11/23/23 21:38 Specimen Type Arterial 11/23/23 23:35 Sample Site Radial, right 11/23/23 23:35 ABG pH 7.39 (7.35-7.45) 11/23/23 23:35 ABG pCO2 36.1 mmHg (35-45) 11/23/23 23:35 ABG pO2 64.3 mmHg (80.0-100.0) L 11/23/23 23:35 ABG PO2/FiO2 Ratio 0 11/23/23 23:35 ABG HCO3 21.7 mmol/L (22-26) L 11/23/23 23:35 ABG O2 Saturation 93.6 11/23/23 23:35 ABG Base Excess -2.8 mmol/L (-2.0-2.0) L 11/23/23 23:35 Noel Test Pos 11/23/23 23:35 A-a O2 Gradient 11.8 mmHg (5-10) H 11/23/23 23:35 Hematocrit 42.1 % (42-52) 11/23/23 23:35 Hgb O2 Saturation 91.9 % (95-100) L 11/23/23 23:35 Carboxyhemoglobin 1.3 %THgb (0.4-20.1) 11/23/23 23:35 Methemoglobin 0.5 % (0.4-1.5) 11/23/23 23:35 Total Hemoglobin 13.8 g/dL (14-18) L 11/23/23 23:35 Sodium 138.0 mmol/L (131-143) 11/23/23 23:35 Potassium 4.0 mmol/L (3.5-5.0) 11/23/23 23:35 Glucose 168.0 mg/dL (70-115) H 11/23/23 23:35 Ionized Calcium 1.2 mmol/L (1.1-1.4) 11/23/23 23:35 O2 Delivery Device Nc 11/23/23 23:35 O2 Liters/Min 2.0 % 11/23/23 23:35 FiO2 28.0 % 11/23/23 23:35 Certified Dietary Manager ID [email or web address] 11/23/23 23:35 Sodium 136 mmol/L (136-145) 11/23/23 21:30 Potassium 4.4 mmol/L (3.5-5.1) 11/23/23 21:30 Chloride 102 mmol/L (98-107) 11/23/23 21:30 Carbon Dioxide 23 mmol/L (22-29) 11/23/23 21:30 Anion Gap 15.4 (5-19) 11/23/23 21:30 BUN 9 mg/dL (8-23) 11/23/23 21:30 Creatinine 1.1 mg/dL (0.7-1.2) 11/23/23 21:30 GFR Calculation Not Reportable 11/23/23 21:30 Glucose 135 mg/dL (65-115) H 11/23/23 21:30 Calculated Osmolality 283 mOsm/kg (285-295) L 11/23/23 21:30 Calcium 8.1 mg/dL (8.5-10.5) L 11/23/23 21:30 Total Bilirubin 0.3 mg/dL (0.15-1.2) 11/23/23 21:30 AST 21 U/L (0-40) 11/23/23 21:30 ALT 16 U/L (0-41) 11/23/23 21:30 Alkaline Phosphatase 56 U/L (40-130) 11/23/23 21:30 Troponin T Baseline 17 ng/L (0-15) H 11/23/23 21:30 Troponin T 120 Minute 17.38 ng/L (0-15) H 11/23/23 23:20 Delta Troponin T 0.38 ABS# (0-10) 11/23/23 23:20 Troponin T Hi Sens 6Hr 14.86 ng/L (0-15) 11/24/23 03:36 Troponin T Hi Sens 6Hr Delta -2.14 ng/L (0-12) L 11/24/23 03:36 C-Reactive Protein 20.0 mg/L (0.0-4.9) H 11/23/23 21:30 Total Protein 7.3 g/dL (6.6-8.7) 11/23/23 21:30 Albumin 4.3 g/dL (3.5-5.2) 11/23/23 21:30 Globulin 3.0 g/dL (1.3-4.6) 11/23/23 21:30 Adenovirus (PCR) Not detected (NOT DETECT) 11/23/23 21:45 C. pneumoniae DNA (PCR) Not detected (NOT DETECT) 11/23/23 21:45 Coronavirus 229E (PCR) Not detected (NOT DETECT) 11/23/23 21:45 Human Metapneumovir PCR Not detected (NOT DETECT) 11/23/23 21:45 Influenza A (H1) PCR Not detected (NOT DETECT) 11/23/23 21:45 Influ A (H1/09) PCR Not detected (NOT DETECT) 11/23/23 21:45 Influenza A (H3) PCR Not detected (NOT DETECT) 11/23/23 21:45 Influenza Type A (PCR) Not detected (NOT DETECT) 11/23/23 21:45 Influenza Type B (PCR) Not detected (NOT DETECT) 11/23/23 21:45 M. pneumoniae (PCR) Not detected (NOT DETECT) 11/23/23 21:45 Parainfluenza 1 (PCR) Not detected (NOT DETECT) 11/23/23 21:45 Parainfluenza 2 (PCR) Not detected (NOT DETECT) 11/23/23 21:45 Parainfluenza 3 (PCR) Not detected (NOT DETECT) 11/23/23 21:45 Parainfluenza 4 (PCR) Not detected (NOT DETECT) 11/23/23 21:45 RSV Type A (PCR) Not detected (NOT DETECT) 11/23/23 21:45 RSV Type B (PCR) Not detected (NOT DETECT) 11/23/23 21:45 Entero/Rhino (PCR) Not detected (NOT DETECT) 11/23/23 21:45 SARS-CoV-2 (PCR) Not detected (NOT DETECT) 11/23/23 21:45 Vitals Last Vital Signs Temp 97.6 F 11/24/23 07:55 Pulse 70 11/24/23 08:42 Resp 18 11/24/23 08:42 BP 130/89 11/24/23 07:55 Pulse Ox 88 L 11/24/23 09:03 O2 Del Method Nasal Cannula 11/24/23 08:42 O2 Flow Rate 2 11/24/23 09:03 Discharge Plan Discharge Patient Disposition: Home Condition: Stable Prescriptions: New azithromycin 500 mg tablet 500 mg PO DAILY 5 Days Qty: 5 0RF methylprednisolone [Medrol (Henok)] 4 mg tablets,dose pack See Rx Instructions .ROUTE .COMPLEX Qty: 21 0RF Rx Instructions: orally per package directions Continued spironolactone 25 mg tablet 25 mg PO DAILY clopidogrel 75 mg tablet 75 mg PO DAILY Hold Instructions: Resume on 01/31/22. carvedilol 25 mg tablet 25 mg PO BID aspirin [Adult Aspirin Regimen] 81 mg tablet,delayed release (DR/EC) 81 mg PO DAILY polyethylene glycol 3350 17 gram/dose powder See Rx Instructions .ROUTE .COMPLEX Rx Instructions: MIX 1 CAPFUL (17 GM) IN 8OZ LIQUID AND DRINK ENTIRE LIQUID ONCE DAILY TO PREVENT CONSTIPATION. (DME) left velcro wrist brace See Rx Instructions .Route .MEDSUPPLY Qty: 1 0RF Rx Instructions: As directed cholecalciferol (vitamin D3) [Vitamin D3] 10 mcg (400 unit) Tablet 800 unit PO DAILY nitroglycerin [Nitrostat] 0.4 mg Tablet, Sublingual 0.4 mg SUBLINGUAL Q5M PRN (Reason: Chest Pain) multivitamin Tablet 1 tab PO QAM Artificial Tears Plus 1.4 % Drops 1 drp OPHTHALMIC (EYE) BID simvastatin 80 mg Tablet 40 mg PO QPM sildenafil 100 mg Tablet See Rx Instructions .ROUTE .COMPLEX PRN (Reason: Erectile Dysfunction) Rx Instructions: TAKE 1 TABLET BY MOUTH TWICE WEEKLY NEEDED. TAKE 60 MINUTES PRIOR TO SEXUAL ACTIVITY. LIMIT 6 DOSES PER 30 DAYS. famotidine 20 mg Tablet 20 mg PO BID levothyroxine 50 mcg Tablet 50 mcg PO QAM metformin 500 mg Tablet Extended Release 24 Hr 500 mg PO BID Fish Oil 1,000 mg (120 mg-180 mg) Capsule 1 cap PO TID olodaterol 2.5 mcg/actuation Mist 2 puff INHALATION DAILY mometasone 200 mcg/actuation Hfa Aerosol Inhaler 1 puff INHALATION BID Colace 100 mg capsule 100 mg PO BID PRN (Reason: Constipation) furosemide 20 mg tablet 20 mg PO QAM PRN (Reason: Edema) Discharge Orders: Discharge Order (Routine); Ordered 11/24/23 Ordered By: Juve Palacio Other Ambulatory Orders: DME: Oxygen (Order) Location: None Selected Ordered By: Juve Palacio Referrals: Mesha Romero MD [Primary Care Provider] - Patient Instructions: Opioid Safety, Pain Management Discharge Attestations Time Spent in Discharge Care*: greater than 30 min Quality Metrics Clinical Quality Measures [ No reported AMI, CVA or VTE this stay] Coding Level of Care Code Acute Code for [facility] Diagnoses COPD with acute exacerbation J44.1 Acute respiratory failure with hypoxia J96.01
--- NOTE | 2023-11-24 11:32 | PC.SOCIAL ---
IMM Updated Updated pt & family on IMM. No questions voiced. Provided pt a copy. Initialed, dated, & timed a copy & placed in chart.
== END 2023-11-24 13:50 | disposition home or self-care (01) | DRG 190 ==
LOC: ER 11-24 00:12 → MEDSURG 11-24 00:27
PROVIDERS: Admitting Provider Internal Medicine; Emergency Provider Emergency Medicine; PCP Family Medicine; Visit Provider Internal Medicine
DX: J44.1 Chronic obstructive pulmonary disease with (acute) exacerbation (principal); J96.01 Acute respiratory failure with hypoxia; I11.0 Hypertensive heart disease with heart failure; I50.9 Heart failure, unspecified; I25.10 Atherosclerotic heart disease of native coronary artery without angina pectoris; Z79.82 Long term (current) use of aspirin; Z79.02 Long term (current) use of antithrombotics/antiplatelets; Z87.891 Personal history of nicotine dependence; E89.0 Postprocedural hypothyroidism
CPT/HCPCS: 36415; 36600; 71045; 80051; 80053; 82330; 82805; 84484; 85025; 85378; 86140; 87040; 87070; 87205; 87486; 87581; 87633; 93005; 94640; 94760; 96365; 96375; 99285; J0696; J2405; J2919; J3490; J7613

== ENCOUNTER 2024-07-23 08:59 | Inpatient (IN) | payer OTHER, SELFPAY ==
[2024-07-23] VITALS (17 sets, daily range): BP systolic 112–172; BP diastolic 68–107; PULSE 53–75; RESP 15–20; TEMP 36.3–37.2; O2SAT 92–97; BMI 35.2; BMI 35.1
--- NOTE | 2024-07-23 09:02 | ECG_ITS ---
[facility]24[facility]23 Pat Name: Chau Monroe Department: Room: Gender: Male Fowl Blood Tester: : 1945 Requested By: Surekha Worthington Order Number: [id number] Fernandez MD: Rasheed Nicholas M.D. Measurements Intervals [place] Rate: 52 P: 39 NH: 208 QRS: -66 QRSD: 140 T: 29 QT: 447 QTc: 419 Interpretive Statements SINUS BRADYCARDIA RIGHT BUNDLE BRANCH BLOCK [120+ ms QRS DURATION, UPRIGHT V1, 40+ ms S IN I/aVL/V4/V5/V6] LEFT ANTERIOR FASCICULAR BLOCK [QRS AXIS <= -45, QR IN I, RS IN II] Compared to ECG 11/24/2023 02:46:52 Sinus rhythm no longer present Electronically Signed On 07-25-2024 11:24:31 SHIPPING HELPER by Rasheed Nicholas M.D. [id number]
--- NOTE | 2024-07-23 09:12 | XR_ITS ---
WS: [id number] Exam: XR chest 1V portable [id number] Date/Time of Exam: 07/23/2024 9:34 AM Reason For Exam: chest pain Comparison 11/23/2023. The lungs are fully inflated and clear. Heart size top limits normal. Signs of previous CABG surgery. No pleural effusions. Bony structures are intact. XR/XR chest 1V portable [id number] IMPRESSION: 1. No acute cardiopulmonary finding.
[2024-07-23 09:32] LABS: Basophils % 0.4 %; Eosinophils # 0.1 10^3/uL (0.0-0.8); Eosinophils % 1.7 %; Hematocrit 45.3 % (37-53); Lymphocytes % 28.7 %; Mean Corpuscular HGB Conc 32.9 g/dL (30-55); Mean Corpuscular Hemoglobin 29.8 pg (27-33); Mean Corpuscular Volume 90.6 fl (82-101); Mean Platelet Volume 9.4 fL (7.4-10.4); Monocytes # 0.7 10^3/uL (0.2-0.9); Monocytes % 9.9 %; Neutrophils # 4.04 10^3/uL (1.8-7.7); Neutrophils % 58.9 %; Nucleated Red Blood Cells % 0 %; Platelet Count 209 10^3/cmm (157-399); Red Cell Distribution Width 12.7 % (12.1-15.1); White Blood Count 6.87 10^3/uL (3.29-11.43)
--- NOTE | 2024-07-23 09:41 | ECG_ITS ---
[facility] Date: [facility]24[facility]23 Pat Name: Chau Monroe Department: Room: Gender: Male Cost Controller: : 1945 Requested By: Surekha Worthington Order Number: [id number] Fernandez MD: Rasheed Nicholas M.D. Measurements Intervals [place] Rate: 57 P: 26 GA: 200 QRS: -70 QRSD: 139 T: -9 QT: 434 QTc: 425 Interpretive Statements SINUS BRADYCARDIA RIGHT BUNDLE BRANCH BLOCK [120+ ms QRS DURATION, UPRIGHT V1, 40+ ms S IN I/aVL/V4/V5/V6] LEFT ANTERIOR FASCICULAR BLOCK [QRS AXIS <= -45, QR IN I, RS IN II] Compared to ECG 07/23/2024 09:02:44 No significant changes Electronically Signed On 07-27-2024 13:49:24 SALARY MANAGER by Rasheed Nicholas M.D. [id number]
--- NOTE | 2024-07-23 09:41 | ED_ITS ---
Documented by User: AMAIRANI Richard 07/23/24 12:37 HPI - Chest Pain 2 General: Chief Complaint: Chest Pain Stated Complaint: cp Time Seen by Provider: 07/23/24 09:12 Source: patient Mode of arrival: ambulatory Limitations: no limitations History of Present Illness: Patient is a nice 78-year-old male with a history of COPD, CABG , 2 previous cardiac stents-2000 and 2004, hypothyroidism, diabetes, hyperlipidemia here for complaints of chest pain. Patient states he began noticing chest pain across my chest yesterday while he was outside picking up limbs/leaves. Patient states he went inside to rest but chest pain persisted. It did seem to somewhat ease off and wax and wane throughout yesterday but states he woke up today with significant discomfort thus prompting his emergency evaluation. He feels like pain is throughout his chest and radiating into his bilateral arms and neck. 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 Patient not complaining of any shortness of breath or difficulty breathing. He does have nitroglycerin to take at home but he did not take any of this. Upon arrival he clinically appears no acute distress but is rating his chest pain at a 7?8/10. States over the past week he has felt like his heart is fatigued . Has not had recent cardiac stress testing. MD complaint: chest pain Pertinent past history: coronary artery disease and CABG Timing of current episode: episodic and constant Onset: during exertion Pain location: substernal Pain radiation: right arm and left arm Severity: severe Pain scale (0-10): 7 Quality: aching Relieving factors: nothing Exacerbating factors: nothing Associated symptoms: Reports no associated symptoms; Deny abdominal pain, dyspnea, fever(s), nausea, palpitations, syncope or vomiting Treatment prior to arrival: none Risk Factors: Thoracic aortic dissection risk factors: none Related Data Home Medications Medication Instructions Recorded Confirmed carvedilol 25 mg tablet 25 mg PO BID 10/24/19 07/23/24 clopidogrel 75 mg tablet 75 mg PO DAILY 10/24/19 07/23/24 spironolactone 25 mg tablet 25 mg PO DAILY 10/24/19 07/23/24 cholecalciferol (vitamin D3) 10 800 unit PO DAILY 02/12/20 07/23/24 mcg (400 unit) tablet (Vitamin D3) polyethylene glycol 3350 17 See Rx Instructions .Route .COMPLEX 02/07/22 07/23/24 gram/dose oral powder docusate sodium 100 mg capsule 100 mg PO BID PRN Constipation 11/24/23 07/23/24 (Colace) famotidine 20 mg tablet 20 mg PO BID 11/24/23 07/23/24 furosemide 20 mg tablet 20 mg PO QAM PRN Edema 11/24/23 07/23/24 levothyroxine 50 mcg tablet 50 mcg PO QAM 11/24/23 07/23/24 metformin 500 mg tablet,extended 500 mg PO BID 11/24/23 07/23/24 release 24 hr mometasone 200 mcg/actuation HFA 1 puff inhalation BID 11/24/23 07/23/24 aerosol inhaler multivitamin 1 tab PO QAM 11/24/23 07/23/24 olodaterol 2.5 mcg/actuation mist 2 puff inhalation DAILY 11/24/23 07/23/24 for inhalation polyvinyl alcohol 1.4 % eye drops 1 drp ophthalmic (eye) BID 11/24/23 07/23/24 simvastatin 80 mg tablet 40 mg PO QPM 11/24/23 07/23/24 Previous Rx's Medication Instructions Recorded left velcro wrist brace #1 ea 03/30/23 aspirin 81 mg tablet,delayed 81 mg PO DAILY 30 days #30 tabs 07/25/24 release nitroglycerin 0.4 mg sublingual 0.4 mg sublingual Q5M PRN Chest 07/25/24 tablet (Nitrostat) Pain #30 tabs sildenafil 100 mg tablet See Rx Instructions .Route 07/25/24 .COMPLEX PRN Erectile Dysfunction #1 tab Allergies Allergy/AdvReac Type Severity Reaction Status Date / Time atorvastatin [From Lipitor] Allergy muslce Verified 11/23/23 20:42 weakness Review of Systems 2 Const: Denies: fever(s), chills, body aches, fatigue or malaise Eyes: Denies: change in vision or blurry vision Card: Reports: chest pain; Denies: palpitations, irregular heart rhythm, edema, swelling of feet/ankles, lightheadedness, syncope, pre-syncope, orthopnea, leg pain with exertion or acrocyanosis Resp: Denies: dyspnea, productive cough, non-productive cough or pain on inspiration GI: Denies: abdominal pain, nausea, vomiting, heartburn or diarrhea : Denies: flank pain, difficulty urinating, dysuria or urinary frequency Musc: Denies: neck pain, back pain, extremity swelling, joint pain, joint swelling or joint redness Skin/Breast: Denies: rash Neuro: Denies: headache(s), numbness in extremities, weakness in extremities, sensory changes or dizziness PFSH ED 2 PFSH: Medical History (Updated 07/26/24 @ 00:00 by POLO Segal) Hypoxemia COPD with acute exacerbation Acute respiratory failure with hypoxia COVID-19 Left lower lobe community-acquired pneumonia. Secondary bacterial pneumonia cannot be completely ruled out Erectile dysfunction Elevated PSA COPD (chronic obstructive pulmonary disease) CHF (congestive heart failure) Echocardiogram 07/23/2024: LVEF 60%, grade 1 diastolic function. Hypertension Hyperlipidemia Diabetes BPH loc w urin obs/LUTS Surgical History (Updated 07/26/24 @ 00:00 by POLO Segal) Status post left inguinal hernia repair (01/28/22) History of umbilical hernia repair S/P CABG (coronary artery bypass graft) Stented coronary artery S/P angioplasties S/P tonsillectomy History of thyroid surgery Family History Mother , 70's No problems noted. Father , 73 No problems noted. Social History Smoking and tobacco/nicotine status: former use of tobacco/nicotine Alcohol intake: never Substance/Drug Use: never Marital status: service: Yes Current occupational status: retired Physical Exam 2 Const: COMMON NORMALS: no acute distress, patient oriented x3, no limitations, alert and well nourished GENERAL APPEARANCE: cooperative O RIENTATION/CONSCIOUSNESS: Yes awake, Yes oriented to person, Yes oriented to place and Yes oriented to time HENMT: COMMON NORMALS: normocephalic and atraumatic HEAD & SCALP: n ormocephalic and atraumatic Neck/C-Spine: COMMON NORMALS: full ROM, no lymphadenopathy, supple and no meningeal signs Chest: COMMONS NORMALS: normal inspection of the chest and normal palpation of entire chest wall Resp: COMMON NORMALS: normal respiratory effort and clear to auscultation bilaterally AUSCULTATION: clear to auscultation bilaterally Cardio: COMMON NORMALS: regular rate and regular rhythm RATE: regular rate RHYTHM: regular rhythm GI: COMMON NORMALS: Normal to inspection, nondistended, normoactive bowel sounds present, Soft to palpation, non-tender, No hepatosplenomegaly present and no masses PALPATION: Yes Soft to palpation and Yes No hepatosplenomegaly present : COMMON NORMALS: Yes no CVA tenderness BLADDER/KIDNEY EXAM: Yes no CVA tenderness Back/Pelvis: COMMON NORMALS: no CVA tenderness and thoracic and lumbar spine normal to inspection Extremity: COMMON NORMALS: normal to inspection NARRATIVE EXTREMITY EXAM: UE pulses normal GENERAL: Yes normal exam except as noted Neuro: COMMON NORMALS: patient oriented x3, moves all extremities, no focal motor deficits and no sensory deficits noted SENSORIUM/ORIENTATION: Yes alert, Yes oriented to person, Yes oriented to place and Yes oriented to time MENINGEAL SIGNS: Yes no meningeal signs Skin: COMMON NORMALS: no rashes or lesions noted GENERAL SKIN EXAM: no rashes or lesions noted Course 2 Consultations: Consultation #1: Dr. Lu-recommend admit to hospitalist and he will consult Consultation #2: Dr. Calderon-accepts hospitalization Vital Signs: Vital signs: Vital Signs Temperature 97.3 F L 07/25/24 08:00 Pulse Rate 73 07/25/24 12:06 Respiratory Rate 17 07/25/24 12:06 Blood Pressure 116/82 07/25/24 12:06 Pulse Oximetry 93 07/25/24 12:06 Oxygen Delivery Me thod Room Air 07/25/24 08:00 MDM - Chest Pain Medical Decision Making Patient is a extremely pleasant 78-year-old male with significant cardiac risk factors and known cardiac disease with previous CABG and cardiac stenting here for chest pain that began with exertion yesterday. He has felt fatigued over the past week. Myself as well as Dr. Hart have evaluated this patient. I think it is reasonable to keep him for further cardiology evaluation. I spoken to biogeographer Dr. Lu who is graciously willing to consult on patient. Dr. Calderon will admit for hospitalist services. Medical Records I reviewed the patient's medical records. Lab Data I reviewed the patient's lab results. 07/25/24 03:34 07/25/24 03:34 Radiology Impressions Chest X-Ray 07/23/24 09:12 IMPRESSION: 1. No acute cardiopulmonary finding. Laboratory Results WBC 6.87 10^3/uL (3.29-11.43) 07/23/24 09: RBC 5.00 10^6/uL (3.85-5.65) 07/23/24 09:27 Hgb 14.90 g/dL (11.27-16.99) 07/23/24 09: Hct 45.3 % (37-53) 07/23/24 09:27 MCV 90.6 fl (82-101) 07/23/24 09: MCH 29.8 pg (27-33) 07/23/24 09: MCHC 32.9 g/dL (30-55) 07/23/24 09:27 RDW 12.7 % (12.1-15.1) 07/23/24 09:27 Plt Count 209 10^3/cmm (157-399) 07/23/24 09:27 MPV 9.4 fL (7.4-10.4) 07/23/24 09:27 Neut % (Auto) 58.9 % 07/23/24 09:27 Lymph % (Auto) 28.7 % 07/23/24 09:27 Hamlin % (Auto) 9.9 % 07/23/24 09:27 Eos % (Auto) 1.7 % 07/23/24 09:27 Baso % (Auto) 0.4 % 07/23/24 09:27 Neut # (Auto) 4.04 10^3/uL (1.8-7.7) 07/23/24 09: Lymph # (Auto) 2.0 10^3/uL (0.8-4.8) 07/23/24 09:27 Hamlin # (Auto) 0.7 10^3/uL (0.2-0.9) 07/23/24 09: Eos # (Auto) 0.1 10^3/uL (0.0-0.8) 07/23/24 09:27 Baso # (Auto) 0.0 10^3/uL (0.0-0.1) 07/23/24 09:27 Nucleated RBC % (auto) 0 % 07/23/24 09:27 Nucleated RBCs # 0.0 /100WBC 07/23/24 09:27 ESR 6 mm/hr (0-10) 07/23/24 09:27 Sodium 136 mmol/L (136-145) 07/23/24 09:27 Potassium 4.5 mmol/L (3.5-5.1) 07/23/24 09:27 Chloride 99 mmol/L (98-107) 07/23/24 09:27 Carbon Dioxide 24 mmol/L (22-29) 07/23/24 09:27 Anion Gap 17.5 (5-19) 07/23/24 09:27 BUN 13 mg/dL (8-23) 07/23/24 09:27 Creatinine 1.0 mg/dL (0.7-1.2) 07/23/24 09:27 GFR Calculation Not Reportable 07/23/24 09:27 Glucose 166 mg/dL (65-115) H 07/23/24 09:27 Estimat Average Glucose 143 07/23/24 09:27 Hemoglobin A1c 6.6 % (4.0-6.0) H 07/23/24 09:27 Calculated Osmolality 286 mOsm/kg (285-295) 07/23/24 09:27 Calcium 9.3 mg/dL (8.5-10.5) 07/23/24 09:27 Total Bilirubin 0.5 mg/dL (0.15-1.2) 07/23/24 09:27 AST 21 U/L (0-40) 07/23/24 09:27 ALT 14 U/L (0-41) 07/23/24 09:27 Alkaline Phosphatase 66 U/L (40-130) 07/23/24 09:27 Creatine Kinase 88 U/L (39-308) 07/23/24 09:27 Troponin T Baseline 17 ng/L (0-15) H 07/23/24 09:27 Troponin T 120 Minute 15.93 ng/L (0-15) H 07/23/24 11:23 Delta Troponin T -1.07 ABS# (0-10) L 07/23/24 11:23 C-Reactive Protein 3.0 mg/L (0.0-4.9) 07/23/24 09:27 NT-Pro-B Natriuret Pep 361 pg/mL (0-450) 07/23/24 09:27 NT-Pro-B Natriuret Pep 374 pg/mL (0-450) 07/23/24 09:27 Total Protein 8.0 g/dL (6.6-8.7) 07/23/24 09:27 Albumin 4.6 g/dL (3.5-5.2) 07/23/24 09:27 Globulin 3.4 g/dL (1.3-4.6) 07/23/24 09:27 Triglycerides 128 mg/dL (0-150) 07/23/24 11:23 Cholesterol 146 mg/dL (0-200) 07/23/24 11:23 LDL Cholesterol, Calc 80 mg/dL (50-129) 07/23/24 11:23 HDL Cholesterol 40 mg/dL (60-100) L 07/23/24 11:23 LDL/HDL Ratio 2.00 RATIO (0.00-3.22) 07/23/24 11:23 Cholesterol/HDL Ratio 3.65 mg/dL (1.0-5.00) 07/23/24 11:23 TSH 5.85 uIU/mL (0.27-4.20) H 07/23/24 11:23 All radiology interpretation(s) finalized by discharge Discharge Plan Discharge Patient Disposition: Admitted As Inpatient Admit Provider: Boni Calderon Clinical Impression: Chest pain Condition: Stable Discharge Diet: Cardiac Discharge Activity: Resume usual activity Coding Level of Care Code ED Exercise Instructor for Chg Fwd Documented by User: Jeff Hart DO 07/29/24 15:57 HPI - Chest Pain 2 General: Chief Complaint: Chest Pain Stated Complaint: cp Time Seen by Provider: 07/23/24 09:12 Related Data Home Medications Medication Instructions Recorded Confirmed carvedilol 25 mg tablet 25 mg PO BID 10/24/19 07/23/24 clopidogrel 75 mg tablet 75 mg PO DAILY 10/24/19 07/23/24 spironolactone 25 mg tablet 25 mg PO DAILY 10/24/19 07/23/24 cholecalciferol (vitamin D3) 10 800 unit PO DAILY 02/12/20 07/23/24 mcg (400 unit) tablet (Vitamin D3) polyethylene glycol 3350 17 See Rx Instructions .Route .COMPLEX 02/07/22 07/23/24 gram/dose oral powder docusate sodium 100 mg capsule 100 mg PO BID PRN Constipation 11/24/23 07/23/24 (Colace) famotidine 20 mg tablet 20 mg PO BID 11/24/23 07/23/24 furosemide 20 mg tablet 20 mg PO QAM PRN Edema 11/24/23 07/23/24 levothyroxine 50 mcg tablet 50 mcg PO QAM 11/24/23 07/23/24 metformin 500 mg tablet,extended 500 mg PO BID 11/24/23 07/23/24 release 24 hr mometasone 200 mcg/actuation HFA 1 puff inhalation BID 11/24/23 07/23/24 aerosol inhaler multivitamin 1 tab PO QAM 11/24/23 07/23/24 olodaterol 2.5 mcg/actuation mist 2 puff inhalation DAILY 11/24/23 07/23/24 for inhalation polyvinyl alcohol 1.4 % eye drops 1 drp ophthalmic (eye) BID 11/24/23 07/23/24 simvastatin 80 mg tablet 40 mg PO QPM 11/24/23 07/23/24 Previous Rx's Medication Instructions Recorded left velcro wrist brace #1 ea 03/30/23 aspirin 81 mg tablet,delayed 81 mg PO DAILY 30 days #30 tabs 07/25/24 release nitroglycerin 0.4 mg sublingual 0.4 mg sublingual Q5M PRN Chest 07/25/24 tablet (Nitrostat) Pain #30 tabs sildenafil 100 mg tablet See Rx Instructions .Route 07/25/24 .COMPLEX PRN Erectile Dysfunction #1 tab Allergies Allergy/AdvReac Type Severity Reaction Status Date / Time atorvastatin [From Lipitor] Allergy muslce Verified 11/23/23 20:42 weakness [facility] ED 2 [facility]: Medical History (Updated 07/26/24 @ 00:00 by POLO Segal) Hypoxemia COPD with acute exacerbation Acute respiratory failure with hypoxia COVID-19 Left lower lobe community-acquired pneumonia. Secondary bacterial pneumonia cannot be completely ruled out Erectile dysfunction Elevated PSA COPD (chronic obstructive pulmonary disease) CHF (congestive heart failure) Echocardiogram 07/23/2024: LVEF 60%, grade 1 diastolic function. Hypertension Hyperlipidemia Diabetes BPH loc w urin obs/LUTS Surgical History (Updated 07/26/24 @ 00:00 by POLO Segal) Status post left inguinal hernia repair (01/28/22) History of umbilical hernia repair S/P CABG (coronary artery bypass graft) Stented coronary artery S/P angioplasties S/P tonsillectomy History of thyroid surgery Family History Mother , 70's No problems noted. Father , 73 No problems noted. Social History Smoking and tobacco/nicotine status: former use of tobacco/nicotine Alcohol intake: never Substance/Drug Use: never Marital status: service: Yes Current occupational status: retired Course 2 Vital Signs: Vital signs: Vital Signs Temperature 97.3 F L 07/25/24 08:00 Pulse Rate 73 07/25/24 12:06 Respiratory Rate 17 07/25/24 12:06 Blood Pressure 116/82 07/25/24 12:06 Pulse Oximetry 93 07/25/24 12:06 Oxygen Delivery Me thod Room Air 07/25/24 08:00 MDM - Chest Pain Medical Decision Making Patient is a extremely pleasant 78-year-old male with significant cardiac risk factors and known cardiac disease with previous CABG and cardiac stenting here for chest pain that began with exertion yesterday. He has felt fatigued over the pastweek. Myself as well as Dr. Hart have evaluated this patient. I think it is reasonable to keep him for further cardiology evaluation. I spoken to biogeographer Dr. Lu who is graciously willing to consult on patient. Dr. Calderon will admit for hospitalist services. Chart reviewed and patient discussed with midlevel. Agree with assessment and plan. Lab Data 07/25/24 03:34 07/25/24 03:34 Radiology Impressions Chest X-Ray 07/23/24 09:12 IMPRESSION: 1. No acute cardiopulmonary finding. Laboratory Results WBC 6.87 10^3/uL (3.29-11.43) 07/23/24 09: RBC 5.00 10^6/uL (3.85-5.65) 07/23/24 09: Hgb 14.90 g/dL (11.27-16.99) 07/23/24 09: Hct 45.3 % (37-53) 07/23/24 09: MCV 90.6 fl (82-101) 07/23/24 09: MCH 29.8 pg (27-33) 07/23/24 09: MCHC 32.9 g/dL (30-55) 07/23/24 09: RDW 12.7 % (12.1-15.1) 07/23/24 09: Plt Count 209 10^3/cmm (157-399) 07/23/24 09: MPV 9.4 fL (7.4-10.4) 07/23/24 09:27 Neut % (Auto) 58.9 % 07/23/24 09: Lymph % (Auto) 28.7 % 07/23/24 09: Hamlin % (Auto) 9.9 % 07/23/24 09:27 Eos % (Auto) 1.7 % 07/23/24 09: Baso % (Auto) 0.4 % 07/23/24 09: Neut # (Auto) 4.04 10^3/uL (1.8-7.7) 07/23/24 09: Lymph # (Auto) 2.0 10^3/uL (0.8-4.8) 07/23/24 09: Hamlin # (Auto) 0.7 10^3/uL (0.2-0.9) 07/23/24 09: Eos # (Auto) 0.1 10^3/uL (0.0-0.8) 07/23/24 09: Baso # (Auto) 0.0 10^3/uL (0.0-0.1) 07/23/24 09: Nucleated RBC % (auto) 0 % 07/23/24 09: Nucleated RBCs # 0.0 /100WBC 07/23/24 09: ESR 6 mm/hr (0-10) 07/23/24 09: Sodium 136 mmol/L (136-145) 01/28/25 09:27 Potassium 4.5 mmol/L (3.5-5.1) 07/23/24 09:27 Chloride 99 mmol/L (98-107) 07/23/24 09:27 Carbon Dioxide 24 mmol/L (22-29) 07/23/24 09:27 Anion Gap 17.5 (5-19) 07/23/24 09:27 BUN 13 mg/dL (8-23) 07/23/24 09:27 Creatinine 1.0 mg/dL (0.7-1.2) 07/23/24 09:27 GFR Calculation Not Reportable 07/23/24 09:27 Glucose 166 mg/dL (65-115) H 07/23/24 09:27 Estimat Average Glucose 143 07/23/24 09:27 Hemoglobin A1c 6.6 % (4.0-6.0) H 07/23/24 09:27 Calculated Osmolality 286 mOsm/kg (285-295) 07/23/24 09:27 Calcium 9.3 mg/dL (8.5-10.5) 07/23/24 09:27 Total Bilirubin 0.5 mg/dL (0.15-1.2) 07/23/24 09:27 AST 21 U/L (0-40) 07/23/24 09:27 ALT 14 U/L (0-41) 07/23/24 09:27 Alkaline Phosphatase 66 U/L (40-130) 07/23/24 09:27 Creatine Kinase 88 U/L (39-308) 07/23/24 09:27 Troponin T Baseline 17 ng/L (0-15) H 07/23/24 09:27 Troponin T 120 Minute 15.93 ng/L (0-15) H 07/23/24 11:23 Delta Troponin T -1.07 ABS# (0-10) L 07/23/24 11:23 C-Reactive Protein 3.0 mg/L (0.0-4.9) 07/23/24 09:27 NT-Pro-B Natriuret Pep 361 pg/mL (0-450) 07/23/24 09:27 NT-Pro-B Natriuret Pep 374 pg/mL (0-450) 07/23/24 09:27 Total Protein 8.0 g/dL (6.6-8.7) 07/23/24 09:27 Albumin 4.6 g/dL (3.5-5.2) 07/23/24 09:27 Globulin 3.4 g/dL (1.3-4.6) 07/23/24 09:27 Triglycerides 128 mg/dL (0-150) 07/23/24 11:23 Cholesterol 146 mg/dL (0-200) 07/23/24 11:23 LDL Cholesterol, Calc 80 mg/dL (50-129) 07/23/24 11:23 HDL Cholesterol 40 mg/dL (60-100) L 07/23/24 11:23 LDL/HDL Ratio 2.00 RATIO (0.00-3.22) 07/23/24 11:23 Cholesterol/HDL Ratio 3.65 mg/dL (1.0-5.00) 07/23/24 11:23 TSH 5.85 uIU/mL (0.27-4.20) H 07/23/24 11:23 Discharge Plan Discharge Patient Disposition: Admitted As Inpatient Admit Provider: Boni Calderon Clinical Impression: Chest pain Condition: Stable Discharge Diet: Cardiac Discharge Activity: Resume usual activity Coding Level of Care Code ED Exercise Instructor for Adonay Hernandez
[2024-07-23] MEDS: nitroglycerin 1 gm/inch oint Pkt 0.5 INCH TOPICAL (09:49)
[2024-07-23 09:53] LABS: Troponin(5th) Baseline 17 ng/L (0-15)
[2024-07-23 10:00] LABS: Alanine Aminotransferase 14 U/L (0-41); Albumin Level 4.6 g/dL (3.5-5.2); Alkaline Phosphatase 66 U/L (40-130); Anion Gap 17.5 (5-19); Aspartate Amino Transferase 21 U/L (0-40); Blood Urea Nitrogen 13 mg/dL (8-23); Calcium 9.3 mg/dL (8.5-10.5); Carbon Dioxide 24 mmol/L (22-29); Chloride 99 mmol/L (98-107); Creatinine Clr Calc Pharmacy 75.0607; Globulin 3.4 g/dL (1.3-4.6); Glucose 166 mg/dL (65-115); NT Pro B Type Natriuretic Pept 361 pg/mL (0-450); Osmolality Calculated 286 mOsm/kg (285-295); Potassium 4.5 mmol/L (3.5-5.1); Sodium 136 mmol/L (136-145); Total Bilirubin 0.5 mg/dL (0.15-1.2)
[2024-07-23] MEDS: morphine 4 mg/mL SDV 1 mL IVP (11:06)
--- NOTE | 2024-07-23 11:16 | ECG_ITS ---
[employer] Test Date: 2024-07-23 Pat Name: Chau Monroe Department: Room: Gender: Male Mailer: : 1945 Requested By: Surekha Worthington Order Number: [id number] Presley MD: Rasheed Nicholas M.D. Measurements Intervals [place] Rate: 57 P: 93 SD: 217 QRS: -76 QRSD: 141 T: 73 QT: 442 QTc: 431 Interpretive Statements SINUS BRADYCARDIA WITH FIRST DEGREE AV BLOCK WITH OCCASIONAL VENTRICULAR PREMATURE COMPLEXES RIGHT BUNDLE BRANCH BLOCK [120+ ms QRS DURATION, UPRIGHT V1, 40+ ms S IN I/aVL/V4/V5/V6] LEFT ANTERIOR FASCICULAR BLOCK [QRS AXIS <= -45, QR IN I, RS IN II] Compared to ECG 07/23/2024 09:47:30 Ventricular premature complex(es) now present First degree AV block now present Electronically Signed On 07-27-2024 13:49:14 ADMINISTRATION PHYSICIAN by Rasheed Nicholas M.D. [email or web address]
[2024-07-23 11:51] LABS: Troponin 5 2HR 15.93 ng/L (0-15)
[2024-07-23 11:54] LABS: Troponin 5 2HR Delta -1.07 ABS# (0-10)
--- NOTE | 2024-07-23 12:39 | P.CONIM_ITS ---
<Statement entered by Rasheed Nicholas M.D - 07/24/24 20:27> Patient was evaluated and cared for in conjunction with an advanced practice practitioner. I personally examined the patient and reviewed the chart and all pertinent data including imaging, telemetry, and laboratory results. I discussed the patient in detail with the advanced practice practitioner. Please see their note for complete consult note, results and agreed upon plan of care for the patient. Patient has presented with unstable angina. We will proceed with coronary angiogram with possible PCI. NPO past midnight. Start on nitro gtt and heparin gtt. Dual antiplatelet therapy. GENERAL: Patient is alert and oriented HEART: Regular S1 and S2 LUNGS: Clear to auscultation bilaterally EXTREMITIES: Lower extremities with no edema Providers/Reason For Consult 2 Consulting Physician/Specialty*: Dr Nicholas, cardiology Reason for Consult*: chest pain, CAD hx of CABG Requesting Physician: Dr Hart Attending Physician: Dr Calderon Primary Care Provider: Mesha Romero MD History of Present Illness History of Present Illness Chau Monroe is a 78 year old male with past medical history of COPD, CAD status post CABG x4 in 1997 with subsequent stenting in unknown vessels approximately 2000 and 2004, diabetes, hyperlipidemia, hypothyroidism. He presented to the ED this morning with chest pain. He noticed chest pain yesterday after picking up some limbs in the yard it persisted for about 2 hours yesterday, returned in the middle of the night and then began again this morning about 8:00. The chest pain felt constant this morning, located in the substernal chest, radiating to the bilateral arms and bilateral neck. He did not have any shortness of breath, nausea or vomiting or diaphoresis. He does note feeling low energy levels in the last 2 months, denies lower extremity edema or weight gain. He has not noticed much improvement in the chest pain with the administration of Nitropaste and morphine. Baseline troponin 17 -> 15. BNP 361. He appears euvolemic. Blood pressure is well-controlled. He did take his morning medications about 0730 but has not had any other food. He has been on Plavix and taken his doses faithfully. 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 He also takes carvedilol 25 mg twice a day, spironolactone 25 mg daily levothyroxine 50 mcg daily metformin 500 mg twice daily, simvastatin 80 mg daily. He has not required any as needed Lasix. EKG in the ER showed nonspecific T wave changes. No recent cardiac testing. [facility] Review of Systems 2 Const: Denies: fever(s), chills, change in weight, fatigue or diaphoresis Eyes: Denies: change in vision ENMT: Denies: epistaxis Card: Reports: chest pain; Denies: palpitations, irregular heart rhythm, edema, syncope, pre-syncope, dyspnea on exertion, orthopnea or leg pain with exertion Resp: Denies: dyspnea, productive cough or wheezing GI: Denies: nausea, vomiting, hematemesis, hematochezia or melena : Denies: hematuria Musc: Denies: extremity swelling Gomez/Lymph: Denies: easy bruising or easy bleeding Medications/Allergies Home Medications Medication Instructions Recorded Confirmed Last Taken Type carvedilol 25 mg tablet 25 mg PO BID 10/24/19 07/23/24 07/23/24 06:00 History clopidogrel 75 mg tablet 75 mg PO DAILY 10/24/19 07/23/24 07/23/24 06:00 History spironolactone 25 mg tablet 25 mg PO DAILY 10/24/19 07/23/24 07/23/24 History cholecalciferol (vitamin D3) 10 800 unit PO DAILY 02/12/20 07/23/24 11/23/23 History mcg (400 unit) tablet (Vitamin D3) nitroglycerin 0.4 mg sublingual 0.4 mg sublingual Q5M PRN Chest 02/12/20 07/23/24 Unknown History tablet (Nitrostat) Pain polyethylene glycol 3350 17 See Rx Instructions .Route .COMPLEX 02/07/22 07/23/24 11/23/23 History gram/dose oral powder left velcro wrist brace #1 ea 03/30/23 07/23/24 Unknown Rx docusate sodium 100 mg capsule 100 mg PO BID PRN Constipation 11/24/23 07/23/24 Unknown History (Colace) famotidine 20 mg tablet 20 mg PO BID 11/24/23 07/23/24 07/23/24 06:00 History furosemide 20 mg tablet 20 mg PO QAM PRN Edema 11/24/23 07/23/2425 07:00 History levothyroxine 50 mcg tablet 50 mcg PO QAM 11/24/23 07/23/24 07/23/24 06:00 History metformin 500 mg tablet,extended 500 mg PO BID 11/24/23 07/23/24 07/22/24 History release 24 hr mometasone 200 mcg/actuation HFA 1 puff inhalation BID 11/24/23 07/23/24 07/23/24 06:00 History aerosol inhaler multivitamin 1 tab PO QAM 11/24/23 07/23/24 07/22/24 History olodaterol 2.5 mcg/actuation mist 2 puff inhalation DAILY 11/24/23 07/23/24 07/23/24 06:00 History for inhalation polyvinyl alcohol 1.4 % eye drops 1 drp ophthalmic (eye) BID 11/24/23 07/23/24 07/22/24 History sildenafil 100 mg tablet See Rx Instructions .Route 11/24/23 07/23/24 Unknown History .COMPLEX PRN Erectile Dysfunction simvastatin 80 mg tablet 40 mg PO QPM 11/24/23 07/23/24 07/22/24 History Allergies Allergy/AdvReac Type Severity Reaction Status Date / Time atorvastatin [From Lipitor] Allergy muslce Verified 11/23/23 20:42 weakness PFSH Acute 2 PFSH: Medical History (Updated 07/23/24 @ 13:48 by DANYA Cash) Hypoxemia COPD with acute exacerbation Acute respiratory failure with hypoxia COVID-19 Left lower lobe community-acquired pneumonia. Secondary bacterial pneumonia cannot be completely ruled out Erectile dysfunction Elevated PSA COPD (chronic obstructive pulmonary disease) CHF (congestive heart failure) Specifics unknown. Currently compensated. Hypertension Hyperlipidemia Diabetes BPH loc w urin obs/LUTS Surgical History Status post left inguinal hernia repair (01/28/22) History of umbilical hernia repair S/P CABG (coronary artery bypass graft) Stented coronary artery S/P angioplasties S/P tonsillectomy History of thyroid surgery Family History Mother , 70's No problems noted. Father , 73 No problems noted. Social History Smoking and tobacco/nicotine status: former use of tobacco/nicotine Alcohol intake: never Substance/Drug Use: never Marital status: service: Yes Current occupational status: retired Vitals/I&O/Wt Last Vital Signs Temp 97.3 F L 07/23/24 09:07 Pulse 75 07/23/24 12:33 Resp 16 07/23/24 12:33 BP 131/80 07/23/24 12:33 Pulse Ox 95 07/23/24 10:36 O2 Del Method Room Air 07/23/24 09:07 Weight last 48 hrs Weight 239 lb Physical Exam 2 Const: COMMON NORMALS: no acute distress and patient oriented x3 GENERAL APPEARANCE: cooperative and comfortable ORIENTATION/CONSCIOUSNESS: Yes awake, Yes oriented to person, Yes oriented to place and Yes oriented to time Chest: COMMONS NORMALS: normal inspection of the chest and normal palpation of entire chest wall CHEST: Yes Symmetrical chest wall rise Resp: COMMON NORMALS: normal respiratory effort, No retractions, No use of accessory muscles and clear to auscultation bilaterally EFFORT & INSPECTION: Yes symmetric chest movement AUSCULTATION: clear to auscultation bilaterally Cardio: COMMON NORMALS: regular rate, regular rhythm, S1 normal heart sound present, S2 normal heart sound present, No gallops present (Cardio), No clicks present (Cardio), No murmurs present (Cardio) and No rub (Cardio) RATE: r egular rate RHYTHM: regular rhythm HEART SOUNDS: S1 normal heart sound present and S2 normal heart sound present PERIPHERAL PULSES: radial pulses present Extremity: COMMON NORMALS: no pedal edema Neuro: COMMON NORMALS: patient oriented x3 and moves all extremities S ENSORIUM/ORIENTATION: Yes oriented to person, Yes oriented to place and Yes oriented to time Data 07/23/24 09:27 07/23/24 09:27 A&P Assessment and plan (1) Chest pain: Qualifiers: Chest pain type: unspecified Qualified Code(s): R07.9 - Chest pain, unspecified (2) CHF (congestive heart failure): (3) Hypertension: Qualifiers: Hypertension type: primary hypertension Qualified Code(s): I10 - Essential (primary) hypertension (4) Diabetes: Qualifiers: Diabetes mellitus type: type 2 Diabetes mellitus prison insulin use: without prison use Diabetes mellitus complication status: with hyperglycemia Qualified Code(s): E11.65 - Type 2 diabetes mellitus with hyperglycemia (5) Hyperlipidemia: Plan Nonspecific EKG changes, negative troponin so far. However given the history of CABG x 4 in 1997 with subsequent stenting, with unstable angina starting yesterday, will plan for coronary angiogram either this evening or tomorrow. Will start him on heparin protocol for ACS and nitroglycerin infusion for chest pain, uptitrate per protocol. Will order echocardiogram. 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
--- NOTE | 2024-07-23 12:39 | USCV_ITS ---
Chau Monroe Age: 78 Gender: M : 1945 Exam Date: 07/23/2024 15:20 Ordering Phys: Gwen Arambula Technologist: Exam Location: [facility] – [place] Indication: cp BP: 115 / 74 HR: 68 Rhythm: Sinus Technical Quality: Adequate MEASUREMENTS (Male / Female) Normal Values 2D ECHO LV Diastolic Diameter PLAX 4.2 cm 4.2 - 5.9 / 3.9 - 5.3 cm IVS Diastolic Thickness 1.3 cm 0.6 - 1.0 / 0.6 - 0.9 cm IVS Systolic Thickness 1.8 cm LVPW Diastolic Thickness 1.8 cm 0.6 - 1.0 / 0.6 - 0.9 cm LVPW Systolic Thickness 2.0 cm LVOT Diameter 2.3 cm LV Ejection Fraction 2D Teich 45.6 % LV Ejection Fraction MOD 4C 56.0 % LV Ejection Fraction MOD 2C 51.9 % LV Ejection Fraction 2C AL 54.8 % LA Diameter 4.0 cm RA Systolic Volume 4C AL 49.3 ml RA Systolic Volume 4C MOD 47.2 ml Aorta at Sinotubular Diameter 3.1 cm M-MODE LA Ao Ratio MM 1.6 AV Cusp Separation MM 2.4 cm DOPPLER AV Peak Velocity 116.0 cm/s LVOT Peak Velocity 96.0 cm/s AV Area Cont Eq vti 3.6 cm squared AV Area Cont Eq pk 3.5 cm squared MV Area PHT 3.0 cm squared Mitral E to A Ratio 0.6 TV Peak Velocity 243.5 cm/s TR Peak Velocity 269.0 cm/s TR Peak Gradient 28.9 mmHg TV Peak E Velocity 84.0 cm/s PV Peak Velocity 104.0 cm/s FINDINGS Left Ventricle Normal left ventricular size, systolic function and wall thickness, with no regional wall motion abnormalities. Left ventricular ejection fraction is estimated at 60%. Grade I/IV diastolic dysfunction (abnormal relaxation filling pattern), normal to mildly elevated filling pressures. Right Ventricle The right ventricle is normal in size and function. Right Atrium The right atrium is normal in size. Left Atrium The left atrium is normal in size. Mitral Valve Structurally normal mitral valve without significant stenosis or prolapse. There is no mitral regurgitation. Aortic Valve Structurally normal aortic valve without significant sclerosis or stenosis. There is no aortic regurgitation. Tricuspid Valve Structurally normal tricuspid valve without significant stenosis or regurgitation. Pulmonary artery systolic pressure is normal. Pulmonic Valve Structurally normal pulmonic valve without significant stenosis. There is no pulmonic regurgitation. Pericardium Normal pericardium without effusion. Aorta Normal ascending aorta dimension. IVC The inferior vena cava appears normal. CONCLUSIONS Normal left ventricular size, systolic function and wall thickness, with no regional wall motion abnormalities. Left ventricular ejection fraction is estimated at 60%. Grade I/IV diastolic dysfunction (abnormal relaxation filling pattern), normal to mildly elevated filling pressures. No significant valve abnormalities. There is no pericardial effusion. Right atrial pressure is around 5 mm of mercury. Juve Burrell MD (Electronically Signed) Final Date: 24 July 2024 18:06 S
--- NOTE | 2024-07-23 13:24 | P.HP_ITS ---
Providers/Chief Complaint 2 Primary Care Provider: Mesha Romero MD Chief Complaint: cp History of Present Illness Chau Monroe is a 78 year old male with a history of CABG and 2 stents, presented with chest pain. The pain began after bending and lifting twigs outside yesterday. Initially, the patient experienced aching and discomfort across the top of the arms, across the chest, which occurred the same day after the activity. The pain subsided after an hour or two but recurred later that night, accompanied by arm aches. The patient reported a systolic blood pressure reading of 171 at home. The pain persisted the following morning, prompting concern due to its localized nature, he has never had pain like this before. The patient also mentioned back pain. The patient denies smoking since 1997. The patient is on a diet and takes Metformin 500 mg twice a day. Denies any fevers, chills, no cough no shortness of breath, no wheezing, denies using energy drinks, denies any weight loss supplements, denies any drug use Review of Systems 2 Const: Denies: fever(s) Card: Reports: chest pain Resp: Denies: dyspnea GI: Denies: abdominal pain Medications/Allergies Home Medications Medication Instructions Recorded Confirmed Last Taken Type carvedilol 25 mg tablet 25 mg PO BID 10/24/19 07/23/24 07/23/24 06:00 History clopidogrel 75 mg tablet 75 mg PO DAILY 10/24/19 07/23/24 07/23/24 06:00 History spironolactone 25 mg tablet 25 mg PO DAILY 10/24/19 07/23/24 07/23/24 History cholecalciferol (vitamin D3) 10 800 unit PO DAILY 02/12/20 07/23/24 11/23/23 History mcg (400 unit) tablet (Vitamin D3) nitroglycerin 0.4 mg sublingual 0.4 mg sublingual Q5M PRN Chest 02/12/20 07/23/24 Unknown History tablet (Nitrostat) Pain polyethylene glycol 3350 17 See Rx Instructions .Route .COMPLEX 02/07/22 07/23/24 11/23/23 History gram/dose oral powder left velcro wrist brace #1 ea 03/30/23 07/23/24 Unknown Rx docusate sodium 100 mg capsule 100 mg PO BID PRN Constipation 11/24/23 07/23/24 Unknown History (Colace) famotidine 20 mg tablet 20 mg PO BID 11/24/23 07/23/24 07/23/24 06:00 History furosemide 20 mg tablet 20 mg PO QAM PRN Edema 11/24/23 07/23/24 07/23/24 07:00 History levothyroxine 50 mcg tablet 50 mcg PO QAM 11/24/23 07/23/24 07/23/24 06:00 History metformin 500 mg tablet,extended 500 mg PO BID 11/24/23 07/23/24 07/22/24 History release 24 hr mometasone 200 mcg/actuation HFA 1 puff inhalation BID 11/24/23 07/23/24 07/23/24 06:00 History aerosol inhaler multivitamin 1 tab PO QAM 11/24/23 07/23/24 07/22/24 History olodaterol 2.5 mcg/actuation mist 2 puff inhalation DAILY 11/24/23 07/23/24 07/23/24 06:00 History for inhalation polyvinyl alcohol 1.4 % eye drops 1 drp ophthalmic (eye) BID 11/24/23 07/23/24 07/22/24 History sildenafil 100 mg tablet See Rx Instructions .Route 11/24/23 07/23/24 Unknown History .COMPLEX PRN Erectile Dysfunction simvastatin 80 mg tablet 40 mg PO QPM 11/24/23 07/23/24 07/22/24 History Allergies Allergy/AdvReac Type Severity Reaction Status Date / Time atorvastatin [From Lipitor] Allergy muslce Verified 11/23/23 20:42 weakness PFSH Acute 2 PFSH: Medical History Hypoxemia COPD with acute exacerbation Acute respiratory failure with hypoxia COVID-19 Left lower lobe community-acquired pneumonia. Secondary bacterial pneumonia cannot be completely ruled out Erectile dysfunction Elevated PSA COPD (chronic obstructive pulmonary disease) CHF (congestive heart failure) Specifics unknown. Currently compensated. Hypertension Hyperlipidemia Diabetes BPH loc w urin obs/LUTS Surgical History Status post left inguinal hernia repair (01/28/22) History of umbilical hernia repair S/P CABG (coronary artery bypass graft) Stented coronary artery S/P angioplasties S/P tonsillectomy History of thyroid surgery Family History Mother , 70's No problems noted. Father , 73 No problems noted. Social History Smoking and tobacco/nicotine status: former use of tobacco/nicotine Alcohol intake: never Substance/Drug Use: never Marital status: service: Yes Current occupational status: retired Vitals/I&O/Wt Last Vital Signs Temp 97.3 F L 07/23/24 09:07 Pulse 62 07/23/24 13:02 Resp 16 07/23/24 13:02 BP 131/80 07/23/24 13:02 Pulse Ox 96 07/23/24 13:02 O2 Del Method Room Air 07/23/24 09:07 Weight last 48 hrs Weight 108.409 kg Physical Exam 2 Const: COMMON NORMALS: no acute distress and patient oriented x3 HENMT: COMMON NORMALS: normocephalic Eye: COMMON NORMALS: Equal, round and reactive pupils present and EOMs intact bilaterally Resp: COMMON NORMALS: normal respiratory effort, No retractions, No use of accessory muscles and clear to auscultation bilaterally AUSCULTATION: clear to auscultation bilaterally Cardio: COMMON NORMALS: no JVD, regular rate, regular rhythm, S1 normal heart sound present and S2 normal heart sound present RATE: regular rate RHYTHM: regular rhythm HEART SOUNDS: S1 normal heart sound present and S2 normal heart sound present GI: COMMON NORMALS: Normal to inspection, nondistended, normoactive bowel sounds present, Soft to palpation and non-tender Extremity: COMMON NORMALS: no pedal edema Neuro: COMMON NORMALS: patient oriented x3, CN's II-XII intact bilaterally and moves all extremities Psych: COMMON NORMALS: mental status grossly normal Data 07/23/24 09:27 07/23/24 09:27 A&P Assessment and plan (1) Chest pain: Qualifiers: Chest pain type: unspecified Qualified Code(s): R07.9 - Chest pain, unspecified (2) Diabetes: (3) Hypertension: (4) CHF (congestive heart failure): Plan Chest pain -With underlying CABG, CAD Plan -Nitro drip -Heparin drip -Aspirin, statin, Plavix, beta-britta -Cardiology consulted -Cardiac echo -N.p.o. midnight for plans of possible cardiac cath tomorrow -Monitor for recurrent chest pain -Full code -Heparin drip for DVT prophylaxis so she will Type 2 diabetes mellitus, low-dose sliding scale Attestations 2 Medical Necessity Statement*: Patient requires hospitalization, inpatient, greater than 2 midnights for chest pain Diagnoses Chest pain R07.9 Chest pain type: unspecified Diabetes E11.9 Hypertension I10 CHF (congestive heart failure) I50.9
[2024-07-23] MEDS: heparin drip 25,000 UNIT/500 ML PREMIX 30.36 UNIT IV (13:49)
[2024-07-23 13:50] LABS: Erythrocyte Sedimentation Rate 6 mm/hr (0-10)
[2024-07-23] MEDS: nitroglycerin drip 50 MG/250 ML PREMIX IV (13:53)
[2024-07-23] MEDS: heparin 5,000 unit/mL INJ 1 mL IVP (13:58)
[2024-07-23 14:01] LABS: Creatine Phosphokinase 88 U/L (39-308); NT Pro B Type Natriuretic Pept 374 pg/mL (0-450)
[2024-07-23 14:40] LABS: Estmated Average Glucose 143; Hemoglobin A1C 6.6 % (4.0-6.0)
[2024-07-23 14:44] LABS: Chol HDL Ratio 3.65 mg/dL (1.0-5.00); Cholesterol 146 mg/dL (0-200); HDL Cholesterol 40 mg/dL (60-100); LDL Cholesterol Calculated 80 mg/dL (50-129); Thyroid Stimulating Hormone 5.85 uIU/mL (0.27-4.20); Triglycerides 128 mg/dL (0-150)
[2024-07-23] MEDS: aspirin 81 mg EC Tablet PO (14:55)
--- NOTE | 2024-07-23 15:45 | PC.NURSE ---
received into room 108 from er at 1410.report received.pt is alert and oriented x 4.denies any pain at admission.sr on monitor.ntg and heparin drips infusing.pt oriented to room environment.instructed to notify staff for any chest pains,sob,or for any concerns at all.pt verb understanding of instructions
[2024-07-23 16:18] LABS: Troponin 5 6HR 31.68 ng/L (0-15)
[2024-07-23 16:22] LABS: Troponin 5 6HR Delta 14.68 ng/L (0-12)
[2024-07-23 16:40] LABS: Glucose Point of Care 279 mg/dL (70-110)
[2024-07-23] MEDS: insulin lispro 100 unit/1 mL SUBCUT (18:13)
[2024-07-23] MEDS: famotidine 20 mg Tablet PO (18:14)
[2024-07-23] MEDS: carvedilol 25 mg Tablet PO (18:14)
[2024-07-23 20:44] LABS: Glucose Point of Care 102 mg/dL (70-110)
[2024-07-23 21:02] LABS: Partial Thromboplastin Time 141.1 SECONDS (23.9-36.7)
[2024-07-24] VITALS (11 sets, daily range): BP systolic 102–128; BP diastolic 62–91; PULSE 57–81; RESP 16–24; TEMP 36.4–36.8; O2SAT 91–95
[2024-07-24 03:14] LABS: Basophils % 0.3 %; Eosinophils # 0.1 10^3/uL (0.0-0.8); Eosinophils % 1.4 %; Hematocrit 41.3 % (37-53); Lymphocytes # 2.5 10^3/uL (0.8-4.8); Lymphocytes % 27.4 %; Mean Corpuscular HGB Conc 32.4 g/dL (30-55); Mean Corpuscular Hemoglobin 30.5 pg (27-33); Mean Corpuscular Volume 93.9 fl (82-101); Mean Platelet Volume 9.6 fL (7.4-10.4); Monocytes # 1.2 10^3/uL (0.2-0.9); Monocytes % 12.7 %; Neutrophils # 5.26 10^3/uL (1.8-7.7); Neutrophils % 57.9 %; Nucleated Red Blood Cells % 0 %; Platelet Count 193 10^3/cmm (157-399); Red Cell Distribution Width 12.7 % (12.1-15.1)
[2024-07-24 03:35] LABS: Alanine Aminotransferase 14 U/L (0-41); Albumin Level 3.9 g/dL (3.5-5.2); Alkaline Phosphatase 57 U/L (40-130); Anion Gap 11.9 (5-19); Aspartate Amino Transferase 32 U/L (0-40); Blood Urea Nitrogen 14 mg/dL (8-23); Calcium 9.3 mg/dL (8.5-10.5); Carbon Dioxide 25 mmol/L (22-29); Chloride 105 mmol/L (98-107); Creatinine Clr Calc Pharmacy 74.9018; Globulin 3.5 g/dL (1.3-4.6); Glucose 127 mg/dL (65-115); Osmolality Calculated 288 mOsm/kg (285-295); Partial Thromboplastin Time 132.9 SECONDS (23.9-36.7); Potassium 3.9 mmol/L (3.5-5.1); Sodium 138 mmol/L (136-145); Total Bilirubin 0.4 mg/dL (0.15-1.2); Total Protein 7.4 g/dL (6.6-8.7)
[2024-07-24] MEDS: levothyroxine 50 mcg Tablet PO (05:45)
[2024-07-24] MEDS: multivitamin therapeutic Tablet 1 TAB PO (05:45)
[2024-07-24] MEDS: aspirin 325 mg Tablet PO (05:45)
[2024-07-24 06:05] LABS: Glucose Point of Care 106 mg/dL (70-110)
--- NOTE | 2024-07-24 06:11 | XACV_ITS ---
Exam Room: [facility] Ht: 175 cm Wt: 108 kg BSA: 2.33 m2 Gender: Male : 1945 Any Known Allergies: Other Exam Priority: Routine Procedure(s): Procedure Description: Diagnostic procedure Procedure Description: PCI procedure Procedure Description: Venous Graft Catheterization Procedure Description: CALLAHAN Graft Catheterization Procedure Description: Drug Eluting Coronary Stent Procedure Description: PTCA Procedure Description: Miscellaneous Procedure Description: ACT Procedure Description: Coronary Angiography Diagnostic Cath Status: Urgent Diagnostic Findings * INDICATION: Unstable angina. * Left Main has no significant disease. * Left Anterior Descending has patent prior stent in the mid vessel. Supplies collaterals to RCA territory. 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 * Mid Circumflex: severe 80-90% stenosis, ALFRED: 3 flow. * Bypass grafts: CALLAHAN was not used. SVG grafts to RCA and OM are occluded. * Coronary angiography shows right dominance. PCI Status: Urgent PCI Indication: Other Interventional Findings * Procedure detail: We engaged left main artery with XB 3.5 guide catheter. IV heparin was administered to maintain anticoagulation. Run-through wire was used to cross the stenosis. We predilated the stenosis with 4.0 x 12 mm semicompliant balloon. This was followed by placement of 4.5 x 18 mm resolute Linnea drug-eluting stent. At this time final angiogram was performed that showed excellent stent expansion, no residual stenosis and ALFRED-3 flow. Guidewire and guide catheter were removed. Patient left the Unit Trust Manager in a stable condition.. * Mid Circumflex: 80% stenosis treated with a AB TREK 4.00X12 RX BALLOON, and URIEL Sherwood LINNEA 4.5X18 KIM. 0% residual stenosis, ALFRED: 3 flow. Conclusions 1. Severe mid left circumflex artery stenosis s/p successful revascularization with 1 stent. 2. Patient has prior CABG. 3. Mid Circumflex was treated with a Balloon, and Drug Eluting Stent. Recommendations * Dual antiplatelet therapy with aspirin and plavix. * High intensity statin therapy. * Outpatient cardiology follow up in 2 weeks. Interventional RX Recommendation: PCI w/o planned CABG Diagnostic RX Recommendation: PCI w/o planned CABG Anticoagulation: Heparin Pressures Phase:Rest AO : 101 / 63 ( 81 ) @ 9:19:00 AM 101 / 57 ( 77 ) @ 9:24:00 AM Clinical Evaluation EBL: 5mL-10mL Procedural Details Procedure Consent Obtained. Pre-Procedure Time Out. Identified patient by full name and date of as verbalized by the patient/guarantor. Does the consent match the physician's order: Yes. Accurate & Complete Informed Consent: Yes. Inpatient/Outpatient History & Physical on Chart: Yes. If H&P is completed, is and addenduem needed: No. Visualize and Verify Site with Patient/Guarantor: N/A. Relevant Radiology Images available: Yes. The risks, benefits, and alternatives of sedation and/or procedure were discussed by physician. The patient agrees to continue. Procedure started. [facility] Clinical Fraility Score: 4: Vulnerable. Unit Trust Manager Indications: New Onset Angina/Unstable Angina. Chest Pain Symptom Assessment: Typical Angina Symptoms. Cardiovascular Instability: No. Correct patient, site and procedure confirmed by cath team. PERRLA. Strong, equal hand hybrid derivatives trader bilaterally. Lungs clear x 5 lobes. Nitro gtt infusing at 5mcg/min was stopped on arrival to the geophysical laboratory director. IV Site on Arrival: 18 gauge in the left anticubital. IV Fluids: 0.9% NaCl at KVO. 800 mL infused prior to geophysical laboratory director. Pre Procedural Pulses: bilateral dorsalis pedis was Doppled. Pre Procedural Pulses: bilateral posterior tibial was Doppled. Oxygen started at 2liters/min via nasal canula. bilateral groins was prepped with chloroprep then draped in the usual sterile fashion. Physician notified. Baseline sample Acquired. HR: 59 BPM. Patient's family in the geophysical laboratory director waiting room. Dr. Nicholas will update at the completion of the procedure. Equipment: 6F - Femoral. Cardiac Cath Pack. ACIST Manifold Kit Model BT 2000. Heparinized Saline (2 units/mL), 1000 mL bag. Kit, Micropuncture. Physician arrived. Physician scrubbed in. Immediate Pre-Procedure Time Out. Correct Patient: Yes; Correct Procedure: Yes; Correct Site: Yes; Correct Patient Position: Yes; Correct Supplies: Yes; Dried Flammable Prep: Yes; Blood Products Available: N/A. Lidocaine 1% infiltrated to the right groin. Arterial access obtained with micropuncture set. A 5 mozambican JL4 catheter in over the standard J wire. Catheter removed over the standard J wire. A 5 mozambican JR4 catheter in over the standard J wire. Cine of the RCA performed. Catheter redirected to the SVG --> Diagonal. SVG's to Diaganol visualized. Catheter redirected to the RCA. RCA visualized. Catheter redirected to the SVG --> OM. SVG's to OM visualized. Catheter redirected to the CALLAHAN --> LAD. CALLAHAN to LAD visualized. Catheter removed over the exchange J wire. A 5 mozambican JL4 catheter in over the exchange J wire. Multiple views taken of left coronary artery. Catheter removed over the exchange J wire. 6 mozambican XB 3.5 guide catheter was inserted over the wire. Runthrough guidewire was advanced through the guide catheter to lesion in the mid Circ. Inflation number : 1 A AB TREK 4.00X12 RX BALLOON was prepped and advanced across the Mid CX , then inflated to 8 SHEN for 0:10 seconds. Inflation number: 2 The AB TREK 4.00X12 RX BALLOON was reinflated across the Mid CX, to 8 SHEN for 0:16 seconds. Inflation number: 3 The AB TREK 4.00X12 RX BALLOON was reinflated across the Mid CX, to 12 SHEN for 0:14 seconds. Balloon out. Inflation Number : 4 A URIEL Sherwood LINNEA 4.5X18 KIM -Lot Number# [id number] was prepped and advanced across the Mid CX. The stent was deployed at 12 SHEN for 0:16 seconds. Exp. . Stent balloon out over wire. Results checked. Wire out. Results checked. ACT drawn. Results out of range HI. Guide catheter out OTW. A Right femoral angiogram was performed to determine safe placement of closure device. Dr. Nicholas scrubbed out. A Angio-Seal VIP (St. Krishan) was successful obtaining hemostatsis at the Right Femoral artery insertion site. Lot # [id number]. Exp. . Angioseal placed without complications. No signs or symptoms of hematoma noted. Sterile dressing applied per usual sterile fashion. Post Procedure: Pulses reassessed and unchanged. PERRLA. Strong, equal hand hybrid derivatives trader bilaterally. No VTE prophylaxis required. Medication's Wasted: Lidocaine 1% = 5 mL. Medication's Wasted: Other = Versed 1 mg. Medication's Wasted: Other = Fentanyl 75 mcg. Medication's Wasted: Heparin = 4000 units. Total IV fluids: 75 mL. PCI Indication: CAD (without ischemic symptoms). Post-op diagnosis: PCI of the Mid CX with one KIM. Complications: none. Estimated blood loss: 5mL-10mL. Responsiveness - Normal response to verbal stimuli; alert and oriented, PERRLA. Airway - Unaffected, no intervention required; spontaneous ventilation. Circulation: W/N/L, pulses unchanged. Nausea/Vomiting: No. Procedure completed. Patient transferred by bed to 1st floor. Vital chart was stopped. Access Site Site: Right Femoral artery Sheath Size: 6 Fr Hemostasis Method: Angio-Seal VIP (St. Krishan) Hemostasis Success: Successful Procedure Medications Start: 8:49 AM Stop: 8:49 AM Medication: Versed Amount: 1 mg Route: I.V. Start: 8:49 AM Stop: 8:49 AM Medication: Fentanyl Amount: 25 mcg Route: I.V. Start: 9:04 AM Stop: 9:04 AM Medication: Versed Amount: 1 mg Route: I.V. Start: 9:22 AM Stop: 9:22 AM Medication: Versed Amount: 1 mg Route: I.V. Start: 9:22 AM Stop: 9:22 AM Medication: Heparin Amount: 7000 units Route: I.V. Start: 9:46 AM Stop: 9:46 AM Medication: Plavix Amount: 300 mg Route: P.O. I, the attending physician, have reviewed and verified all procedure medications. Yes, all medications given per verbal order History/Risk Factors Hypertension: Yes Dyslipidemia: Yes Peripheral Arterial Disease (PAD): No Myocardial Infarction (AL): No Obesity: Yes Renal Disease: No Prior Interventions PCI: Yes CABG: Yes Valve Surgery: No Report Signatures Finalized by Rasheed Nicholas MD on 08/02/2024 06:27 PM
[2024-07-24] MEDS: sodium chloride 0.9% 1,000 ML 50 ML IV (06:16)
[2024-07-24] MEDS: cholecalciferol (vitamin D3) 1,000 unit Tablet 1000 UNIT PO (08:12)
[2024-07-24] MEDS: aspirin 81 mg EC Tablet PO (08:12)
[2024-07-24] MEDS: clopidogrel 75 mg Tablet PO (08:12)
[2024-07-24] MEDS: famotidine 20 mg Tablet PO ×2 (08:12→18:39)
[2024-07-24 08:18] LABS: Partial Thromboplastin Time 83.9 SECONDS (23.9-36.7)
--- NOTE | 2024-07-24 09:00 | W.PM.OPSUD ---
Surgery/Procedure H&P Update DATE OF PROCEDURE: July 24, 2024 DATE H&P PERFORMED: 07/23/24 H&P UPDATE INFORMATION: I have reviewed H&P completed within last 30 days, I have examined patient prior to procedure and No changes to prior documentation PREOP DIAGNOSIS: Unstable angina PRIMARY INDICATION FOR PROCEDURE: Unstable angina PLANNED PROCEDURE: Operation Date: 07/24/24 08:30 Proposed Procedures p Cardiac Catheterization(Left) - Rasheed Nicholas M.D Possible percutaneous coronary intervention PATIENT REASSESSED PRIOR TO SEDATION, WITH NO CHANGE NOTED: Yes PHYSICAL EXAM: alert, oriented x 3, clear to auscultation bilaterally and regular rate & rhythm AIRWAY EVAL/ANESTHESIA PLAN: normal airway, ASA III, Local Anesthesia, Risks, benefits & alternatives of sedation and/or procedure discussed and Patient agrees to continue as planned ADDITIONAL INFORMATION: Moderate sedation
--- NOTE | 2024-07-24 09:14 | PC.CHAP ---
Pastoral Care Encounter/Spiritual Assessment Type of Contact [] Declined milk pasteurizer visit [] Patient/Family/Request visit [] Outpatient visit [] Follow-up visit [] Physician referral [] Code/Alert [x] Routine visit [] Staff referral [] Actively dying [] Patient sleeping [] Family support [] [] Out of room [] Palliative care [] [] Receiving care in room [] Pre-surgical visit [] Trauma [] Long length of stay [] ICU visit [] Other: Relational/Emotional Strength [x] Patient feels connected with others/family/visitors/staff [] Distress [] Loneliness/isolation [] Abandonment Spirituality of Patient [x] Person of Tomasa [] Attends Gnosticism of their Tomasa [x] Believes in Prayer [] Reads Bible or Anabaptism materials [] There are Spiritual issues to be addressed Substation Superintendent Interventions [x] Prayer [x] Active listening [] Non-anxious presence [x] Spiritual/emotional support [] Crisis/trauma care [] Spiritual counseling [] Bereavement support [] Provided bereavement packet [] Provided Bible/devotional materials [] Provided toy/stuffed animal, coloring book to patient or family member [] Provided Communion [] Anointing/[place] [] Salvation [x] Completed spiritual assessment [] Other: Impact on Illness or Injury [] Angry [] Fearful [] Anxious [] Often cries [] Exhaustion [] Unable to work [] Unable to attend sikh [] Unable to walk/stand [] Unable to read [] Unable to drive [] Unable to eat/drink [] Unable to sleep [] Unable to be with family [] Patient intubated [] Other: Summary Time spent with patient 5 min
--- NOTE | 2024-07-24 09:42 | P.PCN_ITS ---
Procedure Note: Date of procedure: 07/24/24 Pre-procedure diagnosis: Unstable angina Post-procedure diagnosis: other (Severe mid Left circumflex artery stenosis s/p PCI with 1 stent) Procedure: Left heart cath: Left main artery is patent. Mid left circumflex artery has severe 80-90% stenosis. LAD has patent prior stent with mild ISR. RCA is EMBOSSING TOOLSETTER. All venous grafts are occluded. CALLAHAN to LAD was not used Status post accessible revascularization of the mid left circumflex artery with 1 stent. Performing Provider: Rasheed Nicholas Estimated blood loss (mL): 10 Complications: None Condition: stable Disposition: floor Coding Level of Care Code Acute Code for [facility] Fwd
[2024-07-24] MEDS: carvedilol 25 mg Tablet PO ×2 (10:01→18:39)
[2024-07-24] MEDS: spironolactone 25 mg Tablet PO (10:02)
--- NOTE | 2024-07-24 11:15 | ECG_ITS ---
[employer] Test Date: 2024-07-24 Pat Name: Chau Monroe Department: Room: 108 Gender: Male Inspector Materials [employer] Processes: : 1945 Requested By: Rasheed Nicholas Order Number: [id number] Fernandez MD: Rasheed Nicholas M.D. Measurements Intervals [place] Rate: 78 P: -72 [place]: 152 QRS: -72 QRSD: 142 T: -29 QT: 408 QTc: 467 Interpretive Statements SINUS RHYTHM RIGHT BUNDLE BRANCH BLOCK [120+ ms QRS DURATION, UPRIGHT V1, 40+ ms S IN I/aVL/V4/V5/V6] LEFT ANTERIOR FASCICULAR BLOCK [QRS AXIS <= -45, QR IN I, RS IN II] Compared to ECG 07/23/2024 11:16:30 Sinus bradycardia no longer present Ventricular premature complex(es) no longer present First degree AV block no longer present Electronically Signed On 07-25-2024 11:15:42 [employer] GLASSWARE REPLACER by Rasheed Nicholas M.D. [email or web address]
--- NOTE | 2024-07-24 11:23 | XACV_ITS ---
Exam Room: 2 Ht: 175 cm Wt: 108 kg BSA: 2.33 m2 Gender: Male : 1945 Any Known Allergies: Other Exam Priority: Routine Procedure(s): Procedure Description: Diagnostic procedure Procedure Description: Coronary Angiography Diagnostic Cath Status: Urgent Diagnostic Findings * INDICATION: Patient had PCI of mid Left circumflex artery earlier today. Patient went to CSU and started having bilateral arms. Some radiation to neck. EKG does not show ST elevation but as discomfort is not relieving with nitro, will take him back for angiogram. * No significant disease noted in the Left Main, Left Anterior Descending, Circumflex coronary arteries. Recently placed mid left circumflex artery stent is patent. RCA and bypass grafts not injected as known occluded. Conclusions 1. No significant disease noted in the Left Main, Left Anterior Descending, Circumflex coronary arteries. Recently placed mid left circumflex artery stent is patent. RCA and bypass grafts not injected as known occluded. 2. Patient has prior CABG. Recommendations * Aggressive risk factor modification. * Outpatient cardiology follow up in 2 weeks. * Dual antiplatelet therapy. Interventional RX Recommendation: medical therapy and/or counseling Diagnostic RX Recommendation: medical therapy and/or counseling Pressures Phase:Rest AO : 92 / 67 ( 80 ) @ 11:49:00 AM Clinical Evaluation EBL: 5mL-10mL Procedural Details Procedure Consent Obtained. Pre-Procedure Time Out. Identified patient by full name and date of as verbalized by the patient/guarantor. Does the consent match the physician's order: Yes. Accurate & Complete Informed Consent: Yes. Inpatient/Outpatient History & Physical on Chart: Yes. If H&P is completed, is and addenduem needed: No. Visualize and Verify Site with Patient/Guarantor: N/A. Relevant Radiology Images available: Yes. The risks, benefits, and alternatives of sedation and/or procedure were discussed by physician. The patient agrees to continue. Procedure started. [facility] Clinical Fraility Score: 4: Vulnerable. Silk Screen Painter Indications: Worsening Angina/Unstable angina. Chest Pain Symptom Assessment: Typical Angina Symptoms. Cardiovascular Instability: No. Correct patient, site and procedure confirmed by cath team. Current diagnosis: Unstable angina. PERRLA. Strong, equal hand mill attendant bilaterally. Lungs clear x 5 lobes. Oxygen started at 2liters/min via nasal canula. left groin was prepped with chloroprep then draped in the usual sterile fashion. right radial was prepped with chloroprep then draped in the usual sterile fashion. Physician arrived. IV Site on Arrival: 18 gauge in the left anticubital. IV Fluids: 0.9% NaCl at KVO. 400 mL infused prior to quality lab technician. Pre Procedural Pulses: bilateral dorsalis pedis was Doppled. Pre Procedural Pulses: bilateral posterior tibial was Doppled. Pre Procedural Pulses: right radial was 2+. Physician notified. Baseline sample Acquired. HR: 82 BPM. Patient's family in the quality lab technician waiting room. Dr. Nicholas will update at the completion of the procedure. Equipment: 6F - Radial. Cardiac Cath Pack. ACIST Manifold Kit Model BT 2000. Heparinized Saline (2 units/mL), 1000 mL bag. Physician scrubbed in. Immediate Pre-Procedure Time Out. Correct Patient: Yes; Correct Procedure: Yes; Correct Site: Yes; Correct Patient Position: Yes; Correct Supplies: Yes; Dried Flammable Prep: Yes; Blood Products Available: N/A. Lidocaine 1% infiltrated to the right radial. Arterial access obtained. A 5 bengali TIG catheter in over the exchange J wire. Multiple views taken of left coronary artery. ACT drawn. Results 189 seconds. Therapeutic limits - pre-heparin administration 90-150 seconds and monitoring heparin during a vascular procedure >250 seconds. Catheter removed over the exchange J wire. Dr. Nicholas scrubbed out. A TR Band was successful obtaining hemostatsis at the Right Radial artery insertion site. Post Procedure: Pulses reassessed and unchanged. PERRLA. Strong, equal hand mill attendant bilaterally. No VTE prophylaxis required. Medication's Wasted: Lidocaine 1% = 18 mL. Medication's Wasted: Nitro = 49.8 mg. Medication's Wasted: Heparin = 4000 mL. Total IV fluids: 15 mL. Medication's Wasted: Other = Versed 1 mg. Medication's Wasted: Other = Fentanyl 75 mcg. Post-op diagnosis: patient stent. Complications: none. Estimated blood loss: 5mL-10mL. Responsiveness - Normal response to verbal stimuli; alert and oriented, PERRLA. Airway - Unaffected, no intervention required; spontaneous ventilation. Circulation: W/N/L, pulses unchanged. Nausea/Vomiting: No. Procedure completed. Patient transferred by bed to 1st floor. Vital chart was stopped. Access Site Site: Right Radial artery Sheath Size: 6 Fr Hemostasis Method: TR Band Hemostasis Success: Successful Procedure Medications Start: 11:42 AM Stop: 11:42 AM Medication: Versed Amount: 1 mg Route: I.V. Start: 11:42 AM Stop: 11:42 AM Medication: Fentanyl Amount: 25 mcg Route: I.V. Start: 11:45 AM Stop: 11:45 AM Medication: Nitrogylcerin Amount: 200 mcg Route: I.A. Start: 11:57 AM Stop: 11:57 AM Medication: Heparin Amount: 2000 units Route: I.V. I, the attending physician, have reviewed and verified all procedure medications. Yes, all medications given per verbal order History/Risk Factors Hypertension: Yes Dyslipidemia: Yes Peripheral Arterial Disease (PAD): No Myocardial Infarction (AK): No Obesity: Yes Renal Disease: No Prior Interventions PCI: Yes CABG: Yes Valve Surgery: No Report Signatures Finalized by Rasheed Nicholas MD on 08/02/2024 06:33 PM
[2024-07-24] MEDS: nitroglycerin 0.4 mg sublingual Tablet SUBLINGUAL (11:25)
--- NOTE | 2024-07-24 11:34 | PM.MISC ---
Miscellaneous Note Purpose of Documentation: Brief note Note: Post PCI patient went to CSU and started having bilateral arms. Some radiation to neck. EKG does not show ST elevation but as discomfort is not relieving with nitro, will take him back for angiogram.
--- NOTE | 2024-07-24 11:55 | PM.PROC ---
Procedure Note: Date of procedure: 07/24/24 Pre-procedure diagnosis: Unstable angina Post-procedure diagnosis: other (Patent recent left circumflex artery stent) Procedure: Left heart cath was performed as patient was having significant arm discomfort radiation to jaw. Coronary angiogram demonstrated patent left circumflex artery stent and LAD arteries. Continue aspirin and plavix Transfer back to CSU Estimated blood loss (mL): 5 Complications: None Condition: stable Disposition: floor Coding Level of Care Code Acute Code for Adonay Hernandez
[2024-07-24 12:43] LABS: Glucose Point of Care 219 mg/dL (70-110)
[2024-07-24] MEDS: insulin lispro 100 unit/1 mL SUBCUT (13:13)
--- NOTE | 2024-07-24 15:12 | P.PN_ITS ---
Subjective 2 Subjective: Patient was seen this morning, after his cardiac cath procedure, had 1 stent placed, resting comfortably, no complaints of chest pain, Vitals/I&O/Wt Last Vital Signs Temp 97.6 F 07/24/24 08:00 Pulse 81 07/24/24 10:00 Resp 16 07/24/24 10:00 BP 128/91 07/24/24 08:00 Pulse Ox 95 07/24/24 10:00 O2 Del Method Room Air 07/24/24 10:00 07/24/24 07/24/24 07/24/24 06:59 14:59 22:59 Intake Total 167.2 / 870.278 111.172 / 111.172 Output Total 700 / 1400 Balance -532.8 / -529.722 111.172 / 111.172 Weight last 48 hrs Weight 107.955 kg Weight 107.955 kg Weight 108.409 kg Physical Exam 2 Const: COMMON NORMALS: no acute distress and patient oriented x3 Resp: COMMON NORMALS: normal respiratory effort, No retractions, No use of accessory muscles and clear to auscultation bilaterally AUSCULTATION: clear to auscultation bilaterally Cardio: COMMON NORMALS: regular rate, regular rhythm, S1 normal heart sound present and S2 normal heart sound present RATE: regular rate RHYTHM: r egular rhythm HEART SOUNDS: S1 normal heart sound present and S2 normal heart sound present GI: COMMON NORMALS: Normal to inspection, nondistended, normoactive bowel sounds present and non-tender Extremity: COMMON NORMALS: no pedal edema Neuro: COMMON NORMALS: patient oriented x3 Psych: COMMON NORMALS: mental status grossly normal Data 07/24/24 02:49 07/24/24 02:49 A&P Assessment and plan (1) Chest pain: Qualifiers: Chest pain type: unspecified Qualified Code(s): R07.9 - Chest pain, unspecified (2) Diabetes: Qualifiers: Diabetes mellitus complication status: with hyperglycemia Diabetes mellitus long term care pharmacist insulin use: without longterm use Diabetes mellitus type: t ype 2 Qualified Code(s): E11.65 - Type 2 diabetes mellitus with hyperglycemia (3) Hypertension: Qualifiers: Hypertension type: primary hypertension Qualified Code(s): I10 - Essential (primary) hypertension (4) CHF (congestive heart failure): Plan Chest pain -With underlying CABG, CAD Plan -Nitro drip -Aspirin, statin, Plavix, beta-britta -Cardiology consulted -Cardiac echo -Monitor for recurrent chest pain -Full code -Heparin drip for DVT prophylaxis so she will Type 2 diabetes mellitus, low-dose sliding scale Patient had cardiac cath cardiac catheterization procedure, severe stenosis of the mid left circumflex treated with drug-eluting stent, due to recurrent chest pain after cath, went back to Rounding Machine Tender, repeat cath shows patent stent, will monitor closely, currently on a nitro drip, monitor closely overnight Attestations 2 Medical Necessity Statement*: Patient requires hospitalization for recurrent chest pain, requiring coronary angiography, cardiac stenting, nitro drip Diagnoses Chest pain R07.9 Chest pain type: unspecified Type 2 diabetes mellitus with hyperglycemia, without long-term current use of insulin E11.65 Diabetes mellitus complication status: with hyperglycemia Diabetes mellitus longterm insulin use: without long term care pharmacist use Diabetes mellitus type: type 2 Primary hypertension I10 Hypertension type: primary hypertension CHF (congestive heart failure) I50.9
--- NOTE | 2024-07-24 15:13 | P.PN_ITS ---
<Statement entered by Rasheed Nicholas M.D - 07/24/24 21:08> Patient was evaluated and cared for in conjunction with an advanced practice practitioner. I personally examined the patient and reviewed the chart and all pertinent data including imaging, telemetry, and laboratory results. I discussed the patient in detail with the advanced practice practitioner. Please see their note for complete progress note, results and agreed upon plan of care for the patient. GENERAL: Patient is alert and oriented HEART: Regular S1 and S2 LUNGS: Clear to auscultation bilaterally EXTREMITIES: Lower extremities with no edema Subjective 2 Subjective: Patient went for coronary angiogram this morning: Patent left main, severe stenosis of the mid left circumflex treated with KIM x 1, previously placed LAD stent patent with mild in-stent restenosis, RCA TECHNICAL MGR, all venous grafts were occluded. After returning to [facility] he developed left arm pain with radiation to the jaw, he returned to the Engineering Technologist for repeat coronary angiogram: Patent left circumflex and LAD arteries. He will continue on nitroglycerin infusion overnight. Closure device was used for right femoral cath site. Vitals/I&O/Wt Last Vital Signs Temp 97.6 F 07/24/24 08:00 Pulse 81 07/24/24 10:00 Resp 16 07/24/24 10:00 BP 128/91 07/24/24 08:00 Pulse Ox 95 07/24/24 10:00 O2 Del Method Room Air 07/24/24 10:00 07/24/24 07/24/24 07/24/24 06:59 14:59 22:59 Intake Total 167.2 / 870.278 111.172 / 111.172 Output Total 700 / 1400 Balance -532.8 / -529.722 111.172 / 111.172 Weight last 48 hrs Weight 238 lb Weight 238 lb Weight 239 lb Physical Exam 2 Const: COMMON NORMALS: no acute distress and patient oriented x3 GENERAL APPEARANCE: cooperative ORIENTATION/CONSCIOUSNESS: Yes awake, Yes oriented to person, Yes oriented to place and Yes oriented to time Chest: COMMONS NORMALS: normal inspection of the chest and normal palpation of entire chest wall CHEST: Yes Symmetrical chest wall rise Resp: COMMON NORMALS: normal respiratory effort, No retractions, No use of accessory muscles and clear to auscultation bilaterally AUSCULTATION: clear to auscultation bilaterally Cardio: COMMON NORMALS: regular rate, regular rhythm, S1 normal heart sound present, S2 normal heart sound present, No gallops present (Cardio), No clicks present (Cardio), No murmurs present (Cardio) and No rub (Cardio) RATE: r egular rate RHYTHM: regular rhythm HEART SOUNDS: S1 normal heart sound present and S2 normal heart sound present PERIPHERAL PULSES: radial pulses present positive right 2+ and femoral pulses present positive right 2+ Neuro: COMMON NORMALS: patient oriented x3 and moves all extremities S ENSORIUM/ORIENTATION: Yes oriented to person, Yes oriented to place and Yes oriented to time Skin: WOUNDS: Yes surgical site (no hematoma palpable) Details: no odor Data 07/24/24 02:49 07/24/24 02:49 A&P Assessment and plan (1) Coronary artery disease: (2) CHF (congestive heart failure): (3) Chest pain: Qualifiers: Chest pain type: unspecified Qualified Code(s): R07.9 - Chest pain, unspecified (4) Hypertension: Qualifiers: Hypertension type: primary hypertension Qualified Code(s): I10 - Essential (primary) hypertension (5) Hyperlipidemia: Plan Left main artery is patent. Mid left circumflex artery has severe 80-90% stenosis. LAD has patent prior stent with mild ISR. RCA is TECHNICAL MGR. All venous grafts are occluded. CALLAHAN to LAD was not used Status post accessible revascularization of the mid left circumflex artery with 1 stent. Continue aspirin, Plavix, carvedilol 25 mg twice daily, atorvastatin. Attestations 2 Medical Necessity Statement*: PCI of circumflex stenosis today Coding Level of Care Code Acute Code for [facility] Diagnoses Coronary artery disease I25.10 CHF (congestive heart failure) I50.9 Chest pain R07.9 Chest pain type: unspecified Primary hypertension I10 Hypertension type: primary hypertension Hyperlipidemia E78.5
--- NOTE | 2024-07-24 15:49 | PC.NURSE ---
Addendum entered by Lani Hartmann RN 07/24/24 15:52: entered on wrong patient. Original Note: Spoke with Catholic at patient financial services regarding [facility] to come speak with patient. Was informed that they are very short staffed and she made a note to have someone come speak with the patient and family preferably before 0900am.
--- NOTE | 2024-07-24 15:53 | PC.NURSE ---
Patient returned from analytical lab technician at approx 10:00am. Patient returned with angioseal to right groin. Around 11:15 patient developed bilateral arm pain that radiated to jaw 8/10. Ring Maker notified, presented at patient bedside. One sublingual nitro was administered and EKG was obtained. Decision was made to take patient back to analytical lab technician. Patient came back for the second time around 12:15. Stent was patent. No intervention second time. Right wrist access with TR band in place. Patient has been stable and chest pain free sense returning the second time. TR band off, no hematoma or bleeding. Patient aware of activity restrictions. Nurse will continue to monitor.
[2024-07-24] MEDS: sodium chloride 0.9% 1,000 ML 100 ML IV (16:06)
[2024-07-24 16:41] LABS: Glucose Point of Care 129 mg/dL (70-110)
[2024-07-24] MEDS: atorvastatin 40 mg Tablet 20 MG PO (18:39)
[2024-07-24] MEDS: nitroglycerin drip 50 MG/250 ML PREMIX IV (19:00)
[2024-07-24 21:39] LABS: Glucose Point of Care 131 mg/dL (70-110)
[2024-07-24] MEDS: temazepam 15 mg Capsule PO (21:44)
[2024-07-25] VITALS: BP 104/68; PULSE 66; RESP 19; TEMP 36.6; O2SAT 93
[2024-07-25 04:00] VITALS: BP 119/70; PULSE 63; RESP 19; TEMP 36.8; O2SAT 91
[2024-07-25 04:01] LABS: Basophils % 0.2 %; Eosinophils # 0.1 10^3/uL (0.0-0.8); Eosinophils % 0.9 %; Hematocrit 43.7 % (37-53); Lymphocytes # 1.9 10^3/uL (0.8-4.8); Lymphocytes % 17.7 %; Mean Corpuscular HGB Conc 32.7 g/dL (30-55); Mean Corpuscular Hemoglobin 30.4 pg (27-33); Mean Corpuscular Volume 92.8 fl (82-101); Mean Platelet Volume 9.7 fL (7.4-10.4); Monocytes # 1.4 10^3/uL (0.2-0.9); Neutrophils # 7.08 10^3/uL (1.8-7.7); Neutrophils % 67.8 %; Nucleated Red Blood Cells % 0 %; Platelet Count 185 10^3/cmm (157-399); Red Blood Count 4.71 10^6/uL (3.85-5.65); Red Cell Distribution Width 13.2 % (12.1-15.1); White Blood Count 10.44 10^3/uL (3.29-11.43)
[2024-07-25 04:30] LABS: Alanine Aminotransferase 16 U/L (0-41); Albumin Level 4.1 g/dL (3.5-5.2); Alkaline Phosphatase 64 U/L (40-130); Anion Gap 15.7 (5-19); Aspartate Amino Transferase 60 U/L (0-40); Blood Urea Nitrogen 10 mg/dL (8-23); Calcium 8.8 mg/dL (8.5-10.5); Carbon Dioxide 22 mmol/L (22-29); Chloride 103 mmol/L (98-107); Creatinine Clr Calc Pharmacy 74.9018; Globulin 3.5 g/dL (1.3-4.6); Glucose 133 mg/dL (65-115); Magnesium 1.9 mg/dL (1.7-2.3); Osmolality Calculated 285 mOsm/kg (285-295); Potassium 3.7 mmol/L (3.5-5.1); Sodium 137 mmol/L (136-145); Total Bilirubin 0.5 mg/dL (0.15-1.2); Total Protein 7.6 g/dL (6.6-8.7)
[2024-07-25 05:37] VITALS: PULSE 64
[2024-07-25] MEDS: multivitamin therapeutic Tablet 1 TAB PO (06:07)
[2024-07-25] MEDS: levothyroxine 50 mcg Tablet PO (06:07)
[2024-07-25 06:42] LABS: Glucose Point of Care 143 mg/dL (70-110)
[2024-07-25 07:20] VITALS: PULSE 71; RESP 18; O2SAT 93
[2024-07-25 08:00] VITALS: BP 116/82; PULSE 69; RESP 20; TEMP 36.3; O2SAT 93
[2024-07-25] MEDS: insulin lispro 100 unit/1 mL SUBCUT ×2 (08:25→12:20)
[2024-07-25] MEDS: famotidine 20 mg Tablet PO (08:27)
[2024-07-25] MEDS: carvedilol 25 mg Tablet PO (08:27)
[2024-07-25] MEDS: cholecalciferol (vitamin D3) 1,000 unit Tablet 1000 UNIT PO (08:27)
[2024-07-25] MEDS: aspirin 81 mg EC Tablet PO (08:27)
[2024-07-25] MEDS: clopidogrel 75 mg Tablet PO (08:27)
--- NOTE | 2024-07-25 11:43 | P.DS_ITS ---
Discharge Providers Date of Admission: 07/23/24 13:37 Date of Discharge: July 25, 2024 Attending Provider at Admission: Boni Calderon MD Attending Provider at Discharge: Boni Calderon MD Primary Care Provider: Mesha Romero MD Diagnoses at Discharge Discharge Diagnosis (1) Coronary artery disease: Status: Acute (2) CHF (congestive heart failure): Status: Acute Permanent problem details: Echocardiogram 07/23/2024: LVEF 60%, grade 1 diastolic function. (3) Chest pain: Status: Acute Qualifiers: Chest pain type: unspecified Qualified Code(s): R07.9 - Chest pain, unspecified (4) Hypertension: Status: Acute Qualifiers: Hypertension type: primary hypertension Qualified Code(s): I10 - Essential (primary) hypertension (5) Hyperlipidemia: Status: Acute Reason for Visit Reason for Visit: cp Hospital Course Hospital Course Chau [place] is a 78 year old male with a history of CABG and 2 stents, presented with chest pain. The pain began after bending and lifting twigs outside yesterday. Initially, the patient experienced aching and discomfort across the top of the arms, across the chest, which occurred the same day after the activity. The pain subsided after an hour or two but recurred later that night, accompanied by arm aches. The patient reported a systolic blood pressure reading of 171 at home. The pain persisted the following morning, prompting concern due to its localized nature, he has never had pain like this before. The patient also mentioned back pain. The patient denies smoking since 1997. The patient is on a diet and takes Metformin 500 mg twice a day. Denies any fevers, chills, no cough no shortness of breath, no wheezing, denies using energy drinks, denies any weight loss supplements, denies any drug use Patient was admitted to [facility] for chest pain, cardiology was consulted to manage on aspirin, statin, Plavix, anticoagulant therapy, patient underwent coronary angiography as below Left heart cath: Left main artery is patent. Mid left circumflex artery has severe 80-90% stenosis. LAD has patent prior stent with mild ISR. RCA is ROLL EDGE MACHINE OPERATOR. All venous grafts are occluded. CALLAHAN to LAD was not used Status post accessible revascularization of the mid left circumflex artery with 1 stent. -Due to recurrent chest pain after returning to [facility], was taken back to the cardiac catheterization lab, repeat coronary angiography showed stent patent -Was monitored after procedure on a nitroglycerin drip monitor for the next 24 hours -Patient denies any recurrent chest pain, no shortness of breath -Will be discharged on aspirin, statin, Plavix with a close follow-up with cardiology as outpatient - Please take aspirin, statin, Plavix. Do not stop taking these medications as they are keeping your heart stent open -You can use nitroglycerin as needed for chest pain -Do not use nitroglycerin with sildenafil as you have a very high risk of low blood pressure and morbidity and mortality associated. If you develop chest p ain, or come to the hospital please let us know if you have taken sildenafil -If you have recurrent chest pain please go to emergency room -Follow-up with cardiology Physical Exam Const: COMMON NORMALS: no acute distress and patient oriented x3 Resp: COMMON NORMALS: normal respiratory effort, No retractions, No use of accessory muscles and clear to auscultation bilaterally AUSCULTATION: clear to auscultation bilaterally Cardio: COMMON NORMALS: regular rate, regular rhythm, S1 normal heart sound present and S2 normal heart sound present RATE: regular rate RHYTHM: regular rhythm HEART SOUNDS: S1 normal heart sound present and S2 normal heart sound present GI: COMMON NORMALS: Normal to inspection, nondistended, normoactive bowel sounds present and non-tender Extremity: COMMON NORMALS: no pedal edema Neuro: COMMON NORMALS: patient oriented x3 Psych: COMMON NORMALS: mental status grossly normal Discharge Data Studies Completed and Pending Completed Studies During Hospitalization Category Date Time Status XR chest 1V portable [id number] Urgent Exams 07/23/24 09:12 Completed CV. echo complete* [id number] Stat Ultrasound 07/23/24 12:39 Completed Pending at discharge Category Date Time Status RETAIL DISTRICT MANAGER request for service Routine Exams 07/24/24 06:11 Taken RETAIL DISTRICT MANAGER request for service Routine Exams 07/24/24 11:23 Taken Complete Blood Count w/Auto AM LABS Lab 07/26/24 04:00 Ordered Comprehensive Metabolic Panel AM LABS Lab 07/26/24 04:00 Ordered Magnesium AM LABS Lab 07/26/24 04:00 Ordered Radiology Impressions Chest X-Ray 07/23/24 09:12 IMPRESSION: 1. No acute cardiopulmonary finding. Laboratory Results WBC 10.44 10^3/uL (3.29-11.43) 07/25/24 03:34 RBC 4.71 10^6/uL (3.85-5.65) 07/25/24 03:34 Hgb 14.30 g/dL (11.27-16.99) 07/25/24 03:34 Hct 43.7 % (37-53) 07/25/24 03:34 MCV 92.8 fl (82-101) 07/25/24 03:34 MCH 30.4 pg (27-33) 07/25/24 03:34 MCHC 32.7 g/dL (30-55) 07/25/24 03:34 RDW 13.2 % (12.1-15.1) 07/25/24 03:34 Plt Count 185 10^3/cmm (157-399) 07/25/24 03:34 MPV 9.7 fL (7.4-10.4) 07/25/24 03:34 Neut % (Auto) 67.8 % 07/25/24 03:34 Lymph % (Auto) 17.7 % 07/25/24 03:34 Long % (Auto) 13.0 % 07/25/24 03:34 Eos % (Auto) 0.9 % 07/25/24 03:34 Baso % (Auto) 0.2 % 07/25/24 03:34 Neut # (Auto) 7.08 10^3/uL (1.8-7.7) 07/25/24 03:34 Lymph # (Auto) 1.9 10^3/uL (0.8-4.8) 07/25/24 03:34 Long # (Auto) 1.4 10^3/uL (0.2-0.9) H 07/25/24 03:34 Eos # (Auto) 0.1 10^3/uL (0.0-0.8) 07/25/24 03:34 Baso # (Auto) 0.0 10^3/uL (0.0-0.1) 07/25/24 03:34 Nucleated RBC % (auto) 0 % 07/25/24 03:34 Nucleated RBCs # 0.0 /100WBC 07/25/24 03:34 ESR 6 mm/hr (0-10) 07/23/24 09:27 APTT 83.9 SECONDS (23.9-36.7) H 07/24/24 07:48 Sodium 137 mmol/L (136-145) 07/25/24 03:34 Potassium 3.7 mmol/L (3.5-5.1) 07/25/24 03:34 Chloride 103 mmol/L (98-107) 07/25/24 03:34 Carbon Dioxide 22 mmol/L (22-29) 07/25/24 03:34 Anion Gap 15.7 (5-19) 07/25/24 03:34 BUN 10 mg/dL (8-23) 07/25/24 03:34 Creatinine 1.0 mg/dL (0.7-1.2) 07/25/24 03:34 GFR Calculation Not Reportable 07/25/24 03:34 Glucose 133 mg/dL (65-115) H 07/25/24 03:34 POC Glucose 143 mg/dL (70-110) H 07/25/24 06:28 Estimat Average Glucose 143 07/23/24 09:27 Hemoglobin A1c 6.6 % (4.0-6.0) H 07/23/24 09:27 Calculated Osmolality 285 mOsm/kg (285-295) 07/25/24 03:34 Calcium 8.8 mg/dL (8.5-10.5) 07/25/24 03:34 Magnesium 1.9 mg/dL (1.7-2.3) 07/25/24 03:34 Total Bilirubin 0.5 mg/dL (0.15-1.2) 07/25/24 03:34 AST 60 U/L (0-40) H 07/25/24 03:34 ALT 16 U/L (0-41) 07/25/24 03:34 Alkaline Phosphatase 64 U/L (40-130) 07/25/24 03:34 Creatine Kinase 88 U/L (39-308) 07/23/24 09:27 Troponin T Baseline 17 ng/L (0-15) H 07/23/24 09:27 Troponin T 120 Minute 15.93 ng/L (0-15) H 07/23/24 11:23 Delta Troponin T -1.07 ABS# (0-10) L 07/23/24 11:23 Troponin T Hi Sens 6Hr 31.68 ng/L (0-15) H 07/23/24 15:50 Troponin T Hi Sens 6Hr Delta 14.68 ng/L (0-12) H* 07/23/24 15:50 C-Reactive Protein 3.0 mg/L (0.0-4.9) 07/23/24 09:27 NT-Pro-B Natriuret Pep 361 pg/mL (0-450) 07/23/24 09:27 NT-Pro-B Natriuret Pep 374 pg/mL (0-450) 07/23/24 09:27 Total Protein 7.6 g/dL (6.6-8.7) 07/25/24 03:34 Albumin 4.1 g/dL (3.5-5.2) 07/25/24 03:34 Globulin 3.5 g/dL (1.3-4.6) 07/25/24 03:34 Triglycerides 128 mg/dL (0-150) 07/23/24 11:23 Cholesterol 146 mg/dL (0-200) 07/23/24 11:23 LDL Cholesterol, Calc 80 mg/dL (50-129) 07/23/24 11:23 HDL Cholesterol 40 mg/dL (60-100) L 07/23/24 11:23 LDL/HDL Ratio 2.00 RATIO (0.00-3.22) 07/23/24 11:23 Cholesterol/HDL Ratio 3.65 mg/dL (1.0-5.00) 07/23/24 11:23 TSH 5.85 uIU/mL (0.27-4.20) H 07/23/24 11:23 Vitals Last Vital Signs Temp 97.3 F L 07/25/24 08:00 Pulse 69 07/25/24 08:00 Resp 20 H 07/25/24 08:00 BP 116/82 07/25/24 08:00 Pulse Ox 93 07/25/24 08:00 O2 Del Method Room Air 07/25/24 08:00 Discharge Plan Discharge Patient Disposition: Home Condition: Stable Prescriptions: New aspirin 81 mg Tablet,Delayed Release (Dr/Ec) 81 mg PO DAILY 30 Days Qty: 30 0RF Continued clopidogrel 75 mg tablet 75 mg PO DAILY Hold Instructions: Resume on 01/31/22. carvedilol 25 mg tablet 25 mg PO BID polyethylene glycol 3350 17 gram/dose powder See Rx Instructions .ROUTE .COMPLEX Rx Instructions: MIX 1 CAPFUL (17 GM) IN 8OZ LIQUID AND DRINK ENTIRE LIQUID ONCE DAILY TO PREVENT CONSTIPATION. cholecalciferol (vitamin D3) [Vitamin D3] 10 mcg (400 unit) Tablet 800 unit PO DAILY multivitamin Tablet 1 tab PO QAM polyvinyl alcohol 1.4 % Drops 1 drp OPHTHALMIC (EYE) BID simvastatin 80 mg Tablet 40 mg PO QPM famotidine 20 mg Tablet 20 mg PO BID levothyroxine 50 mcg Tablet 50 mcg PO QAM metformin 500 mg Tablet Extended Release 24 Hr 500 mg PO BID olodaterol 2.5 mcg/actuation Mist 2 puff INHALATION DAILY mometasone 200 mcg/actuation Hfa Aerosol Inhaler 1 puff INHALATION BID docusate sodium [Colace] 100 mg capsule 100 mg PO BID PRN (Reason: Constipation) furosemide 20 mg tablet 20 mg PO QAM PRN (Reason: Edema) nitroglycerin [Nitrostat] 0.4 mg Tablet, Sublingual 0.4 mg SUBLINGUAL Q5M PRN (Reason: Chest Pain) Qty: 30 0RF Rx Instructions: DONOT USE WITH SILDENAFIL Changed sildenafil 100 mg Tablet See Rx Instructions .ROUTE .COMPLEX PRN (Reason: Erectile Dysfunction) Qty: 1 0RF Rx Instructions: TAKE 1 TABLET BY MOUTH TWICE WEEKLY NEEDED. TAKE 60 MINUTES PRIOR TO SEXUAL ACTIVITY. LIMIT 6 DOSES PER 30 DAYS. DONOT USE WITH NITROGLYCERIN Held spironolactone 25 mg tablet 25 mg PO DAILY Hold Instructions: Resume on 08/05/24. HOLD UNTIL YOU SEE CARDIO No Action (DME) left velcro wrist brace See Rx Instructions .Route .MEDSUPPLY Qty: 1 0RF Rx Instructions: As directed Discharge Orders: Discharge Order (Routine); Ordered 07/25/24 Ordered By: Boni Calderon Referrals: Mesha Romero MD [Primary Care Provider] - Rasheed Nicholas M.D [Physician] - 1-3 days Discharge Diet: Cardiac Discharge Activity: Resume usual activity Patient Instructions: Coronary Angioplasty (DC), Opioid Safety Activity Restrictions/Additional Instructions: - Please take aspirin, statin, Plavix. Do not stop taking these medications as they are keeping your heart stent open -You can use nitroglycerin as needed for chest pain -Do not use nitroglycerin with sildenafil as you have a very high risk of low blood pressure and morbidity and mortality associated. If you develop chest pain, or come to the hospital please let us know if you have taken sildenafil -If you have recurrent chest pain please go to emergency room -Follow-up with cardiology Discharge Attestations Time Spent in Discharge Care*: greater than 30 min Quality Metrics Clinical Quality Measures [ Acute Myocardial Infaction { Clinical Trial Participant: No; Contraindication to aspirin: None; Aspirin prescribed; Contraindication to statin: None; Statin prescribed; Contraindication to PCI: None; PCI performed;}] Coding Level of Care Code 86448 Total time (in minutes) for Discharge: 45 Diagnoses Coronary artery disease I25.10 CHF (congestive heart failure) I50.9 Chest pain R07.9 Chest pain type: unspecified Primary hypertension I10 Hypertension type: primary hypertension Hyperlipidemia E78.5
--- NOTE | 2024-07-25 11:43 | P.PN_ITS ---
<Statement entered by Rasheed Nicholas M.D - 07/25/24 20:45> Patient was evaluated and cared for in conjunction with an advanced practice practitioner. I personally examined the patient and reviewed the chart and all pertinent data including imaging, telemetry, and laboratory results. I discussed the patient in detail with the advanced practice practitioner. Please see their note for complete progress note, results and agreed upon plan of care for the patient. Patient feeling well. No chest pain. No access site complications. GENERAL: Patient is alert and oriented HEART: Regular S1 and S2 LUNGS: Clear to auscultation bilaterally EXTREMITIES: Lower extremities with no edema Subjective 2 Subjective: Patient has done well overnight, no recurrence of chest pain. Status post stent to the circumflex. Plan to discharge home today. No complications with right femoral cath site. LVEF 60%. Continue aspirin, Plavix, atorvastatin 20 mg daily. We can adjust dose of atorvastatin as an outpatient if required. Will hold spironolactone on discharge but resume his previous dose of carvedilol. Follow-up with cardiology clinic with cardiology ROOF ASSEMBLER in 7 to 10 days. Vitals/I&O/Wt Last Vital Signs Temp 97.3 F L 07/25/24 08:00 Pulse 69 07/25/24 08:00 Resp 20 H 07/25/24 08:00 BP 116/82 07/25/24 08:00 Pulse Ox 93 07/25/24 08:00 O2 Del Method Room Air 07/25/24 08:00 07/24/24 07/25/24 07/25/24 22:59 06:59 14:59 Intake Total 1432.992 / 3254.164 1350 / 3254.164 360 / 360 Output Total 400 / 725 325 / 725 200 / 200 Balance 1032.992 / 2529.164 1025 / 2529.164 160 / 160 Weight last 48 hrs Weight 238 lb Weight 238 lb Weight 238 lb Physical Exam 2 Const: COMMON NORMALS: no acute distress and patient oriented x3 GENERAL APPEARANCE: cooperative ORIENTATION/CONSCIOUSNESS: Yes awake, Yes oriented to person, Yes oriented to place and Yes oriented to time Chest: COMMONS NORMALS: normal inspection of the chest and normal palpation of entire chest wall CHEST: Yes Symmetrical chest wall rise Resp: COMMON NORMALS: normal respiratory effort, No retractions, No use of accessory muscles and clear to auscultation bilaterally AUSCULTATION: clear to auscultation bilaterally Cardio: COMMON NORMALS: regular rate, regular rhythm, S1 normal heart sound present, S2 normal heart sound present, No gallops present (Cardio), No clicks present (Cardio), No murmurs present (Cardio) and No rub (Cardio) RATE: r egular rate RHYTHM: regular rhythm HEART SOUNDS: S1 normal heart sound present and S2 normal heart sound present PERIPHERAL PULSES: radial pulses present positive right 2+ and femoral pulses present positive right 2+ Neuro: COMMON NORMALS: patient oriented x3 and moves all extremities S ENSORIUM/ORIENTATION: Yes oriented to person, Yes oriented to place and Yes oriented to time Skin: WOUNDS: Yes surgical site (no hematoma palpable) Details: no odor Data 07/25/24 03:34 07/25/24 03:34 A&P Assessment and plan (1) Coronary artery disease: (2) CHF (congestive heart failure): (3) Hypertension: Qualifiers: Hypertension type: primary hypertension Qualified Code(s): I10 - Essential (primary) hypertension Plan Plan to discharge home today. Creatinine at discharge 1.0. He appears euvolemic and blood pressure is well-controlled. Resuming carvedilol, continuing aspirin, Plavix, atorvastatin. Follow-up in 7 to 10 days with cardiology. Attestations 2 Medical Necessity Statement*: Plan for discharge home Coding Level of Care Code Acute Code for [facility] Diagnoses Coronary artery disease I25.10 CHF (congestive heart failure) I50.9 Primary hypertension I10 Hypertension type: primary hypertension
[2024-07-25 11:44] LABS: Glucose Point of Care 149 mg/dL (70-110)
[2024-07-25 12:06] VITALS: BP 116/82; PULSE 73; RESP 17; O2SAT 93
--- NOTE | 2024-07-25 12:37 | PC.NURSE ---
discharge instructions given and explained.pt verb understanding of instructions.discharged via w/c to exit at this time.spouse to drive pt home
== END 2024-07-25 12:39 | disposition home or self-care (01) | DRG 322 ==
LOC: ER 12:37 → CSU 13:37
PROVIDERS: Internal Medicine; Admitting Provider Family Medicine; Emergency Provider Physician Assistant; PCP Family Medicine; Visit Provider Family Medicine
PROC: 4A023N7 Measurement of Cardiac Sampling and Pressure, Left Heart, Percutaneous Approach (ICD-10-PCS; principal; 2024-07-24 08:30)
PROC: 4A023N7 Measurement of Cardiac Sampling and Pressure, Left Heart, Percutaneous Approach (ICD-10-PCS; 2024-07-24 08:30)
DX: I25.110 Atherosclerotic heart disease of native coronary artery with unstable angina pectoris (principal); I11.0 Hypertensive heart disease with heart failure; I50.9 Heart failure, unspecified; E78.5 Hyperlipidemia, unspecified; E11.9 Type 2 diabetes mellitus without complications; J44.9 Chronic obstructive pulmonary disease, unspecified; Z95.1 Presence of aortocoronary bypass graft; Z95.5 Presence of coronary angioplasty implant and graft; Z87.891 Personal history of nicotine dependence; Z79.02 Long term (current) use of antithrombotics/antiplatelets; Z79.84 Long term (current) use of oral hypoglycemic drugs
CPT/HCPCS: 36415; 36416; 71045; 80053; 80061; 82550; 82962; 83036; 83735; 83880; 84443; 84484; 85025; 85347; 85651; 85730; 86140; 93005; 93306; 93455; 94664; 96365; 96372; 96374; 96375; 96376; 99152; 99153; 99285; C1725; C1760; C1769; C1874; C1887; C1894; C9600; G0269; J1644; J1815; J2250; J2270; J3010; J3490; J7030; Q9967

== ENCOUNTER → 2024-08-01 13:48 | Outpatient (BNVA) | payer OTHER, SELFPAY | PROVIDERS: PCP Family Medicine; Visit Provider Nurse Practitioner Family | DX: I25.10 Atherosclerotic heart disease of native coronary artery without angina pectoris (principal); I11.0 Hypertensive heart disease with heart failure; I50.9 Heart failure, unspecified; G47.00 Insomnia, unspecified; H91.90 Unspecified hearing loss, unspecified ear; Z87.891 Personal history of nicotine dependence; Z95.1 Presence of aortocoronary bypass graft | CPT/HCPCS: 36415; 80048; 99214 ==

== ENCOUNTER → 2024-09-04 10:42 | Outpatient (BNVA) | payer OTHER, SELFPAY | PROVIDERS: PCP Family Medicine; Visit Provider Internal Medicine | DX: I11.0 Hypertensive heart disease with heart failure (principal); I50.9 Heart failure, unspecified; I25.10 Atherosclerotic heart disease of native coronary artery without angina pectoris; Z87.891 Personal history of nicotine dependence | CPT/HCPCS: 99214 ==

== ENCOUNTER 2025-03-06 14:40 | Outpatient (CLI) | payer OTHER, SELFPAY ==
--- NOTE | 2025-03-06 14:44 | MR_ITS ---
WS: [id number] MRI BRAIN WITH HIGH-RESOLUTION IMAGING THROUGH THE INTERNAL AUDITORY CANALS WITHOUT AND WITH CONTRAST HISTORY: BILATERAL HEARING LOSS,SENSORINEURAL COMPARISON: None available. TECHNIQUE: Multiplanar, multisequence imaging is performed through the brain. Additional 3 mm imaging performed in multiple planes through the internal auditory canal. Postcontrast imaging with 20 ml's of MultiHance. No acute intracranial hemorrhage, midline shift, edema or mass effect. Mild cerebral and cerebellar atrophy with mild small vessel disease. No prior infarct. No significant hippocampal atrophy. Ventricles and extra-axial spaces are normal. No inferior displacement of cerebellar tonsils. Clivus and pituitary gland are normal. Internal and external auditory canals: Unremarkable. Cranial nerves VII and VIII complexes: Unremarkable. No enhancement or mass. Cerebellopontine angles: Normal. Paranasal sinuses: Moderate size mucus retention cysts in the floors of the maxillary sinuses. No air-fluid levels. Mastoid air cells: Normal. Calvarium and scalp: Normal. Visualized [place] of [place] and dural venous sinuses demonstrate no abnormality. MR/MR iac's wo/w con* [id number] IMPRESSION: 1. No mass or abnormal enhancement at the cerebellopontine angles or along the internal auditory canals. 2. No acute infarct or hemorrhage. 3. Mild cerebral and cerebellar atrophy with mild small vessel disease. 4. No prior infarct. 5. Moderate size bilateral maxillary sinus mucous retention cysts.
[2025-03-06] MEDS: gadobenate dimeglumine 20 mL vial IV (15:26)
== END 2025-03-06 14:41 | disposition home or self-care (01) ==
LOC: RAD 14:40
PROVIDERS: PCP Family Medicine; Visit Provider Otolaryngology
DX: H90.3 Sensorineural hearing loss, bilateral (principal)
CPT/HCPCS: 70553